=== PATIENT | female | born 1960 | race Two or more races ===

== ENCOUNTER 2018-08-03 09:23 | Inpatient (IN) | payer OTHER ==
[2018-08-03 09:44] VITALS: BMI 23.8
--- NOTE | 2018-08-03 11:10 | HP ---
CIWA Score Nausea/Vomitin-No Nausea/No Vomiting Muscle Tremors: 4-Moderate,w/Arms Extend Anxiety: 3 Agitation: 3 Paroxysmal Sweats: 2 Orientation: 0-Oriented Tacttile Disturbances: 0-None Auditory Disturbances: 0-None Visual Disturbances: 0-None Headache: 0-None Present CIWA-Ar Total Score: 12 - Admission Criteria OASAS Guidelines: Admission for Medically Managed Detox: Requires at least one of the followin. CIWA greater than 12 2. Seizures within the past 24 hours 3. Delirium tremens within the past 24 hours 4. Hallucinations within the past 24 hours 5. Acute intervention needed for co occurring medical disorder 6. Acute intervention needed for co occurring psychiatric disorder 7. Severe withdrawal that cannot be handled at a lower level of care (continued vomiting, continued diarrhea, abnormal vital signs) requiring intravenous medication and/or fluids 8. Admission ROS BHS - HPI Chief Complaint: I need to stop drinking and get my life back in order. Allergies/Adverse Reactions: Allergies Allergy/AdvReac Type Severity Reaction Status Date / Time No Known Allergies Allergy Verified 08/03/18 09:53 History of Present Illness: pt is a 57yr old female seeking detox for treatment for her alcohol dependence. pt states she is not HIV+ but her boyfriend is. therefore she is currently taking valtrex and truvada prophylactically. pt has in her person the valtrex but no truvada. publicity writer called pt pharmacy and confirmed that she picked up her truvada yesterday. Pharmacist insisted not to write any Rx for her truvada because she is going to different facility to get truvada prescription. Pt is to continue to see her PCP to follow regarding her medication. Exam Limitations: No Limitations - Ebola screening Have you traveled outside of the country in the last 21 days: No Have you had contact with anyone from an Ebola affected area: No Have you been sick,other than usual withdrawal symptoms: No Do you have a fever: No - Review of Systems Constitutional: Chills, Diaphoresis, Loss of Appetite, Night Sweats, Changes in sleep EENT: reports: Nose Congestion, Other (pt has a habit of lip smaking because she has no dentures) Respiratory: reports: No Symptoms reported Cardiac: reports: No Symptoms Reported GI: reports: Diarrhea, Poor Fluid Intake : reports: No Symptoms Reported Musculoskeletal: reports: Muscle Pain Integumentary: reports: Flushing, Sweating Neuro: reports: Tingling, Tremors Endocrine: reports: Excessive Sweating, Flushing, Intolerance to Cold, Intolerance to Heat Hematology: reports: No Symptoms Reported Psychiatric: reports: Judgement Intact, Mood/Affect Appropiate, Orientated x3, Agitated, Anxious Other Systems: Reviewed and Negative Patient History - Patient Medical History Hx Anemia: No Hx Asthma: No Hx Chronic Obstructive Pulmonary Disease (COPD): Yes (DOES NOT TAKE ANY MEDICATION) Hx Cardiac Disorders: Yes (DEFRIBILLATOR PLACED 4 MONTHS AGO, STROKE 4 YEARS AGO ) Hx Hypertension: Yes Hx Hypercholesterolemia: No Hx Pacemaker: No HX Cerebrovascular Accident: No Hx Seizures: Yes (1985) Hx Dementia: No Hx Diabetes: No Hx Gastrointestinal Disorders: No Hx Liver Disease: No Hx Genitourinary Disorders: No Hx Sexually Transmitted Disorders: No Hx Renal Disease (ESRD): No Hx Thyroid Disease: No Hx Human Immunodeficiency Virus (HIV): No (Pt is currently on truvada profolacticly because her boyfriend is pos.) Hx Hepatitis C: No (denies) Hx Depression: Yes (on buspar) Hx Suicide Attempt: No Hx Bipolar Disorder: No Hx Schizophrenia: No Other Medical History: anxiety - Patient Surgical History Past Surgical History: Yes Hx Neurologic Surgery: No Hx Cataract Extraction: No Hx Cardiac Surgery: No Hx Lung Surgery: No Hx Breast Surgery: No Hx Breast Biopsy: Yes (2010) Hx Abdominal Surgery: No Hx Appendectomy: No Hx Cholecystectomy: No Hx Genitourinary Surgery: No Hx Section: No Hx Orthopedic Surgery: No Anesthesia Reaction: No - PPD History Previous Implant?: Yes Documented Results: Negative w/o proof Implanted On Prior [facility] Admission?: No PPD to be Administered?: Yes - Reproductive History Patient is a Female of Child Bearing Age (11 -55 yrs old): No Last Menstrual Period: 07/15/04 Patient : No - Smoking Cessation Smoking history: Current every day smoker Have you smoked in the past 12 months: Yes Aproximately how many cigarettes per day: 12 Hx Chewing Tobacco Use: No Initiated information on smoking cessation: Yes 'Breaking Loose' booklet given: 08/03/18 - Substance & Tx. History Hx Alcohol Use: Yes Hx Substance Use: Yes Substance Use Type: Alcohol, Cocaine, Marijuana Hx Substance Use Treatment: Yes (last detox [facility] 05/2018) - Substances Abused Alcohol Route: Oral Frequency: Daily Amount used: 2 PINTS OF RUM Age of first use: 19 Date of Last Use: 08/03/18 Cocaine Route: Smoking Frequency: Daily Amount used: $100-$200 Age of first use: 25 Date of Last Use: 08/02/18 Marijuana/Hashish Route: Smoking Frequency: Daily Amount used: $20 Age of first use: 17 Date of Last Use: 08/02/18 Family Disease History - Family Disease History Family Disease History: Diabetes: Mother, Brother Admission Physical Exam [facility] - Vital Signs Vital Signs: Vital Signs - 24 hr 08/03/18 09:43 Temperature 97.3 F L Pulse Rate 91 H Respiratory 18 Rate Blood Pressure 138/72 - Physical General Appearance: Yes: Appropriately Dressed, Mild Distress, Thin, Tremorous, Irritable, Sweating, Anxious HEENTM: Yes: Hearing grossly Normal, Normal Voice, Nasal Congestion, Rhinorrhea Respiratory: Yes: Lungs Clear, Normal Breath Sounds, No Respiratory Distress Neck: Yes: No masses,lesions,Nodules Breast: Yes: Within Normal Limits Cardiology: Yes: Regular Rhythm, Regular Rate, S1, S2 Abdominal: Yes: Normal Bowel Sounds Genitourinary: Yes: Within Normal Limits Back: Yes: Normal Inspection Musculoskeletal: Yes: full range of Motion, Muscle Pain Extremities: Yes: Normal Inspection, Non-Tender, Tremors Neurological: Yes: Fully Oriented, Alert, Normal Response Integumentary: Yes: Normal Color, Diaphoresis Lymphatic: Yes: Within Normal Limits - Diagnostic (1) Alcohol dependence with uncomplicated withdrawal Current Visit: Yes Status: Chronic (2) Cannabis dependence Current Visit: Yes Status: Chronic (3) Crack cocaine use Current Visit: Yes Status: Chronic (4) At risk for sexually transmitted disease due to partner with HIV Current Visit: No Status: Chronic Comment: pt is currently on antiviral medication for a partner who is +HIV Cleared for Admission [facility] - Detox or Rehab [facility] Level of Care: Medically Managed Detox Regimen/Protocol: Librium [facility] Breath Alcohol Content Breath Alcohol Content: 0 Urine Pregancy Test - Result Urine Test Results: Negative- NO Line Present Urine Drug Screen - Results Drug Screen Negative: No Urine Drug Screen Results: THC-Marijuana, PEDRO-Cocaine
[2018-08-03] MEDS ORDERED: guaiFENesin/D-METHORPHAN HB 10 ML UNIT-DOSE CUPS PO PRN (11:51)
[2018-08-03] MEDS ORDERED: chlordiazePOXIDE HCL 25 MG CAPSULE PO PRN (11:51)
[2018-08-03] MEDS ORDERED: LOPERAMIDE HCL 2 MG CAPSULE PO PRN (11:51)
[2018-08-03] MEDS ORDERED: hydrOXYzine PAMOATE 50 MG CAPSULE (FP) PO PRN (11:51)
[2018-08-03] MEDS ORDERED: MAGNESIUM HYDROX 2400MG/30ML ORAL SUSPENSION 30 ML CUP PO PRN (11:51)
[2018-08-03] MEDS ORDERED: MENTHOL/PHENOL 1 EACH UD MM PRN (11:51)
[2018-08-03] MEDS ORDERED: MAGNESIUM CITRATE 300 ML BOTTLE PO PRN (11:51)
[2018-08-03] MEDS ORDERED: P-EPHED 60MG/TRIPROLIDI 2.5MG TABLET PO PRN (11:51)
[2018-08-03] MEDS ORDERED: IBUPROFEN 400 MG TABLET (FP) PO PRN (11:51)
[2018-08-03] MEDS ORDERED: NICOTINE POLACRILEX 4 MG GUM BUC PRN (11:51)
[2018-08-03] MEDS ORDERED: MAG HYDROX/AL HYDROX/SIMETH 30 ML UNIT-DOSE CUP PO PRN (11:51)
[2018-08-03] MEDS ORDERED: ACETAMINOPHEN 325 MG TABLET (FP) PO PRN (11:51)
[2018-08-03] MEDS ORDERED: chlordiazePOXIDE HCL 25 MG CAPSULE PO ONE (12:00)
--- NOTE | 2018-08-03 16:35 | EKG ---
Test Reason : Blood Pressure : / mmHG Vent. Rate : 081 BPM Atrial Rate : 081 BPM P-R Int : 154 ms QRS Dur : 084 ms QT Int : 396 ms P-R-T Axes : 070 044 050 degrees QTc Int : 460 ms NORMAL SINUS RHYTHM NORMAL ECG NO PREVIOUS ECGS AVAILABLE Confirmed by ABDULKADIR CHILDRESS MD ([id number]) on 08/03/2018 4:35:22 PM Referred By: Confirmed By:ABDULKADIR CHILDRESS MD
[2018-08-03] MEDS: chlordiazePOXIDE HCL 25 MG CAPSULE PO SCH ×2 (17:57→22:01)
[2018-08-03] MEDS: THIAMINE HCL 100 MG TABLET (FP) PO SCH (21:47)
[2018-08-03] MEDS: ATORVASTATIN CA 40 MG TABLET (FP) PO SCH (21:47)
[2018-08-03] MEDS: RANITIDINE HCL 150 MG TABLET (FP) PO SCH (21:47)
[2018-08-03] MEDS: MELATONIN 5 MG TABLETS PO PRN (22:01)
[2018-08-03 23:32] LABS: URINE APPEARANCE TURBID; URINE BILIRUBIN NEGATIVE (<2.0 mg/dL); URINE COLOR YELLOW; URINE GLUCOSE (UA) NEGATIVE (NEGATIVE); URINE KETONE NEGATIVE (NEGATIVE); URINE LEUK ESTERASE 1+ (NEGATIVE); URINE NITRITE NEGATIVE (NEGATIVE); URINE PROTEIN NEGATIVE (NEGATIVE)
[2018-08-03 23:58] LABS: CALCIUM OXALATE CRYSTALS FEW /hpf (NONE SEEN); EPI CELLS RARE /HPF (FEW); URINE MUCUS FEW
[2018-08-04] MEDS: chlordiazePOXIDE HCL 25 MG CAPSULE PO SCH ×4 (06:21→22:10)
[2018-08-04] MEDS: amLODIPine BESYLATE 10 MG TABLET (FP) PO SCH (10:20)
[2018-08-04] MEDS: PRENATAL VITAMINS W/ FOLIC ACID TABLET (FP) PO SCH (10:20)
[2018-08-04] MEDS: PATIENT'S OWN MEDICATION (NON-FORMULARY) (Valacyclovir Hcl [Valtrex -] 1,000 MG) PO SCH (10:20)
[2018-08-04] MEDS: EMTRICITABINE 200MG/TENOFOVIR 300MG PO SCH (10:21)
[2018-08-04] MEDS: NICOTINE 21 MG/24 HOURS TOPICAL PATCH TD SCH (10:21)
[2018-08-04 11:07] LABS: HEMATOCRIT 39.2 % (32.4-45.2); HEMOGLOBIN 12.1 GM/dL (10.7-15.3); MCHC 30.7 g/dl (32.0-36.0); MEAN CELL VOLUME 84.4 fl (80-96); MEAN PLT VOLUME 10.9 fl (7.5-11.1); PLATELET COUNT 354 K/MM3 (134-434); RBC 4.64 M/mm3 (3.60-5.2); RDW 15.9 % (11.6-15.6); WHITE BLOOD COUNT 12.2 K/mm3 (4.0-10.0)
[2018-08-04 11:20] LABS: ALBUMIN 3.9 g/dl (3.4-5.0); ALK PHOS 108 U/L (45-117); ANION GAP 6 MMOL/L (8-16); BILIRUBIN,TOTAL 0.4 mg/dL (0.2-1); BLOOD UREA NITROGEN 26 mg/dL (7-18); CALCIUM 8.8 mg/dL (8.5-10.1); CHLORIDE 105 mmol/L (98-107); CO2 27 mmol/L (21-32); CREATININE 0.8 mg/dL (0.55-1.3); GLUCOSE,RANDOM 107 mg/dL (74-106); POTASSIUM 4.1 mmol/L (3.5-5.1); SGOT/AST 15 U/L (15-37); SGPT/ALT 17 U/L (13-61); SODIUM 139 mmol/L (136-145); TOT PROT 7.3 g/dl (6.4-8.2)
--- NOTE | 2018-08-04 12:11 | PN ---
S CIWA - CIWA Score Nausea/Vomitin-No Nausea/No Vomiting Muscle Tremors: 3 Anxiety: 4-Mod. Anxious/Guarded Agitation: 2 Paroxysmal Sweats: No Perspiration Orientation: 0-Oriented Tacttile Disturbances: 0-None Auditory Disturbances: 0-None Visual Disturbances: 0-None Headache: 0-None Present CIWA-Ar Total Score: 9 BHS Progress Note (SOAP) Subjective: PATIENT IN DETOX FOR ETOH WITHDRAWAL SX. PATIENT C/O INTERRUPTED SLEEP, FEELING IRRITABLE AND SHAKES. Objective: 08/04/18 12:09 Vital Signs Temperature 98.2 F 08/04/18 09:32 Pulse Rate 73 08/04/18 09:32 Respiratory Rate 19 08/04/18 09:32 Blood Pressure 115/60 08/04/18 09:32 O2 Sat by Pulse Oximetry (%) Laboratory Tests 08/03/18 08/04/18 08/04/18 14:32 06:00 06:00 WBC 12.2 H RBC 4.64 Hgb 12.1 Hct 39.2 MCV 84.4 MCH 26.0 MCHC 30.7 L RDW 15.9 H Plt Count 354 MPV 10.9 Sodium 139 Potassium 4.1 Chloride 105 Carbon Dioxide 27 Anion Gap 6 L BUN 26 H Creatinine 0.8 Creat Clearance w eGFR > 60 Random Glucose 107 H Calcium 8.8 Total Bilirubin 0.4 AST 15 ALT 17 Alkaline Phosphatase 108 Total Protein 7.3 Albumin 3.9 Urine Color Yellow Urine Appearance Turbid Urine pH 5.0 Ur Specific [place] 1.027 Urine Protein Negative Urine Glucose (UA) Negative Urine Ketones Negative Urine Blood Negative Urine Nitrite Negative Urine Bilirubin Negative Urine Urobilinogen 2.0 H Ur Leukocyte Esterase 1+ H Urine WBC (Auto) 5 Urine RBC (Auto) 12 Ur Epithelial Cells Rare Calcium Oxalate Crystal Few Urine Mucus Few RPR Titer 08/04/18 06:00 WBC RBC Hgb Hct MCV MCH MCHC RDW Plt Count MPV Sodium Potassium Chloride Carbon Dioxide Anion Gap BUN Creatinine Creat Clearance w eGFR Random Glucose Calcium Total Bilirubin AST ALT Alkaline Phosphatase Total Protein Albumin Urine Color Urine Appearance Urine pH Ur Specific [place] Urine Protein Urine Glucose (UA) Urine Ketones Urine Blood Urine Nitrite Urine Bilirubin Urine Urobilinogen Ur Leukocyte Esterase Urine WBC (Auto) Urine RBC (Auto) Ur Epithelial Cells Calcium Oxalate Crystal Urine Mucus RPR Titer Nonreactive PE: SKIN WARM AND DRY ALERT AND ORIENTED X 3 IRRITABLE DURING EVALUATION EXT FULL ROM, +TREMORS AMB AD RENATO Assessment: 08/04/18 12:10 WITHDRAWAL SX ELEVATED WBC 12.2 Plan: CONTINUE DETOX ENCOURAGE ORAL FLUIDS REPEAT CBC CONTINUE TO MONITOR
--- NOTE | 2018-08-04 13:41 | CONSULT ---
[facility] Psychiatric Consult - Data Date of interview: 08/04/18 Admission source: [facility] Identifying data: Patient is a 57 year old single female, without children, unemployed, domiciled, and supported by [facility]. This is one of multiple admissions for patient. Patient admitted to for alcohol, cannabis, and cocaine dependence. Substance Abuse History: Substance & Tx. History. Hx Alcohol Use: Yes. Hx Substance Use: Yes. Substance Use Type: Alcohol, Cocaine, Marijuana. Hx Substance Use Treatment: Yes (last detox [facility] 05/2018). - Substances Abused. Alcohol. Route: Oral. Frequency: Daily. Amount used: 2 PINTS OF RUM. Age of first use: 19. Date of Last Use: 08/03/18. Cocaine. Route: Smoking. Frequency: Daily. Amount used: $100-$200. Age of first use: 25. Date of Last Use: 08/02/18. Marijuana/Hashish. Route: Smoking. Frequency: Daily. Amount used: $20. Age of first use: 17. Date of Last Use: 08/02/18 Medical History: Defribillator placed 4 months ago (stroke 4 years ago), hypertension, COPD, Currently on Truvada for pre exposure to HIV ( is HIV ) Psychiatric History: Patient deneis h/o psychiatric hospitalization. States current outpatient psychiatric care is provided in the [place] When asked what medication she takes, patient replied, " I don't know. I take them every now and than." Pharmacy claims reviewed. No psychotropic medications noted. Patient denies h/o suicide attempt. Physical/Sexual Abuse/Trauma History: denies. Mental Status Exam - Mental Status Exam Alert and Oriented to: Time, Place, Person Cognitive Function: Good Patient Appearance: Well Groomed Mood: Withdrawn Affect: Mood Congruent Patient Behavior: Fatigued Speech Pattern: Delayed Voice Loudness: Moderately Soft/Quiet Thought Process: Intact, Goal Oriented Thought Disorder: Not Present Hallucinations: Denies Suicidal Ideation: Denies Homicidal Ideation: Denies Insight/Judgement: Poor Sleep: Fair Appetite: Fair Muscle strength/Tone: Normal Gait/Station: Other (Did not observe patient's gait.) Psychiatric Findings - Problem List ([place] 1, 2,3) (1) Alcohol dependence with uncomplicated withdrawal Current Visit: Yes Status: Acute (2) Cannabis dependence Current Visit: Yes Status: Chronic (3) Crack cocaine use Current Visit: Yes Status: Chronic (4) Substance induced mood disorder Current Visit: No Status: Suspected - Initial Treatment Plan Initial Treatment Plan: Psychoeducation provided. Detoxification in progress. Observation.
[2018-08-04] MEDS: RANITIDINE HCL 150 MG TABLET (FP) PO SCH (22:10)
[2018-08-04] MEDS: ATORVASTATIN CA 40 MG TABLET (FP) PO SCH (22:10)
[2018-08-04] MEDS: THIAMINE HCL 100 MG TABLET (FP) PO SCH (22:10)
[2018-08-04] MEDS: MELATONIN 5 MG TABLETS PO PRN (22:10)
[2018-08-05] MEDS: chlordiazePOXIDE HCL 25 MG CAPSULE PO SCH ×2 (06:32→10:09)
[2018-08-05 10:01] LABS: BASO % 0.6 % (0-2.0); HEMATOCRIT 36.7 % (32.4-45.2); HEMOGLOBIN 11.4 GM/dL (10.7-15.3); MCHC 31.1 g/dl (32.0-36.0); WHITE BLOOD COUNT 8.5 K/mm3 (4.0-10.0)
[2018-08-05 10:04] LABS: EOS % 4.7 % (0-4.5); LYMPH % 37.4 % (8-40); MCH 26.2 pg (25.7-33.7); MEAN CELL VOLUME 84.2 fl (80-96); MEAN PLT VOLUME 10.4 fl (7.5-11.1); MONO % 6.1 % (3.8-10.2); NEUT % 51.2 % (42.8-82.8); PLATELET COUNT 316 K/MM3 (134-434); RBC 4.36 M/mm3 (3.60-5.2)
[2018-08-05] MEDS: PRENATAL VITAMINS W/ FOLIC ACID TABLET (FP) PO SCH (10:08)
[2018-08-05] MEDS: amLODIPine BESYLATE 10 MG TABLET (FP) PO SCH (10:08)
[2018-08-05] MEDS: PATIENT'S OWN MEDICATION (NON-FORMULARY) (Valacyclovir Hcl [Valtrex -] 1,000 MG) PO SCH (10:09)
[2018-08-05] MEDS: EMTRICITABINE 200MG/TENOFOVIR 300MG PO SCH (10:10)
[2018-08-05] MEDS: NICOTINE 21 MG/24 HOURS TOPICAL PATCH TD SCH (10:11)
--- NOTE | 2018-08-05 16:22 | PN ---
S CIWA - CIWA Score Nausea/Vomitin-No Nausea/No Vomiting Muscle Tremors: 3 Anxiety: 3 Agitation: 0-Normal Activity Paroxysmal Sweats: No Perspiration Orientation: 0-Oriented Tacttile Disturbances: 2-Mild Itch/Numbness/Burn Auditory Disturbances: 1-Very Mild Visual Disturbances: 1-Very Mild Sensitivity Headache: 0-None Present CIWA-Ar Total Score: 10 BHS Progress Note (SOAP) Subjective: Tremors, Fatigue, Body Aches. Objective: PATIENT A & O X 3. IN NO ACUTE DISTRESS. 08/05/18 16:23 Vital Signs Temperature 97.2 F L 08/05/18 09:00 Pulse Rate 73 08/05/18 09:00 Respiratory Rate 18 08/05/18 09:00 Blood Pressure 117/61 08/05/18 09:00 O2 Sat by Pulse Oximetry (%) Laboratory Tests 08/03/18 08/04/18 08/04/18 14:32 06:00 06:00 WBC 12.2 H RBC 4.64 Hgb 12.1 Hct 39.2 MCV 84.4 MCH 26.0 MCHC 30.7 L RDW 15.9 H Plt Count 354 MPV 10.9 Absolute Neuts (auto) Neutrophils % Lymphocytes % Monocytes % Eosinophils % Basophils % Nucleated RBC % Sodium 139 Potassium 4.1 Chloride 105 Carbon Dioxide 27 Anion Gap 6 L BUN 26 H Creatinine 0.8 Creat Clearance w eGFR > 60 Random Glucose 107 H Calcium 8.8 Total Bilirubin 0.4 AST 15 ALT 17 Alkaline Phosphatase 108 Total Protein 7.3 Albumin 3.9 Urine Color Yellow Urine Appearance Turbid Urine pH 5.0 Ur Specific [place] 1.027 Urine Protein Negative Urine Glucose (UA) Negative Urine Ketones Negative Urine Blood Negative Urine Nitrite Negative Urine Bilirubin Negative Urine Urobilinogen 2.0 H Ur Leukocyte Esterase 1+ H Urine WBC (Auto) 5 Urine RBC (Auto) 12 Ur Epithelial Cells Rare Calcium Oxalate Crystal Few Urine Mucus Few RPR Titer 08/04/18 08/05/18 06:00 08:00 WBC 8.5 RBC 4.36 Hgb 11.4 Hct 36.7 MCV 84.2 MCH 26.2 MCHC 31.1 L RDW 16.0 H Plt Count 316 MPV 10.4 Absolute Neuts (auto) 4.4 Neutrophils % 51.2 Lymphocytes % 37.4 Monocytes % 6.1 Eosinophils % 4.7 H Basophils % 0.6 Nucleated RBC % 0 Sodium Potassium Chloride Carbon Dioxide Anion Gap BUN Creatinine Creat Clearance w eGFR Random Glucose Calcium Total Bilirubin AST ALT Alkaline Phosphatase Total Protein Albumin Urine Color Urine Appearance Urine pH Ur Specific [place] Urine Protein Urine Glucose (UA) Urine Ketones Urine Blood Urine Nitrite Urine Bilirubin Urine Urobilinogen Ur Leukocyte Esterase Urine WBC (Auto) Urine RBC (Auto) Ur Epithelial Cells Calcium Oxalate Crystal Urine Mucus RPR Titer Nonreactive LABS NOTED. RESULTS OF REPEAT CBC NOTED. WBC NOW WITHIN NORMAL LIMITS. 08/05/18 16:25 Assessment: 08/05/18 16:23 WITHDRAWAL SYMPTOMS. Plan: CONTINUE DETOX. INCREASE DAILY PO FLUID INTAKE.
[2018-08-05] MEDS: chlordiazePOXIDE 5 MG CAPSULE PO SCH ×2 (17:21→22:07)
[2018-08-05] MEDS: RANITIDINE HCL 150 MG TABLET (FP) PO SCH (22:07)
[2018-08-05] MEDS: ATORVASTATIN CA 40 MG TABLET (FP) PO SCH (22:07)
[2018-08-05] MEDS: MELATONIN 5 MG TABLETS PO PRN (22:07)
[2018-08-05] MEDS: THIAMINE HCL 100 MG TABLET (FP) PO SCH (22:07)
[2018-08-06] MEDS: chlordiazePOXIDE 5 MG CAPSULE PO SCH ×2 (06:27→10:51)
[2018-08-06] MEDS: PRENATAL VITAMINS W/ FOLIC ACID TABLET (FP) PO SCH (10:51)
[2018-08-06] MEDS: amLODIPine BESYLATE 10 MG TABLET (FP) PO SCH (10:51)
[2018-08-06] MEDS: NICOTINE 21 MG/24 HOURS TOPICAL PATCH TD SCH (10:52)
[2018-08-06] MEDS: PATIENT'S OWN MEDICATION (NON-FORMULARY) (Valacyclovir Hcl [Valtrex -] 1,000 MG) PO SCH (10:52)
[2018-08-06] MEDS: EMTRICITABINE 200MG/TENOFOVIR 300MG PO SCH (12:35)
[2018-08-06] MEDS: chlordiazePOXIDE HCL 10 MG CAPSULE PO SCH ×2 (17:16→22:49)
--- NOTE | 2018-08-06 17:26 | PN ---
BHS Progress Note (SOAP) Subjective: Tremors, Constipation, Stomach Cramping. Objective: PATIENT A & O X 3, OBSERVED AMBULATING ON UNIT. IN NO ACUTE DISTRESS. 08/06/18 17:25 Vital Signs Temperature 98.2 F 08/06/18 16:56 Pulse Rate 98 H 08/06/18 16:56 Respiratory Rate 18 08/06/18 16:56 Blood Pressure 149/70 08/06/18 16:56 O2 Sat by Pulse Oximetry (%) Laboratory Tests 08/03/18 08/04/18 08/04/18 14:32 06:00 06:00 WBC 12.2 H RBC 4.64 Hgb 12.1 Hct 39.2 MCV 84.4 MCH 26.0 MCHC 30.7 L RDW 15.9 H Plt Count 354 MPV 10.9 Absolute Neuts (auto) Neutrophils % Lymphocytes % Monocytes % Eosinophils % Basophils % Nucleated RBC % Sodium 139 Potassium 4.1 Chloride 105 Carbon Dioxide 27 Anion Gap 6 L BUN 26 H Creatinine 0.8 Creat Clearance w eGFR > 60 Random Glucose 107 H Calcium 8.8 Total Bilirubin 0.4 AST 15 ALT 17 Alkaline Phosphatase 108 Total Protein 7.3 Albumin 3.9 Urine Color Yellow Urine Appearance Turbid Urine pH 5.0 Ur Specific [place] 1.027 Urine Protein Negative Urine Glucose (UA) Negative Urine Ketones Negative Urine Blood Negative Urine Nitrite Negative Urine Bilirubin Negative Urine Urobilinogen 2.0 H Ur Leukocyte Esterase 1+ H Urine WBC (Auto) 5 Urine RBC (Auto) 12 Ur Epithelial Cells Rare Calcium Oxalate Crystal Few Urine Mucus Few RPR Titer 08/04/18 08/05/18 06:00 08:00 WBC 8.5 RBC 4.36 Hgb 11.4 Hct 36.7 MCV 84.2 MCH 26.2 MCHC 31.1 L RDW 16.0 H Plt Count 316 MPV 10.4 Absolute Neuts (auto) 4.4 Neutrophils % 51.2 Lymphocytes % 37.4 Monocytes % 6.1 Eosinophils % 4.7 H Basophils % 0.6 Nucleated RBC % 0 Sodium Potassium Chloride Carbon Dioxide Anion Gap BUN Creatinine Creat Clearance w eGFR Random Glucose Calcium Total Bilirubin AST ALT Alkaline Phosphatase Total Protein Albumin Urine Color Urine Appearance Urine pH Ur Specific [place] Urine Protein Urine Glucose (UA) Urine Ketones Urine Blood Urine Nitrite Urine Bilirubin Urine Urobilinogen Ur Leukocyte Esterase Urine WBC (Auto) Urine RBC (Auto) Ur Epithelial Cells Calcium Oxalate Crystal Urine Mucus RPR Titer Nonreactive LABS NOTED. Assessment: 08/06/18 17:25 WITHDRAWAL SYMPTOMS. Plan: CONTINUE DETOX. INCREASE DAILY PO FLUID INTAKE.
[2018-08-06] MEDS: RANITIDINE HCL 150 MG TABLET (FP) PO SCH (22:49)
[2018-08-06] MEDS: THIAMINE HCL 100 MG TABLET (FP) PO SCH (22:49)
[2018-08-06] MEDS: ATORVASTATIN CA 40 MG TABLET (FP) PO SCH (22:49)
[2018-08-07] MEDS: chlordiazePOXIDE HCL 10 MG CAPSULE PO SCH ×2 (07:00→11:28)
[2018-08-07 07:02] VITALS: PULSE 86; TEMP 98.1
[2018-08-07 09:57] VITALS: BP 115/73
[2018-08-07] MEDS: EMTRICITABINE 200MG/TENOFOVIR 300MG PO SCH (11:27)
[2018-08-07] MEDS: PRENATAL VITAMINS W/ FOLIC ACID TABLET (FP) PO SCH (11:27)
[2018-08-07] MEDS: amLODIPine BESYLATE 10 MG TABLET (FP) PO SCH (11:28)
[2018-08-07] MEDS: NICOTINE 21 MG/24 HOURS TOPICAL PATCH TD SCH (11:32)
[2018-08-07] MEDS: PATIENT'S OWN MEDICATION (NON-FORMULARY) (Valacyclovir Hcl [Valtrex -] 1,000 MG) PO SCH (12:15)
--- NOTE | 2018-08-07 13:58 | DS ---
[facility] Detox Discharge Summary Admission Date: 08/03/18 Discharge Date: 08/07/18 - History Present History: Alcohol Dependence, Cannabis Dependence, Cocaine Dependence Additional Comments: PATIENT SCHEDULED FOR DISCHARGE FROM DETOX UNIT TO DAY. PATIENT GOING TO [facility] ([facility] FOR AFTERCARE. PATIENT WAS DISCHARGED FROM DETOX UNIT TO BE TAKEN TO REHAB UNIT IN STABLE MEDICAL CONDITION. Pertinent Past History: HTN, History of Cardiac Defibrillator Placement, History of Seizures, H.I.V. Prophylaxis, History of Stroke, History of Depression, History of Anxiety, C.O.P.D. - Physical Exam Results Vital Signs: Vital Signs Temperature 98.1 F 08/07/18 09:57 Pulse Rate 86 08/07/18 09:57 Respiratory Rate 18 08/07/18 09:57 Blood Pressure 115/73 08/07/18 09:57 O2 Sat by Pulse Oximetry (%) Pertinent Admission Physical Exam Findings: WITHDRAWAL SYMPTOMS. Laboratory Tests 08/03/18 08/04/18 08/04/18 14:32 06:00 06:00 WBC 12.2 H RBC 4.64 Hgb 12.1 Hct 39.2 MCV 84.4 MCH 26.0 MCHC 30.7 L RDW 15.9 H Plt Count 354 MPV 10.9 Absolute Neuts (auto) Neutrophils % Lymphocytes % Monocytes % Eosinophils % Basophils % Nucleated RBC % Sodium 139 Potassium 4.1 Chloride 105 Carbon Dioxide 27 Anion Gap 6 L BUN 26 H Creatinine 0.8 Creat Clearance w eGFR > 60 Random Glucose 107 H Calcium 8.8 Total Bilirubin 0.4 AST 15 ALT 17 Alkaline Phosphatase 108 Total Protein 7.3 Albumin 3.9 Urine Color Yellow Urine Appearance Turbid Urine pH 5.0 Ur Specific [place] 1.027 Urine Protein Negative Urine Glucose (UA) Negative Urine Ketones Negative Urine Blood Negative Urine Nitrite Negative Urine Bilirubin Negative Urine Urobilinogen 2.0 H Ur Leukocyte Esterase 1+ H Urine WBC (Auto) 5 Urine RBC (Auto) 12 Ur Epithelial Cells Rare Calcium Oxalate Crystal Few Urine Mucus Few RPR Titer 08/04/18 08/05/18 06:00 08:00 WBC 8.5 RBC 4.36 Hgb 11.4 Hct 36.7 MCV 84.2 MCH 26.2 MCHC 31.1 L RDW 16.0 H Plt Count 316 MPV 10.4 Absolute Neuts (auto) 4.4 Neutrophils % 51.2 Lymphocytes % 37.4 Monocytes % 6.1 Eosinophils % 4.7 H Basophils % 0.6 Nucleated RBC % 0 Sodium Potassium Chloride Carbon Dioxide Anion Gap BUN Creatinine Creat Clearance w eGFR Random Glucose Calcium Total Bilirubin AST ALT Alkaline Phosphatase Total Protein Albumin Urine Color Urine Appearance Urine pH Ur Specific [place] Urine Protein Urine Glucose (UA) Urine Ketones Urine Blood Urine Nitrite Urine Bilirubin Urine Urobilinogen Ur Leukocyte Esterase Urine WBC (Auto) Urine RBC (Auto) Ur Epithelial Cells Calcium Oxalate Crystal Urine Mucus RPR Titer Nonreactive LABS NOTED. - Treatment Hospital Course: Detox Protocol Followed, Detoxed Safely, Responded well, Discharged Condition Good, Rehab Referral Accepted Patient has Accepted a Rehab Referral to: [facility] ([place], [place]). - Medication Discharge Medications: Ambulatory Orders Amlodipine Besylate 10 mg PO DAILY 08/03/18 Buspirone HCl [Buspar -] 20 mg PO BID 08/03/18 Emtricitabine/Tenofovir [Truvada] 1 tab PO DAILY 08/03/18 Loratadine 10 mg PO DAILY 08/03/18 Multivitamin [Multiple Vitamins] 1 each PO DAILY 08/03/18 Ranitidine HCl 150 mg PO HS 08/03/18 Simvastatin 40 mg PO DAILY 08/03/18 Valacyclovir HCl [Valtrex -] 1,000 mg PO DAILY 08/03/18 Vitamin B Complex 1 each PO DAILY 08/03/18 - Diagnosis (1) Alcohol dependence with uncomplicated withdrawal Current Visit: Yes Status: Acute (2) Cannabis dependence Current Visit: Yes Status: Chronic (3) Crack cocaine use Current Visit: Yes Status: Chronic (4) Substance induced mood disorder Current Visit: Yes Status: Suspected - AMA Did Patient Leave Against Medical Advice: No
== END 2018-08-07 11:45 | disposition other institution (70) | DRG 774 ==
LOC: YASAS 09:23 → Y6N 11:46
PROC: HZ2ZZZZ Detoxification Services for Substance Abuse Treatment (ICD-10-PCS; principal; 2018-08-03)
DX: F10.230 Alcohol dependence with withdrawal, uncomplicated (principal); F14.90 Cocaine use, unspecified, uncomplicated; F12.20 Cannabis dependence, uncomplicated; F19.24 Other psychoactive substance dependence with psychoactive substance-induced mood disorder; I10 Essential (primary) hypertension; J44.9 Chronic obstructive pulmonary disease, unspecified; Z20.6 Contact with and (suspected) exposure to human immunodeficiency virus [HIV]; Z86.73 Personal history of transient ischemic attack (TIA), and cerebral infarction without residual deficits; Z95.810 Presence of automatic (implantable) cardiac defibrillator; Z86.69 Personal history of other diseases of the nervous system and sense organs
CPT/HCPCS: 36415; 80053; 81003; 81015; 85025; 85027; 86593; 93005; 93010

== ENCOUNTER 2018-08-07 11:48 | Inpatient (IN) | payer OTHER ==
[2018-08-07] MEDS ORDERED: PNEUMOC 13-VAL CONJ-DIP CRM/PF 0.5 ML DISP.SYRIN IM ONE (12:32)
[2018-08-07 12:38] VITALS: BMI 24.3
--- NOTE | 2018-08-07 13:23 | HP ---
Psychiatrist Admission - Data Date of interview: 08/07/18 Admission source: [address] [place] [address] Identifying data: This is the first admission to [address] [place] [address] this 57 years old single childless female,res[facility] in [facility]. Medical History: CAD with defibrillator. Psychiatric History: denies previous psychiatric history,feels nervious, depressed at times.No history of psychiatric admissions,no psychiatric OPD care.No suicidal history.Remains anxious. Physical/Sexual Abuse/Trauma History: not willing to discuss Vital Signs: Vital Signs - 24 hr 08/07/18 12:32 Temperature 97.3 F L Pulse Rate 96 H Respiratory 17 Rate Blood Pressure 111/76 Allergies/Adverse Reactions: Allergies Allergy/AdvReac Type Severity Reaction Status Date / Time No Known Allergies Allergy Verified 08/03/18 09:53 Concur with the findings of this exam: Yes - Substance Abuse/Tx History Hx Alcohol Use: Yes (drinking since 18 yo,rum 1 bottle daily) Hx Substance Use: Yes (cocaine then crack since ,spending more than $ 100 daiky) Substance Use Type: Alcohol, Cocaine Hx Substance Use Treatment: Yes (completed inpatient inpatient [facility] 3 months ago) Mental Status Exam - Mental Status Exam Alert and Oriented to: Time, Place, Person Cognitive Function: Grossly Intact Patient Appearance: Unkempt Mood: Nervous Affect: Mood Congruent, Labile Patient Behavior: Cooperative Speech Pattern: Clear Voice Loudness: Normal Thought Process: Goal Oriented Thought Disorder: Not Present Hallucinations: Denies Suicidal Ideation: Denies Homicidal Ideation: Denies Insight/Judgement: Fair Sleep: Fair Appetite: Good Muscle strength/Tone: Normal Gait/Station: Normal Psychiatric Findings - Problem List ([place] 1, 2,3) (1) Cannabis dependence Current Visit: Yes Status: Chronic (2) Crack cocaine use Current Visit: Yes Status: Chronic (3) Substance induced mood disorder Current Visit: Yes Status: Suspected (4) CAD (coronary artery disease) Current Visit: Yes Status: Chronic - Initial Treatment Plan Initial Treatment Plan: Vistaril 25 mg po qid,Melatonin 3 mg po hs. Willl monitor progress.
[2018-08-07] MEDS ORDERED: MENTHOL/PHENOL 1 EACH UD MM PRN (13:44)
[2018-08-07] MEDS ORDERED: guaiFENesin/D-METHORPHAN HB 10 ML UNIT-DOSE CUPS PO PRN (13:44)
[2018-08-07] MEDS ORDERED: MAGNESIUM CITRATE 300 ML BOTTLE PO PRN (13:44)
[2018-08-07] MEDS ORDERED: P-EPHED 60MG/TRIPROLIDI 2.5MG TABLET PO PRN (13:44)
[2018-08-07] MEDS ORDERED: LOPERAMIDE HCL 2 MG CAPSULE PO PRN (13:44)
[2018-08-07] MEDS ORDERED: IBUPROFEN 400 MG TABLET (FP) PO PRN (13:44)
[2018-08-07] MEDS ORDERED: NICOTINE POLACRILEX 4 MG GUM BUC PRN (13:44)
[2018-08-07] MEDS ORDERED: MAGNESIUM HYDROX 2400MG/30ML ORAL SUSPENSION 30 ML CUP PO PRN (13:44)
[2018-08-07] MEDS ORDERED: ACETAMINOPHEN 325 MG TABLET (FP) PO PRN (13:44)
[2018-08-07] MEDS ORDERED: MAG HYDROX/AL HYDROX/SIMETH 30 ML UNIT-DOSE CUP PO PRN (13:44)
--- NOTE | 2018-08-07 13:54 | HP ---
[facility] Rehab Assess/Revision - Admission History Admitted to Rehab from: [facility] Date of Admission to Rehab: 08/07/2018 - Vital signs Vital Signs: Vital Signs Period Temp Pulse Resp BP Sys/[place]es Pulse Ox Last 24 Hr 97.3 F 96 17 111/76 - Findings Detox History & Physical reviewed: Yes Concur with findings: Yes Comments/Additional Findings: PATIENT'S MEDICAL / MEDICATION HISTORY REVIEWED PRIOR TO DISCHARGE FROM DETOX UNIT. PATIENT WAS DISCHARGED FROM DETOX UNIT TO BE TAKEN TO REHAB UNIT IN STABLE MEDICAL CONDITION. Inpatient Rehab Admission - Initial Determination Are CD services needed?: Yes Free of communicable disease: Yes Not in need of hospitalization: Yes - Rehab Admission Criteria Previous failed treatment: Yes Comorbidities: Yes Patient is meeting Inpatient Rehab admission criteria:: Yes
[2018-08-07] MEDS ORDERED: hydrOXYzine PAMOATE 50 MG CAPSULE (FP) PO SCH (14:00)
[2018-08-07] MEDS: hydrOXYzine PAMOATE 25 MG CAPSULE (FP) PO SCH ×2 (19:42→23:46)
[2018-08-07] MEDS ORDERED: PT OWN MED DRAWER 7, Y5N ONE (21:28)
[2018-08-07] MEDS: THIAMINE HCL 100 MG TABLET (FP) PO SCH (21:58)
[2018-08-07] MEDS: ATORVASTATIN CA 20 MG TABLET (FP) PO SCH (21:58)
[2018-08-07] MEDS: RANITIDINE HCL 150 MG TABLET (FP) PO SCH (21:58)
[2018-08-07] MEDS: MELATONIN 1 MG TABLET PO SCH (21:59)
[2018-08-07] MEDS ORDERED: MELATONIN 5 MG TABLETS PO PRN (22:00)
[2018-08-07] MEDS ORDERED: ATORVASTATIN CA 40 MG TABLET (FP) PO SCH (22:00)
[2018-08-08] MEDS: hydrOXYzine PAMOATE 25 MG CAPSULE (FP) PO SCH ×3 (06:57→18:00)
[2018-08-08] MEDS: NICOTINE 21 MG/24 HOURS TOPICAL PATCH TD SCH (10:07)
[2018-08-08] MEDS: EMTRICITABINE 200MG/TENOFOVIR 300MG PO SCH (10:07)
[2018-08-08] MEDS: PRENATAL VITAMINS W/ FOLIC ACID TABLET (FP) PO SCH (10:07)
[2018-08-08] MEDS: amLODIPine BESYLATE 10 MG TABLET (FP) PO SCH (10:07)
[2018-08-08] MEDS: PATIENT'S OWN MEDICATION (NON-FORMULARY) (Valacyclovir Hcl [Valtrex -] 1,000 MG) PO SCH (10:08)
[2018-08-08] MEDS ORDERED: PNEUMOCOCCAL 23 VACCINE 0.5 ML VIAL IM ONE (12:00)
[2018-08-08] MEDS: THIAMINE HCL 100 MG TABLET (FP) PO SCH (21:43)
[2018-08-08] MEDS: RANITIDINE HCL 150 MG TABLET (FP) PO SCH (21:43)
[2018-08-08] MEDS: ATORVASTATIN CA 20 MG TABLET (FP) PO SCH (21:43)
[2018-08-08] MEDS: MELATONIN 1 MG TABLET PO SCH (21:44)
[2018-08-08] MEDS ORDERED: PT OWN MED DRAWER 7, Y5N ONE (21:46)
[2018-08-09] MEDS: hydrOXYzine PAMOATE 25 MG CAPSULE (FP) PO SCH ×4 (00:51→18:30)
[2018-08-09] MEDS: PATIENT'S OWN MEDICATION (NON-FORMULARY) (Valacyclovir Hcl [Valtrex -] 1,000 MG) PO SCH (10:35)
[2018-08-09] MEDS: PRENATAL VITAMINS W/ FOLIC ACID TABLET (FP) PO SCH (10:35)
[2018-08-09] MEDS: amLODIPine BESYLATE 10 MG TABLET (FP) PO SCH (10:35)
[2018-08-09] MEDS: NICOTINE 21 MG/24 HOURS TOPICAL PATCH TD SCH (10:36)
[2018-08-09] MEDS: EMTRICITABINE 200MG/TENOFOVIR 300MG PO SCH (10:36)
[2018-08-09] MEDS: THIAMINE HCL 100 MG TABLET (FP) PO SCH (21:21)
[2018-08-09] MEDS: RANITIDINE HCL 150 MG TABLET (FP) PO SCH (21:22)
[2018-08-09] MEDS: ATORVASTATIN CA 20 MG TABLET (FP) PO SCH (21:22)
[2018-08-09] MEDS: MELATONIN 1 MG TABLET PO SCH (21:23)
[2018-08-10] MEDS: hydrOXYzine PAMOATE 25 MG CAPSULE (FP) PO SCH ×4 (00:50→18:00)
[2018-08-10] MEDS ORDERED: PT OWN MED DRAWER 7, Y5N ONE (08:38)
[2018-08-10] MEDS: NICOTINE 21 MG/24 HOURS TOPICAL PATCH TD SCH (09:54)
[2018-08-10] MEDS: PRENATAL VITAMINS W/ FOLIC ACID TABLET (FP) PO SCH (09:55)
[2018-08-10] MEDS: amLODIPine BESYLATE 10 MG TABLET (FP) PO SCH (09:55)
[2018-08-10] MEDS: PATIENT'S OWN MEDICATION (NON-FORMULARY) (Valacyclovir Hcl [Valtrex -] 1,000 MG) PO SCH (09:55)
[2018-08-10] MEDS: EMTRICITABINE 200MG/TENOFOVIR 300MG PO SCH (09:55)
[2018-08-10] MEDS: THIAMINE HCL 100 MG TABLET (FP) PO SCH (21:20)
[2018-08-10] MEDS: MELATONIN 1 MG TABLET PO SCH (21:20)
[2018-08-10] MEDS: RANITIDINE HCL 150 MG TABLET (FP) PO SCH (21:20)
[2018-08-10] MEDS: ATORVASTATIN CA 20 MG TABLET (FP) PO SCH (21:20)
[2018-08-11] MEDS: hydrOXYzine PAMOATE 25 MG CAPSULE (FP) PO SCH ×5 (00:53→23:56)
[2018-08-11] MEDS ORDERED: PT OWN MED DRAWER 7, Y5N ONE (08:37)
[2018-08-11] MEDS: amLODIPine BESYLATE 10 MG TABLET (FP) PO SCH (09:47)
[2018-08-11] MEDS: PRENATAL VITAMINS W/ FOLIC ACID TABLET (FP) PO SCH (09:47)
[2018-08-11] MEDS: PATIENT'S OWN MEDICATION (NON-FORMULARY) (Valacyclovir Hcl [Valtrex -] 1,000 MG) PO SCH (09:48)
[2018-08-11] MEDS: NICOTINE 21 MG/24 HOURS TOPICAL PATCH TD SCH (09:48)
[2018-08-11] MEDS: EMTRICITABINE 200MG/TENOFOVIR 300MG PO SCH (09:48)
[2018-08-11] MEDS: RANITIDINE HCL 150 MG TABLET (FP) PO SCH (21:06)
[2018-08-11] MEDS: THIAMINE HCL 100 MG TABLET (FP) PO SCH (21:06)
[2018-08-11] MEDS: MELATONIN 1 MG TABLET PO SCH (21:06)
[2018-08-11] MEDS: ATORVASTATIN CA 20 MG TABLET (FP) PO SCH (21:06)
[2018-08-12] MEDS: hydrOXYzine PAMOATE 25 MG CAPSULE (FP) PO SCH (06:37)
[2018-08-12 07:01] VITALS: TEMP 97.7
[2018-08-12] MEDS ORDERED: PT OWN MED DRAWER 7, Y5N ONE (08:26)
[2018-08-12] MEDS: amLODIPine BESYLATE 10 MG TABLET (FP) PO SCH (09:40)
[2018-08-12] MEDS: PRENATAL VITAMINS W/ FOLIC ACID TABLET (FP) PO SCH (09:41)
[2018-08-12] MEDS: EMTRICITABINE 200MG/TENOFOVIR 300MG PO SCH (09:41)
[2018-08-12] MEDS: PATIENT'S OWN MEDICATION (NON-FORMULARY) (Valacyclovir Hcl [Valtrex -] 1,000 MG) PO SCH (09:41)
[2018-08-12] MEDS: NICOTINE 21 MG/24 HOURS TOPICAL PATCH TD SCH (09:42)
[2018-08-12 09:53] VITALS: BP 116/73; PULSE 80
== END 2018-08-12 10:07 | disposition left against medical advice (07) | DRG 770 ==
LOC: YASAS 11:48 → Y3E 11:49
PROVIDERS: ADMIT Psychiatry & Neurology Psychiatry; ATTEND Psychiatry & Neurology Psychiatry
PROC: HZ42ZZZ Group Counseling for Substance Abuse Treatment, Cognitive-Behavioral (ICD-10-PCS; principal; 2018-08-07)
DX: F10.20 Alcohol dependence, uncomplicated (principal); F12.20 Cannabis dependence, uncomplicated; F14.10 Cocaine abuse, uncomplicated; F19.24 Other psychoactive substance dependence with psychoactive substance-induced mood disorder; I25.10 Atherosclerotic heart disease of native coronary artery without angina pectoris; Z95.810 Presence of automatic (implantable) cardiac defibrillator
CPT/HCPCS: 90732; G0009

== ENCOUNTER 2018-09-25 13:16 | Inpatient (IN) | payer OTHER ==
[2018-09-25 13:59] VITALS: BMI 22.4
--- NOTE | 2018-09-25 19:23 | HP ---
"CIWA Score Nausea/Vomitin-No Nausea/No Vomiting Muscle Tremors: 3 Anxiety: 4-Mod. Anxious/Guarded Agitation: 4-Moderately Restless Paroxysmal Sweats: 3 (Increased facial moisture) Orientation: 0-Oriented Tacttile Disturbances: 0-None Auditory Disturbances: 0-None Visual Disturbances: 0-None Headache: 0-None Present CIWA-Ar Total Score: 14 - Admission Criteria [facility]ASAS Guidelines: Admission for Medically Managed Detox: Requires at least one of the followin. CIWA greater than 12 2. Seizures within the past 24 hours 3. Delirium tremens within the past 24 hours 4. Hallucinations within the past 24 hours 5. Acute intervention needed for co occurring medical disorder 6. Acute intervention needed for co occurring psychiatric disorder 7. Severe withdrawal that cannot be handled at a lower level of care (continued vomiting, continued diarrhea, abnormal vital signs) requiring intravenous medication and/or fluids 8. Patient presents the following: CIWA greater than 12 (TIMMY 0.009) Admission Criteria Met: Admission criteria met Admission ROS [facility] - [facility] Chief Complaint: Here for alcohol withdrawal and help with my crack and marijuana use. Allergies/Adverse Reactions: Allergies Allergy/AdvReac Type Severity Reaction Status Date / Time No Known Allergies Allergy Verified 09/25/18 18:09 History of Present Illness: States here to stop using alcohol, crack/cocaine and marijuana. Was discharged in August and states used the same day of discharge. Discussed with patient loss of tolerance and overdose risks after detox and rehab. States this time plans on going to an out-patient program upon discharge. Alcohol use began at age 19. Cocaine use began at age 18. Crack @ 28. Marijuana use began at age 16. Nicotine use began at age 16. Declines nicotine patch or gum. States 1 seizure in 1995 - r/t trauma. Hx: blackouts -last approx 3 weeks ago. Denies overdose. Hx: HTN, Defibrillator x 6 years, Cholesterolemia, anal herpes, COPD w/ asthma ( States last exacerbation 2 years ago) EKG at [facility] on 08/03/18 - indicates NSR. Hx: Hx Insomnia, Depression. Denies thoughts of harming self or others. States sees a MH Provider @ [facility]. States not always compliant w/ medications. States no meds for last 3 days. Search Terms: Jazmin Bobo, 1960 Search Date: 09/25/2018 07:18:12 PM The Drug Utilization Report below displays all of the controlled substance prescriptions, if any, that your patient has filled in the last twelve months. The information displayed on this report is compiled from pharmacy submissions to the Department, and accurately reflects the information as submitted by the pharmacies. This report was requested by: Alia Brown | Reference #: [id number] There are no results for the search terms that you entered. Exam Limitations: No Limitations - Ebola screening Have you traveled outside of the country in the last 21 days: No Have you had contact with anyone from an Ebola affected area: No Have you been sick,other than usual withdrawal symptoms: No Do you have a fever: No - Review of Systems Constitutional: Changes in sleep (Difficulty falling and staying asleep), Unintentional Wgt. Loss (States lost 40 lbs and requesting Nutrament.) EENT: reports: Blurred Vision, Nose Bleeding (Occ nose bleeds), Dental Problems (Missing teeth/wears dentures. Chews and swallows okay.) Respiratory: reports: SOB with Exertion (With walking ans climbing steps.) Cardiac: reports: Other (States had a internal defibrillator x 6 years.) GI: reports: Indigestion (Hx acid reflux) : reports: No Symptoms Reported Musculoskeletal: reports: No Symptoms Reported Integumentary: reports: Rash (On both elbows - states eczema) Neuro: reports: Tremors Endocrine: reports: Increased Thirst Hematology: reports: No Symptoms Reported Psychiatric: reports: Judgement Intact, Orientated x3, Agitated, Anxious, Depressed (Denies thoughts of harming self or others) Patient History - Patient Medical History Hx Anemia: No Hx Asthma: No Hx Chronic Obstructive Pulmonary Disease (COPD): Yes Hx Cardiac Disorders: Yes (L HEART DEFIBRILLATOR) Hx Hypertension: Yes Hx Hypercholesterolemia: No Hx Pacemaker: No HX Cerebrovascular Accident: No Hx Seizures: No Hx Dementia: No Hx Diabetes: No Hx Gastrointestinal Disorders: No Hx Liver Disease: No Hx Genitourinary Disorders: No Hx Sexually Transmitted Disorders: Yes (HERPES) Hx Renal Disease (ESRD): No Hx Thyroid Disease: No Hx Human Immunodeficiency Virus (HIV): No (Pt is currently on truvada profolacticly because her boyfriend is pos.) Hx Hepatitis C: No (denies) Hx Depression: Yes Hx Suicide Attempt: No Hx Bipolar Disorder: No Hx Schizophrenia: No - Patient Surgical History Past Surgical History: Yes Hx Neurologic Surgery: No Hx Cataract Extraction: No Hx Cardiac Surgery: No Hx Lung Surgery: No Hx Breast Surgery: No Hx Breast Biopsy: Yes (2010) Hx Abdominal Surgery: No Hx Appendectomy: No Hx Cholecystectomy: No Hx Genitourinary Surgery: No Hx Section: No Hx Orthopedic Surgery: No Anesthesia Reaction: No - PPD History Previous Implant?: Yes Documented Results: Negative w/proof Implanted On Prior [facility] Admission?: Yes Date: 08/05/18 Results: 0mm PPD to be Administered?: No - Reproductive History Patient is a Female of Child Bearing Age (11 -55 yrs old): No Last Menstrual Period: 07/15/04 - Smoking Cessation Smoking history: Current every day smoker Have you smoked in the past 12 months: Yes Aproximately how many cigarettes per day: 12 Hx Chewing Tobacco Use: No Initiated information on smoking cessation: Yes 'Breaking Loose' booklet given: 09/25/18 - Substance & Tx. History Hx Alcohol Use: Yes Hx Substance Use: Yes Substance Use Type: Alcohol, Cocaine, Marijuana Hx Substance Use Treatment: Yes (detox, rehab ) - Substances Abused Alcohol Route: Oral Frequency: Daily Amount used: 1 PINT Age of first use: 19 Date of Last Use: 09/25/18 Crack Route: Smoking Frequency: Daily Amount used: $100 Age of first use: 28 Date of Last Use: 09/24/18 Marijuana/Hashish Route: Smoking Frequency: Daily Amount used: $10 Age of first use: 16 Date of Last Use: 09/24/18 Family Disease History - Family Disease History Family Disease History: Diabetes: Mother, Brother Admission Physical Exam [facility] - Vital Signs Vital Signs: Vital Signs - 24 hr 09/25/18 13:57 Temperature 96.8 F L Pulse Rate 70 Respiratory 18 Rate Blood Pressure 112/70 - Physical General Appearance: Yes: Appropriately Dressed, Mild Distress, Tremorous, Sweating, Anxious HEENTM: Yes: EOMI, Hearing grossly Normal, Normocephalic, KAVIN Respiratory: Yes: Lungs Clear, Normal Breath Sounds, No Respiratory Distress Neck: Yes: No masses,lesions,Nodules, Supple Breast: Yes: Breast Exam Deferred Cardiology: Yes: Regular Rhythm, Regular Rate, S1, S2, Other (Small object palpated in (L) chest area above (L) breast) Abdominal: Yes: Normal Bowel Sounds, Non Tender, Soft Genitourinary: Yes: Within Normal Limits Back: Yes: Normal Inspection Musculoskeletal: Yes: full range of Motion, Gait Steady Extremities: Yes: Normal Capillary Refill, Normal Range of Motion, Non-Tender, Tremors (Mild tremors felt) Neurological: Yes: 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 (3) Alcohol dependence with uncomplicated withdrawal Current Visit: Yes Status: Acute (4) Cannabis dependence Current Visit: Yes Status: Chronic (5) Crack cocaine use Current Visit: Yes Status: Chronic (6) Presence of cardiac device Current Visit: Yes Status: Chronic Comment: States has in internal defibrillator (7) Dermatitis Current Visit: Yes Status: Chronic Comment: Bilateral elbows Cleared for Admission [facility] - Detox or Rehab [facility] Level of Care: Medically Managed Detox Regimen/Protocol: Librium [facility] Breath Alcohol Content Breath Alcohol Content: 0.009 Urine Pregancy Test - Result Urine Test Results: Negative- NO Line Present Urine Drug Screen - Results Drug Screen Negative: No Urine Drug Screen Results: THC-Marijuana, PEDRO-Cocaine Inpatient Rehab Admission - Rehab Decision to Admit Inpatient rehab admission?: No"
[2018-09-25] MEDS ORDERED: chlordiazePOXIDE HCL 10 MG CAPSULE PO PRN (20:09)
[2018-09-25] MEDS ORDERED: MAGNESIUM CITRATE 300 ML BOTTLE PO PRN (20:12)
[2018-09-25] MEDS ORDERED: LOPERAMIDE HCL 2 MG CAPSULE PO PRN (20:12)
[2018-09-25] MEDS ORDERED: IBUPROFEN 400 MG TABLET (FP) PO PRN (20:12)
[2018-09-25] MEDS ORDERED: ALBUTEROL SO4 0.083% IH SOL 2.5 MG/3 ML VIAL.NEB. NEB PRN (20:12)
[2018-09-25] MEDS ORDERED: ACETAMINOPHEN 325 MG TABLET (FP) PO PRN (20:12)
[2018-09-25] MEDS ORDERED: MENTHOL/PHENOL 1 EACH UD MM PRN (20:12)
[2018-09-25] MEDS ORDERED: MAG HYDROX/AL HYDROX/SIMETH 30 ML UNIT-DOSE CUP PO PRN (20:12)
[2018-09-25] MEDS ORDERED: MAGNESIUM HYDROX 2400MG/30ML ORAL SUSPENSION 30 ML CUP PO PRN (20:12)
[2018-09-25] MEDS ORDERED: guaiFENesin 200 MG/10 ML 10 ML UNIT-DOSE CUPS PO PRN (20:14)
[2018-09-25] MEDS: RANITIDINE HCL 150 MG TABLET (FP) PO SCH (21:49)
[2018-09-25] MEDS: THIAMINE HCL 100 MG TABLET (FP) PO SCH (21:49)
[2018-09-25] MEDS: chlordiazePOXIDE HCL 25 MG CAPSULE PO SCH (22:15)
[2018-09-25] MEDS: MELATONIN 5 MG TABLETS PO PRN (22:16)
[2018-09-25] MEDS: TRIAMCINOLONE ACET 0.1% CREAM 15 GM TUBE TP SCH (23:25)
[2018-09-26] MEDS: chlordiazePOXIDE HCL 25 MG CAPSULE PO SCH ×3 (05:21→17:21)
[2018-09-26] MEDS: amLODIPine BESYLATE 10 MG TABLET (FP) PO SCH (10:29)
[2018-09-26] MEDS: PRENATAL VITAMINS W/ FOLIC ACID TABLET (FP) PO SCH (10:29)
[2018-09-26] MEDS: TRIAMCINOLONE ACET 0.1% CREAM 15 GM TUBE TP SCH ×2 (10:29→22:00)
[2018-09-26 10:30] LABS: HEMATOCRIT 34.9 % (32.4-45.2); HEMOGLOBIN 11.5 GM/dL (10.7-15.3); MCH 27.9 pg (25.7-33.7); MCHC 32.9 g/dl (32.0-36.0); MEAN CELL VOLUME 84.6 fl (80-96); MEAN PLT VOLUME 10.6 fl (7.5-11.1); PLATELET COUNT 241 K/MM3 (134-434); RBC 4.13 M/mm3 (3.60-5.2); WHITE BLOOD COUNT 8.3 K/mm3 (4.0-10.0)
[2018-09-26] MEDS: valACYclovir HCL 500 MG TABLET (FP) PO SCH (10:38)
[2018-09-26 11:03] LABS: ALBUMIN 3.2 g/dl (3.4-5.0); ALK PHOS 70 U/L (45-117); ANION GAP 8 MMOL/L (8-16); BILIRUBIN,TOTAL 0.5 mg/dL (0.2-1); BLOOD UREA NITROGEN 19 mg/dL (7-18); CALCIUM 8.3 mg/dL (8.5-10.1); CHLORIDE 109 mmol/L (98-107); CO2 25 mmol/L (21-32); GLUCOSE,RANDOM 140 mg/dL (74-106); POTASSIUM 4.1 mmol/L (3.5-5.1); SGOT/AST 13 U/L (15-37); SGPT/ALT 14 U/L (13-61); SODIUM 142 mmol/L (136-145); TOT PROT 5.8 g/dl (6.4-8.2)
--- NOTE | 2018-09-26 12:01 | CONSULT ---
[facility] Psychiatric Consult - Data Date of interview: 09/26/18 Admission source: [facility] Identifying data: Readmission to [facility] for this 58 y/o [place]born female self-referred for detoxification treatment (alcohol, cannabis, crack/ cocaine). Patient is single without dependents, domiciled, unemployed and supported on SSI benefits. Substance Abuse History: Confirmed by the patient in this interview. Details in current [facility] report : Smoking history: Current every day smoker. Have you smoked in the past 12 months: Yes. Aproximately how many cigarettes per day: 12. Hx Chewing Tobacco Use: No. Initiated information on smoking cessation: Yes. 'Breaking Loose' booklet given: 09/25/18. - Substance & Tx. History. Hx Alcohol Use: Yes. Hx Substance Use: Yes. Substance Use Type: Alcohol, Cocaine , Marijuana. Hx Substance Use Treatment: Yes (detox, rehab ). - Substances Abused. Alcohol. Route: Oral. Frequency: Daily. Amount used: 1 PINT. Age of first use: 19. Date of Last Use: 09/25/18. Crack. Route: Smoking. Frequency: Daily. Amount used: $100. Age of first use: 28. Date of Last Use: 09/24/18. Marijuana/Hashish. Route: Smoking. Frequency: Daily. Amount used: $10. Age of first use: 16. Date of Last Use: 09/24/18 Medical History: Remarkable for bronchial asthma, surgery for insertion of a defibrillator (6 years ago), COPD, hypertension, anal herpes, CVA (four years ago), placement of a stent, coronary artery disease (CAD) and current prophylaxis for HIV (HIV positive partner). Psychiatric History: No reported history of psychiatric hospitalizations. Patient endorses the diagnoses of MDD and Anxiety Disorder. Sees a psychiatrist at [facility] in [facility], Dr Lanza, for medication management. " I don't remember the names of the medicines. I have not taken them for more than a month ". Ms Zuñiga denies history of suicide attempts. Physical/Sexual Abuse/Trauma History: Patient declines to discuss this domain. Additional Comment: Urine Drug Screen Results: THC-Marijuana, PEDRO-Cocaine. Noted. Mental Status Exam - Mental Status Exam Alert and Oriented to: Time, Place, Person Cognitive Function: Good Patient Appearance: Well Groomed Mood: Withdrawn Affect: Appropriate, Normal Range Patient Behavior: Fatigued, Cooperative Speech Pattern: Clear, Appropriate Voice Loudness: Normal Thought Process: Goal Oriented Thought Disorder: Not Present Hallucinations: Denies Suicidal Ideation: Denies Homicidal Ideation: Denies Insight/Judgement: Poor Sleep: Poorly, Difficulty falling asleep Appetite: Poor, Weight loss Muscle strength/Tone: Normal (no complaint offered) Gait/Station: Other (not observed ; patient did not get out of bed during session) Psychiatric Findings - Problem List ([place] 1, 2,3) (1) Alcohol dependence with uncomplicated withdrawal Current Visit: Yes Status: Acute (2) Cannabis dependence Current Visit: Yes Status: Chronic (3) Cocaine dependence Current Visit: Yes Status: Chronic (4) Nicotine dependence, uncomplicated Current Visit: Yes Status: Chronic Qualifiers: Nicotine product type: cigarettes Qualified Code(s): F17.210 - Nicotine dependence, cigarettes, uncomplicated (5) Substance induced mood disorder Current Visit: Yes Status: Chronic (6) Insomnia Current Visit: Yes Status: Chronic (7) Non-compliance Current Visit: Yes Status: Chronic - Initial Treatment Plan Initial Treatment Plan: Records revisited. Psychoeducation. Sleep hygiene. Detoxification in progress. Support. Groups. Patient is encouraged to maintain her motivation for rehabilitation at completion of this protocol. Insomnia is addressed with melatonin at bedtime. Side effects/benefits discussed. Observation.
--- NOTE | 2018-09-26 12:21 | PN ---
[facility] CIWA - CIWA Score Nausea/Vomitin-No Nausea/No Vomiting Muscle Tremors: 3 Anxiety: 2 Agitation: 2 Paroxysmal Sweats: 3 Orientation: 0-Oriented Tacttile Disturbances: 0-None Auditory Disturbances: 0-None Visual Disturbances: 0-None Headache: 0-None Present CIWA-Ar Total Score: 10 S Progress Note (SOAP) Subjective: sweats shakes sleep disturbance requesting truvada Objective: 09/26/18 12:18 A & O x 3 in bed, not in acute distress Vital Signs Temperature 97.7 F 09/26/18 09:23 Pulse Rate 81 09/26/18 09:23 Respiratory Rate 18 09/26/18 09:23 Blood Pressure 106/72 09/26/18 09:23 O2 Sat by Pulse Oximetry (%) Laboratory Last Values WBC 8.3 K/mm3 (4.0-10.0) 09/26/18 07:40 RBC 4.13 M/mm3 (3.60-5.2) 09/26/18 07:40 Hgb 11.5 GM/dL (10.7-15.3) 09/26/18 07:40 Hct 34.9 % (32.4-45.2) 09/26/18 07:40 MCV 84.6 fl (80-96) 09/26/18 07:40 MCH 27.9 pg (25.7-33.7) 09/26/18 07:40 MCHC 32.9 g/dl (32.0-36.0) 09/26/18 07:40 RDW 17.0 % (11.6-15.6) H 09/26/18 07:40 Plt Count 241 K/MM3 (134-434) D 09/26/18 07:40 MPV 10.6 fl (7.5-11.1) 09/26/18 07:40 Sodium 142 mmol/L (136-145) 09/26/18 07:40 Potassium 4.1 mmol/L (3.5-5.1) 09/26/18 07:40 Chloride 109 mmol/L (98-107) H 09/26/18 07:40 Carbon Dioxide 25 mmol/L (21-32) 09/26/18 07:40 Anion Gap 8 MMOL/L (8-16) 09/26/18 07:40 BUN 19 mg/dL (7-18) H 09/26/18 07:40 Creatinine 1.0 mg/dL (0.55-1.3) 09/26/18 07:40 Creat Clearance w eGFR 56.56 (>60) 09/26/18 07:40 Random Glucose 140 mg/dL (74-106) H 09/26/18 07:40 Calcium 8.3 mg/dL (8.5-10.1) L 09/26/18 07:40 Total Bilirubin 0.5 mg/dL (0.2-1) 09/26/18 07:40 AST 13 U/L (15-37) L 09/26/18 07:40 ALT 14 U/L (13-61) 09/26/18 07:40 Alkaline Phosphatase 70 U/L (45-117) 09/26/18 07:40 Total Protein 5.8 g/dl (6.4-8.2) L 09/26/18 07:40 Albumin 3.2 g/dl (3.4-5.0) L 09/26/18 07:40 RPR Titer Nonreactive (NONREACTIVE) 09/26/18 07:40 labs noted Assessment: 09/26/18 12:21 withdrawal sx Last documented prescription for pt's Truvada was in Jul 2018, Called pt's pharmacy - [facility] pharmacy at [phone] where I verified that pt is on Truvada daily; last prescription picked up was 30 days supply on 2018 (08/26/18) prior to that and prescribed by Dr Missael Urbano of [address] [place] [address]. Plan: continue detox continue prohylaxix truvada daily Pt will be encouraged to f/u with [facility] on discharge re- HIV management
[2018-09-26] MEDS: EMTRICITABINE 200MG/TENOFOVIR 300MG PO SCH (14:34)
[2018-09-26] MEDS: THIAMINE HCL 100 MG TABLET (FP) PO SCH (22:00)
[2018-09-26] MEDS: RANITIDINE HCL 150 MG TABLET (FP) PO SCH (22:00)
[2018-09-26] MEDS: chlordiazePOXIDE 5 MG CAPSULE PO SCH (22:00)
[2018-09-26] MEDS: MELATONIN 5 MG TABLETS PO PRN (22:01)
[2018-09-27] MEDS: chlordiazePOXIDE 5 MG CAPSULE PO SCH ×3 (05:40→17:18)
[2018-09-27] MEDS: valACYclovir HCL 500 MG TABLET (FP) PO SCH (10:38)
[2018-09-27] MEDS: TRIAMCINOLONE ACET 0.1% CREAM 15 GM TUBE TP SCH ×2 (10:38→21:57)
[2018-09-27] MEDS: amLODIPine BESYLATE 10 MG TABLET (FP) PO SCH (10:38)
[2018-09-27] MEDS: EMTRICITABINE 200MG/TENOFOVIR 300MG PO SCH (10:38)
[2018-09-27] MEDS: PRENATAL VITAMINS W/ FOLIC ACID TABLET (FP) PO SCH (10:38)
--- NOTE | 2018-09-27 11:38 | PN ---
S CIWA - CIWA Score Nausea/Vomitin-No Nausea/No Vomiting Muscle Tremors: 2 Anxiety: 1-Mildly Anxious Agitation: 1-Slight > Activity Paroxysmal Sweats: 1-Minimal Palms Moist Orientation: 1-Uncertain about Date Tacttile Disturbances: 0-None Auditory Disturbances: 1-Very Mild Visual Disturbances: 0-None Headache: 1-Very Mild CIWA-Ar Total Score: 8 S Progress Note (SOAP) Subjective: tremor sweating report feeling better today that able to social with peers in day room Objective: 09/27/18 11:39 Vital Signs Temperature 98.4 F 09/27/18 09:23 Pulse Rate 72 09/27/18 09:23 Respiratory Rate 18 09/27/18 09:23 Blood Pressure 115/74 09/27/18 09:23 O2 Sat by Pulse Oximetry (%) Laboratory Last Values WBC 8.3 K/mm3 (4.0-10.0) 09/26/18 07:40 RBC 4.13 M/mm3 (3.60-5.2) 09/26/18 07:40 Hgb 11.5 GM/dL (10.7-15.3) 09/26/18 07:40 Hct 34.9 % (32.4-45.2) 09/26/18 07:40 MCV 84.6 fl (80-96) 09/26/18 07:40 MCH 27.9 pg (25.7-33.7) 09/26/18 07:40 MCHC 32.9 g/dl (32.0-36.0) 09/26/18 07:40 RDW 17.0 % (11.6-15.6) H 09/26/18 07:40 Plt Count 241 K/MM3 (134-434) D 09/26/18 07:40 MPV 10.6 fl (7.5-11.1) 09/26/18 07:40 Sodium 142 mmol/L (136-145) 09/26/18 07:40 Potassium 4.1 mmol/L (3.5-5.1) 09/26/18 07:40 Chloride 109 mmol/L (98-107) H 09/26/18 07:40 Carbon Dioxide 25 mmol/L (21-32) 09/26/18 07:40 Anion Gap 8 MMOL/L (8-16) 09/26/18 07:40 BUN 19 mg/dL (7-18) H 09/26/18 07:40 Creatinine 1.0 mg/dL (0.55-1.3) 09/26/18 07:40 Creat Clearance w eGFR 56.56 (>60) 09/26/18 07:40 Random Glucose 140 mg/dL (74-106) H 09/26/18 07:40 Calcium 8.3 mg/dL (8.5-10.1) L 09/26/18 07:40 Total Bilirubin 0.5 mg/dL (0.2-1) 09/26/18 07:40 AST 13 U/L (15-37) L 09/26/18 07:40 ALT 14 U/L (13-61) 09/26/18 07:40 Alkaline Phosphatase 70 U/L (45-117) 09/26/18 07:40 Total Protein 5.8 g/dl (6.4-8.2) L 09/26/18 07:40 Albumin 3.2 g/dl (3.4-5.0) L 09/26/18 07:40 RPR Titer Nonreactive (NONREACTIVE) 09/26/18 07:40 lab noted Assessment: 09/27/18 11:39 withdrawal sx Plan: continue detox
[2018-09-27] MEDS: MELATONIN 5 MG TABLETS PO PRN (21:57)
[2018-09-27] MEDS: RANITIDINE HCL 150 MG TABLET (FP) PO SCH (21:57)
[2018-09-27] MEDS: THIAMINE HCL 100 MG TABLET (FP) PO SCH (21:57)
[2018-09-27] MEDS: chlordiazePOXIDE HCL 10 MG CAPSULE PO SCH (22:06)
[2018-09-28] MEDS: chlordiazePOXIDE HCL 10 MG CAPSULE PO SCH ×3 (05:44→16:49)
--- NOTE | 2018-09-28 09:29 | PN ---
[facility] Progress Note (SOAP) Subjective: sleep interruption sweats shakes Objective: 09/28/18 09:29 A & O x 3 In bed, A & O x 3 No acute distress noted Vital Signs Temperature 97.3 F L 09/28/18 09:21 Pulse Rate 64 09/28/18 09:21 Respiratory Rate 18 09/28/18 09:21 Blood Pressure 108/63 09/28/18 09:21 O2 Sat by Pulse Oximetry (%) Assessment: 09/28/18 09:29 withdrawal sx Plan: Continue detox
[2018-09-28] MEDS: PRENATAL VITAMINS W/ FOLIC ACID TABLET (FP) PO SCH (10:14)
[2018-09-28] MEDS: amLODIPine BESYLATE 10 MG TABLET (FP) PO SCH (10:14)
[2018-09-28] MEDS: EMTRICITABINE 200MG/TENOFOVIR 300MG PO SCH (10:15)
[2018-09-28] MEDS: TRIAMCINOLONE ACET 0.1% CREAM 15 GM TUBE TP SCH ×2 (10:15→22:10)
--- NOTE | 2018-09-28 10:27 | PN ---
[facility] Progress Note Note: patient concerns about trouble to fall asleep history of treated with visterial visterial 25 mg x 1 hs
[2018-09-28] MEDS: valACYclovir HCL 500 MG TABLET (FP) PO SCH (12:12)
--- NOTE | 2018-09-28 14:31 | PN ---
Psychiatric Progress Note Vital Signs: Vital Signs Period Temp Pulse Resp BP Sys/Cortes Pulse Ox Last 24 Hr 96.8 F-98.2 F 61-81 16-18 107-118/63-79 Date of Session: 09/28/18 Chief Complaint:: " I feel tired ". HPI: Day 4 of detoxification. Request for a psychiatric re-consultation is prompted by patient's recent complaints of feeling anhedonic, depressed and fatigued. Otherwise, the detoxification process continues to be uneventful. No acting out behavior. Patient exhibits adherence to her medications but she seems less encline to join in groups or unit activities. ROS: Alert and fully oriented. Fatigue is reported. Mild sedation from medications (chlordiazepoxide). Meical issues are addressed. Current Medications: Active Medications Generic Name Dose Route Start Last Admin Trade Name Freq PRN Reason Stop Dose Admin Acetaminophen 650 mg 09/25/18 20:12 Tylenol - PO Q4H PRN FEVER Al Hydroxide/Mg Hydroxide 30 ml 09/25/18 20:12 Mylanta Oral Suspension - PO Q6H PRN DYSPEPSIA Albuterol Sulfate 1 amp 09/25/18 20:12 Ventolin 0.083% Nebulizer Soln - NEB Q4H PRN SHORT OF BREATH/WHEEZING Amlodipine Besylate 10 mg 09/26/18 10:00 09/28/18 10:14 Norvasc - PO 10 mg DAILY LIZETTE Administration Chlordiazepoxide HCl 10 mg 09/27/18 23:00 09/28/18 10:14 Librium - PO 09/28/18 17:01 10 mg [id number] LIZETTE Administration Chlordiazepoxide HCl 10 mg 09/25/18 20:09 09/28/18 03:27 Librium - PO 09/28/18 20:08 10 mg Q4H PRN Administration WITHDRAWAL(CONT SUBST) Chlordiazepoxide HCl 5 mg 09/28/18 23:00 Librium - PO 09/29/18 17:01 [id number] LIZETTE Emtricitabine/Tenofovir 1 tab 09/26/18 14:00 09/28/18 10:15 Truvada PO 1 tab DAILY LIZETTE Administration Eucalyptus/Menthol/Phenol/Sorbitol 1 each 09/25/18 20:12 Cepastat Lozenge - MM Q4H PRN SORE THROAT Guaifenesin 10 ml 09/25/18 20:14 Robitussin - PO Q4H PRN COUGH Hydroxyzine Pamoate 25 mg 09/28/18 22:00 Vistaril - PO 09/28/18 22:01 ONCE ONE Loperamide HCl 4 mg 09/25/18 20:12 Imodium - PO Q6H PRN DIARRHEA Magnesium Citrate 300 ml 09/25/18 20:12 Citroma - PO Q48H PRN CONSTIPATION Magnesium Hydroxide 30 ml 09/25/18 20:12 Milk Of Magnesia - PO DAILY PRN CONSTIPATION Melatonin 5 mg 09/25/18 22:00 09/27/18 21:57 Melatonin PO 5 mg HS PRN Administration INSOMNIA Multivit/Folic Acid/Iron 1 tab 09/26/18 10:00 09/28/18 10:14 Vitamins (Sjr) - PO 1 tab DAILY LIZETTE Administration Ranitidine HCl 150 mg 09/25/18 22:00 09/27/18 21:57 Zantac - PO 150 mg HS LIZETTE Administration Thiamine HCl 100 mg 09/25/18 22:00 09/27/18 21:57 Vitamin B1 - PO 100 mg HS LIZETTE Administration Triamcinolone Acetonide 1 applic 09/25/18 22:00 09/28/18 10:15 Aristocort 0.1% Cream - TP Not Given BID LIZETTE Valacyclovir HCl 1,000 mg 09/26/18 10:00 09/28/18 12:12 Valtrex - PO 1,000 mg DAILY LIZETTE Administration Medication(s) Change(s): Patient confirms, in this re-interview with advertising copy writer, that she has not taken her psychotropic medications (fluoxetine 40 mg/day + buspirone 10 mg po bid) for a period of six months (since May 2018 as per conversation with pharmacist, verbally authorized by the patient, at [facility] [phone]). Last refills were dispensed in May 2018. Ms Delio Cote is currently in withdrawal and, in view of her long standing history of non-adherence to medications, it is unlikely that she would get any benefit from resuming prozac + buspar at this time. Withdrawal syndrome is under active management. Patient is advised to re-enlist in OPD follow-up after discharge from [facility]. Current Side Effect: No Lab tests ordered: No Lab tests reviewed: Yes Provider note:: Request for re-consult is aknowledged. Chart reviewed. Patient is interviewed at bedside. Fair personal hygiene is noted. Ms Zuñiga remains withdrawn, unmotivated and isolative. Mildly sedated (likely from current medication protocol). No acting out behavior. Engages in coherent conversation on approach. Verbalizes no interest in re-activation of psychiatric aftercare follow-up. Offers little or no information about past aftercare providers. Patient complains that she " feels too tired " to engage in social interaction and participate in group sessions. She, however, denies hallucinations, delusions, suicidal/homicidal ideation, intent or plan. Stable mental status. Patient is encouraged to leave her bed during daytime, attend groups, takes naps and discuss her aftercare plan with social work team. Stable mental status. Sleep hygiene principles are revisited with the patient in this session. Total face to face time:: 35 Mental Status Exam - Mental Status Exam Alert and Oriented to: Time, Place, Person Cognitive Function: Good Patient Appearance: Well Groomed Mood: Nervous, Withdrawn Affect: Mood Congruent, Constricted Patient Behavior: Sedated (mildly sedated), Fatigued Speech Pattern: Delayed, Slurred Voice Loudness: Moderately Soft/Quiet Thought Process: Goal Oriented Thought Disorder: Not Present Hallucinations: Denies Suicidal Ideation: Denies Homicidal Ideation: Denies Insight/Judgement: Poor Sleep: Well (daytime sleepiness) Appetite: Good (as evidenced by empty foodtray noted at bedside) Gait/Station: Other (not observed ; patient did not get out of bed for the interview) Psychiatric Treatment Plan - Problem List (1) Alcohol dependence with uncomplicated withdrawal Current Visit: Yes Comment: . (2) Cannabis dependence Current Visit: Yes Comment: . (3) Cocaine dependence Current Visit: Yes Comment: . (4) Nicotine dependence, uncomplicated Current Visit: Yes Qualifiers: Nicotine product type: cigarettes Qualified Code(s): F17.210 - Nicotine dependence, cigarettes, uncomplicated Comment: . (5) Substance induced mood disorder Current Visit: Yes Comment: . (6) Insomnia Current Visit: Yes Comment: . (7) Non-compliance Current Visit: Yes Comment: .
[2018-09-28] MEDS ORDERED: hydrOXYzine PAMOATE 25 MG CAPSULE (FP) PO ONE (22:00)
[2018-09-28] MEDS: chlordiazePOXIDE 5 MG CAPSULE PO SCH (22:08)
[2018-09-28] MEDS: THIAMINE HCL 100 MG TABLET (FP) PO SCH (22:08)
[2018-09-28] MEDS: RANITIDINE HCL 150 MG TABLET (FP) PO SCH (22:08)
[2018-09-28] MEDS: MELATONIN 5 MG TABLETS PO PRN (22:09)
[2018-09-29] MEDS: chlordiazePOXIDE 5 MG CAPSULE PO SCH ×2 (06:36→10:36)
--- NOTE | 2018-09-29 09:35 | DS ---
[facility] Detox Discharge Summary Admission Date: 09/25/18 Discharge Date: 09/29/18 - History Present History: Alcohol Dependence Additional Comments: 58 years old female admitted on 09/25/18 for alcohol withdrawal stabilization completed detox regimen [facility] Physical Exam Results Vital Signs: Vital Signs Temperature 96.9 F L 09/29/18 06:47 Pulse Rate 70 09/29/18 06:47 Respiratory Rate 18 09/29/18 06:47 Blood Pressure 102/57 L 09/29/18 06:47 O2 Sat by Pulse Oximetry (%) Pertinent Admission Physical Exam Findings: alcohol withdrawal sx Laboratory Last Values WBC 8.3 K/mm3 (4.0-10.0) 09/26/18 07:40 RBC 4.13 M/mm3 (3.60-5.2) 09/26/18 07:40 Hgb 11.5 GM/dL (10.7-15.3) 09/26/18 07:40 Hct 34.9 % (32.4-45.2) 09/26/18 07:40 MCV 84.6 fl (80-96) 09/26/18 07:40 MCH 27.9 pg (25.7-33.7) 09/26/18 07:40 MCHC 32.9 g/dl (32.0-36.0) 09/26/18 07:40 RDW 17.0 % (11.6-15.6) H 09/26/18 07:40 Plt Count 241 K/MM3 (134-434) D 09/26/18 07:40 MPV 10.6 fl (7.5-11.1) 09/26/18 07:40 Sodium 142 mmol/L (136-145) 09/26/18 07:40 Potassium 4.1 mmol/L (3.5-5.1) 09/26/18 07:40 Chloride 109 mmol/L (98-107) H 09/26/18 07:40 Carbon Dioxide 25 mmol/L (21-32) 09/26/18 07:40 Anion Gap 8 MMOL/L (8-16) 09/26/18 07:40 BUN 19 mg/dL (7-18) H 09/26/18 07:40 Creatinine 1.0 mg/dL (0.55-1.3) 09/26/18 07:40 Creat Clearance w eGFR 56.56 (>60) 09/26/18 07:40 Random Glucose 140 mg/dL (74-106) H 09/26/18 07:40 Calcium 8.3 mg/dL (8.5-10.1) L 09/26/18 07:40 Total Bilirubin 0.5 mg/dL (0.2-1) 09/26/18 07:40 AST 13 U/L (15-37) L 09/26/18 07:40 ALT 14 U/L (13-61) 09/26/18 07:40 Alkaline Phosphatase 70 U/L (45-117) 09/26/18 07:40 Total Protein 5.8 g/dl (6.4-8.2) L 09/26/18 07:40 Albumin 3.2 g/dl (3.4-5.0) L 09/26/18 07:40 RPR Titer Nonreactive (NONREACTIVE) 09/26/18 07:40 lab noted - Treatment Hospital Course: Detox Protocol Followed, Detoxed Safely, Responded well, Discharged Condition Good, Rehab Referral Accepted Patient has Accepted a Rehab Referral to: [facility] - Medication Discharge Medications: Ambulatory Orders Amlodipine Besylate 10 mg PO DAILY 08/03/18 Buspirone HCl [Buspar -] 20 mg PO BID 08/03/18 Emtricitabine/Tenofovir [Truvada -] 1 tab PO DAILY 08/03/18 Loratadine 10 mg PO DAILY 08/03/18 Multivitamin [Multiple Vitamins] 1 each PO DAILY 08/03/18 Ranitidine HCl 150 mg PO HS 08/03/18 Simvastatin 40 mg PO DAILY 08/03/18 Valacyclovir HCl [Valtrex -] 1,000 mg PO DAILY 08/03/18 Vitamin B Complex 1 each PO DAILY 08/03/18 Amlodipine Besylate [Norvasc -] 10 mg PO DAILY #14 tablet 09/29/18 - Diagnosis (1) Alcohol dependence with uncomplicated withdrawal Current Visit: Yes Status: Acute (2) Substance induced mood disorder Current Visit: Yes Status: Suspected (3) HIV (human immunodeficiency virus infection) Current Visit: Yes Status: Chronic Qualifiers: HIV symptom status: asymptomatic Qualified Code(s): Z21 - Asymptomatic human immunodeficiency virus [HIV] infection status (4) Chronic GERD Current Visit: Yes Status: Chronic - AMA Did Patient Leave Against Medical Advice: No
[2018-09-29 09:42] VITALS: BP 103/69; PULSE 76; TEMP 97.3
[2018-09-29] MEDS: TRIAMCINOLONE ACET 0.1% CREAM 15 GM TUBE TP SCH (10:35)
[2018-09-29] MEDS: PRENATAL VITAMINS W/ FOLIC ACID TABLET (FP) PO SCH (10:35)
[2018-09-29] MEDS: valACYclovir HCL 500 MG TABLET (FP) PO SCH (10:35)
[2018-09-29] MEDS: amLODIPine BESYLATE 10 MG TABLET (FP) PO SCH (10:35)
[2018-09-29] MEDS: EMTRICITABINE 200MG/TENOFOVIR 300MG PO SCH (10:36)
== END 2018-09-29 11:39 | disposition other institution (70) | DRG 774 ==
LOC: YASAS 13:16 → Y3N 18:24
PROVIDERS: ADMIT Surgery; ATTEND Surgery
PROC: HZ2ZZZZ Detoxification Services for Substance Abuse Treatment (ICD-10-PCS; principal; 2018-09-25)
DX: F10.230 Alcohol dependence with withdrawal, uncomplicated (principal); F14.20 Cocaine dependence, uncomplicated; F12.20 Cannabis dependence, uncomplicated; F17.210 Nicotine dependence, cigarettes, uncomplicated; F19.24 Other psychoactive substance dependence with psychoactive substance-induced mood disorder; I10 Essential (primary) hypertension; Z21 Asymptomatic human immunodeficiency virus [HIV] infection status; K21.9 Gastro-esophageal reflux disease without esophagitis; G47.00 Insomnia, unspecified; I25.10 Atherosclerotic heart disease of native coronary artery without angina pectoris; L30.9 Dermatitis, unspecified; Z86.19 Personal history of other infectious and parasitic diseases; Z95.810 Presence of automatic (implantable) cardiac defibrillator; Z91.19 Patient's noncompliance with other medical treatment and regimen; Z86.73 Personal history of transient ischemic attack (TIA), and cerebral infarction without residual deficits; Z95.5 Presence of coronary angioplasty implant and graft
CPT/HCPCS: 36415; 80053; 85027; 86593

== ENCOUNTER 2018-09-29 11:46 | Inpatient (IN) | payer OTHER ==
--- NOTE | 2018-09-29 09:40 | HP ---
[facility] Re[facility] Assess/Revision - Admission History Admitted to Rehab from: [facility] Date of Admission to Rehab: 09/29/18 - Findings Detox History & Physical reviewed: Yes Concur with findings: Yes Comments/Additional Findings: transferred from detox to rehab admission as per protocol Inpatient Rehab Admission - Rehab Decision to Admit Inpatient rehab admission?: Yes - Initial Determination Are CD services needed?: Yes Free of communicable disease: Yes Not in need of hospitalization: Yes - Rehab Admission Criteria Previous failed treatment: Yes Poor recovery environment: Yes Comorbidities: Yes Lacks judgement: No Patient is meeting Inpatient Rehab admission criteria:: Yes
[~2018-09-29 11:46] MED LIST: ACETAMINOPHEN 325 MG TABLET (FP) PO PRN; IBUPROFEN 400 MG TABLET (FP) PO PRN; LOPERAMIDE HCL 2 MG CAPSULE PO PRN; MAGNESIUM CITRATE 300 ML BOTTLE PO PRN; MAGNESIUM HYDROX 2400MG/30ML ORAL SUSPENSION 30 ML CUP PO PRN; MENTHOL/PHENOL 1 EACH UD MM PRN; NICOTINE 14 MG/24 HOURS TOPICAL PATCH TD PRN; NICOTINE POLACRILEX 2 MG GUM BUC PRN; P-EPHED 60MG/TRIPROLIDI 2.5MG TABLET PO PRN; guaiFENesin/D-METHORPHAN HB 10 ML UNIT-DOSE CUPS PO PRN
[2018-09-29] MEDS: amLODIPine BESYLATE 10 MG TABLET (FP) PO SCH (14:03)
[2018-09-29] MEDS: PRENATAL VITAMINS W/ FOLIC ACID TABLET (FP) PO SCH (14:04)
[2018-09-29] MEDS: THIAMINE HCL 100 MG TABLET (FP) PO SCH (21:33)
[2018-09-29] MEDS: MELATONIN 5 MG TABLETS PO PRN (21:35)
[2018-09-29] MEDS: RANITIDINE HCL 150 MG TABLET (FP) PO SCH (21:35)
[2018-09-30] MEDS: amLODIPine BESYLATE 10 MG TABLET (FP) PO SCH (10:21)
[2018-09-30] MEDS: PRENATAL VITAMINS W/ FOLIC ACID TABLET (FP) PO SCH (10:21)
[2018-09-30] MEDS: EMTRICITABINE 200MG/TENOFOVIR 300MG PO SCH (10:21)
[2018-09-30] MEDS: valACYclovir HCL 500 MG TABLET (FP) PO SCH (10:22)
[2018-09-30] MEDS: hydrOXYzine PAMOATE 50 MG CAPSULE (FP) PO PRN ×2 (12:20→21:38)
[2018-09-30] MEDS: THIAMINE HCL 100 MG TABLET (FP) PO SCH (21:38)
[2018-09-30] MEDS: RANITIDINE HCL 150 MG TABLET (FP) PO SCH (21:38)
[2018-09-30] MEDS: MELATONIN 5 MG TABLETS PO PRN (21:38)
[2018-10-01] MEDS: valACYclovir HCL 500 MG TABLET (FP) PO SCH (09:58)
[2018-10-01] MEDS: amLODIPine BESYLATE 10 MG TABLET (FP) PO SCH (09:58)
[2018-10-01] MEDS: PRENATAL VITAMINS W/ FOLIC ACID TABLET (FP) PO SCH (09:58)
[2018-10-01] MEDS: EMTRICITABINE 200MG/TENOFOVIR 300MG PO SCH (10:46)
[2018-10-01] MEDS: MELATONIN 5 MG TABLETS PO PRN (21:21)
[2018-10-01] MEDS: THIAMINE HCL 100 MG TABLET (FP) PO SCH (21:21)
[2018-10-01] MEDS: RANITIDINE HCL 150 MG TABLET (FP) PO SCH (21:21)
[2018-10-01] MEDS: hydrOXYzine PAMOATE 50 MG CAPSULE (FP) PO PRN (21:21)
[2018-10-02] MEDS: MAG HYDROX/AL HYDROX/SIMETH 30 ML UNIT-DOSE CUP PO PRN (06:09)
[2018-10-02] MEDS ORDERED: PT OWN MED DRAWER 7, Y5N ONE ×2 (08:35→11:59)
[2018-10-02] MEDS: valACYclovir HCL 500 MG TABLET (FP) PO SCH (09:59)
[2018-10-02] MEDS: EMTRICITABINE 200MG/TENOFOVIR 300MG PO SCH (09:59)
[2018-10-02] MEDS: amLODIPine BESYLATE 10 MG TABLET (FP) PO SCH (09:59)
[2018-10-02] MEDS: PRENATAL VITAMINS W/ FOLIC ACID TABLET (FP) PO SCH (09:59)
[2018-10-02] MEDS: RANITIDINE HCL 150 MG TABLET (FP) PO SCH (21:59)
[2018-10-02] MEDS: THIAMINE HCL 100 MG TABLET (FP) PO SCH (21:59)
[2018-10-02] MEDS: hydrOXYzine PAMOATE 50 MG CAPSULE (FP) PO PRN (22:00)
[2018-10-02] MEDS: MELATONIN 5 MG TABLETS PO PRN (22:00)
[2018-10-03] MEDS ORDERED: PT OWN MED DRAWER 7, Y5N ONE (08:46)
[2018-10-03] MEDS: valACYclovir HCL 500 MG TABLET (FP) PO SCH (10:38)
[2018-10-03] MEDS: EMTRICITABINE 200MG/TENOFOVIR 300MG PO SCH (10:38)
[2018-10-03] MEDS: amLODIPine BESYLATE 10 MG TABLET (FP) PO SCH (10:38)
[2018-10-03] MEDS: PRENATAL VITAMINS W/ FOLIC ACID TABLET (FP) PO SCH (10:38)
[2018-10-03] MEDS: MELATONIN 5 MG TABLETS PO PRN (21:20)
[2018-10-03] MEDS: THIAMINE HCL 100 MG TABLET (FP) PO SCH (21:20)
[2018-10-03] MEDS: RANITIDINE HCL 150 MG TABLET (FP) PO SCH (21:20)
[2018-10-03] MEDS: hydrOXYzine PAMOATE 50 MG CAPSULE (FP) PO PRN (21:21)
[2018-10-04] MEDS: MAG HYDROX/AL HYDROX/SIMETH 30 ML UNIT-DOSE CUP PO PRN (06:32)
[2018-10-04] MEDS ORDERED: PT OWN MED DRAWER 7, Y5N ONE (09:05)
[2018-10-04] MEDS: amLODIPine BESYLATE 10 MG TABLET (FP) PO SCH (10:32)
[2018-10-04] MEDS: EMTRICITABINE 200MG/TENOFOVIR 300MG PO SCH (10:32)
[2018-10-04] MEDS: PRENATAL VITAMINS W/ FOLIC ACID TABLET (FP) PO SCH (10:32)
[2018-10-04] MEDS: valACYclovir HCL 500 MG TABLET (FP) PO SCH (10:32)
[2018-10-04] MEDS: hydrOXYzine PAMOATE 50 MG CAPSULE (FP) PO PRN ×3 (10:33→21:33)
[2018-10-04] MEDS ORDERED: ALBUTEROL SO4 2.5/IPRATROPIUM 0.5 INH SOL 3 ML VIAL.NEB. NEB PRN (17:01)
[2018-10-04] MEDS ORDERED: ALBUTEROL SO4 8 GM HFA INHALER IH PRN (17:01)
[2018-10-04] MEDS: THIAMINE HCL 100 MG TABLET (FP) PO SCH (21:32)
[2018-10-04] MEDS: RANITIDINE HCL 150 MG TABLET (FP) PO SCH (21:33)
[2018-10-04] MEDS: MELATONIN 5 MG TABLETS PO PRN (21:33)
[2018-10-05] MEDS: MAG HYDROX/AL HYDROX/SIMETH 30 ML UNIT-DOSE CUP PO PRN ×2 (06:56→16:42)
[2018-10-05] MEDS ORDERED: PT OWN MED DRAWER 7, Y5N ONE (08:33)
[2018-10-05] MEDS: amLODIPine BESYLATE 10 MG TABLET (FP) PO SCH (09:13)
[2018-10-05] MEDS: PRENATAL VITAMINS W/ FOLIC ACID TABLET (FP) PO SCH (09:13)
[2018-10-05] MEDS: valACYclovir HCL 500 MG TABLET (FP) PO SCH (09:14)
[2018-10-05] MEDS: EMTRICITABINE 200MG/TENOFOVIR 300MG PO SCH (09:14)
[2018-10-05] MEDS: hydrOXYzine PAMOATE 50 MG CAPSULE (FP) PO PRN (21:15)
[2018-10-05] MEDS: MELATONIN 5 MG TABLETS PO PRN (21:15)
[2018-10-05] MEDS: RANITIDINE HCL 150 MG TABLET (FP) PO SCH (21:15)
[2018-10-05] MEDS: THIAMINE HCL 100 MG TABLET (FP) PO SCH (21:15)
[2018-10-06] MEDS ORDERED: PT OWN MED DRAWER 7, Y5N ONE (08:39)
[2018-10-06] MEDS: valACYclovir HCL 500 MG TABLET (FP) PO SCH (09:42)
[2018-10-06] MEDS: PRENATAL VITAMINS W/ FOLIC ACID TABLET (FP) PO SCH (09:42)
[2018-10-06] MEDS: amLODIPine BESYLATE 10 MG TABLET (FP) PO SCH (09:42)
[2018-10-06] MEDS: hydrOXYzine PAMOATE 50 MG CAPSULE (FP) PO PRN ×3 (09:43→21:09)
[2018-10-06] MEDS: EMTRICITABINE 200MG/TENOFOVIR 300MG PO SCH (11:19)
--- NOTE | 2018-10-06 13:26 | PN ---
[facility] Progress Note Note: PT WANTED TO TALK ABOUT WHY HER BLOOD SUGAR IS SLIGHTLY INCREASED. DENIES HX OF DIABETES. REPORTS SHE HAS PRIMARY CARE PROVIDER DR. NADIA HOLDER AT [facility] ON [address], [place] PT IS CURRENTLY ON BGM. ALERT O X 3. Vital Signs (72 hours) 10/04/18 10/04/18 10/04/18 00:30 03:30 07:20 Temperature 97.6 F Pulse Rate 75 Respiratory 18 18 18 Rate Blood Pressure 103/66 10/05/18 10/05/18 10/05/18 00:30 07:00 10:00 Temperature 97.2 F L Pulse Rate 69 92 H Respiratory 18 18 Rate Blood Pressure 110/75 117/67 10/06/18 10/06/18 10/06/18 00:30 03:27 06:35 Temperature 97.3 F L Pulse Rate 87 Respiratory 18 18 18 Rate Blood Pressure 93/61 10/06/18 10:00 Temperature Pulse Rate 91 H Respiratory 18 Rate Blood Pressure 121/78 NAD PLAN:SURI/NCS DIET CRYSTAL LIGHT BEVERAGE WITH MEALS PT WILL TAKE COPIES OF LAB RESULT TO HER PMD UPON DISCHARGE FOR MEDICAL MANAGEMENT.
[2018-10-06] MEDS: MAG HYDROX/AL HYDROX/SIMETH 30 ML UNIT-DOSE CUP PO PRN (16:50)
[2018-10-06] MEDS: RANITIDINE HCL 150 MG TABLET (FP) PO SCH (21:09)
[2018-10-06] MEDS: THIAMINE HCL 100 MG TABLET (FP) PO SCH (21:09)
[2018-10-06] MEDS: MELATONIN 5 MG TABLETS PO PRN (21:09)
[2018-10-07] MEDS: hydrOXYzine PAMOATE 50 MG CAPSULE (FP) PO PRN (06:23)
[2018-10-07 07:03] VITALS: TEMP 97.8
[2018-10-07] MEDS ORDERED: PT OWN MED DRAWER 7, Y5N ONE (08:19)
[2018-10-07 09:03] VITALS: BP 133/72; PULSE 88
[2018-10-07] MEDS: EMTRICITABINE 200MG/TENOFOVIR 300MG PO SCH (09:07)
[2018-10-07] MEDS: amLODIPine BESYLATE 10 MG TABLET (FP) PO SCH (09:08)
[2018-10-07] MEDS: valACYclovir HCL 500 MG TABLET (FP) PO SCH (09:08)
[2018-10-07] MEDS: PRENATAL VITAMINS W/ FOLIC ACID TABLET (FP) PO SCH (09:08)
--- NOTE | 2018-10-07 09:17 | PN ---
[facility] Progress Note (SOAP) Subjective: Client is requesting discharge for personal reasons. Objective: 10/07/18 09:14 Stable, Vital Signs (72 hours) 10/05/18 10/05/18 10/05/18 00:30 07:00 10:00 Temperature 97.2 F L Pulse Rate 69 92 H Respiratory 18 18 Rate Blood Pressure 110/75 117/67 10/06/18 10/06/18 10/06/18 00:30 03:27 06:35 Temperature 97.3 F L Pulse Rate 87 Respiratory 18 18 18 Rate Blood Pressure 93/61 10/06/18 10/07/18 10/07/18 10:00 00:30 03:30 Temperature Pulse Rate 91 H Respiratory 18 18 18 Rate Blood Pressure 121/78 10/07/18 10/07/18 07:03 09:03 Temperature 97.8 F Pulse Rate 69 88 Respiratory 18 Rate Blood Pressure 100/60 133/72 Assessment: 10/07/18 09:15 Client requesting discharge before treatment is completed. Plan: Client plans to go to [facility] for after care. PCP is Dr. Pili Whiting, [address] [place] [address]. Encouraged to make appointment for follow up ARNALDO>
== END 2018-10-07 09:36 | disposition home or self-care (01) | DRG 772 ==
LOC: YASAS 11:46 → Y3E 11:47
PROVIDERS: ADMIT Neuromusculoskeletal Medicine & OMM; ATTEND Neuromusculoskeletal Medicine & OMM
PROC: HZ42ZZZ Group Counseling for Substance Abuse Treatment, Cognitive-Behavioral (ICD-10-PCS; principal; 2018-09-29)
DX: F10.20 Alcohol dependence, uncomplicated (principal); F14.20 Cocaine dependence, uncomplicated; F12.20 Cannabis dependence, uncomplicated; F17.210 Nicotine dependence, cigarettes, uncomplicated; I10 Essential (primary) hypertension; J44.9 Chronic obstructive pulmonary disease, unspecified; L30.9 Dermatitis, unspecified; Z95.810 Presence of automatic (implantable) cardiac defibrillator; Z87.42 Personal history of other diseases of the female genital tract
CPT/HCPCS: 82962; 83036; 94640

== ENCOUNTER 2018-11-01 12:33 | Inpatient (IN) | payer OTHER ==
[2018-11-01 13:22] VITALS: BMI 21.7
--- NOTE | 2018-11-01 13:42 | HP ---
CIWA Score Nausea/Vomitin Muscle Tremors: 2 Anxiety: 2 Agitation: 2 Paroxysmal Sweats: 2 Orientation: 0-Oriented Tacttile Disturbances: 1-Very Mild Itch/Numbness Auditory Disturbances: 1-Very Mild Visual Disturbances: 0-None Headache: 2-Mild CIWA-Ar Total Score: 14 - Admission Criteria OASAS Guidelines: Admission for Medically Managed Detox: Requires at least one of the followin. CIWA greater than 12 2. Seizures within the past 24 hours 3. Delirium tremens within the past 24 hours 4. Hallucinations within the past 24 hours 5. Acute intervention needed for co occurring medical disorder 6. Acute intervention needed for co occurring psychiatric disorder 7. Severe withdrawal that cannot be handled at a lower level of care (continued vomiting, continued diarrhea, abnormal vital signs) requiring intravenous medication and/or fluids 8. 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 Loss EENT: reports: Tearing, Nose Congestion Respiratory: reports: Other (copd) Cardiac: reports: Palpitations GI: reports: Nausea, Vomiting, Abdominal cramping : reports: No Symptoms Reported Musculoskeletal: reports: Back Pain, Muscle Pain Integumentary: reports: Dryness Neuro: reports: Headache, Tremors Endocrine: reports: No Symptoms Reported, Other (type 2 dm) Hematology: reports: No Symptoms Reported Psychiatric: reports: No Sypmtoms Reported, Judgement Intact, Mood/Affect Appropiate, Orientated x3, Anxious, Depressed Other Systems: Reviewed and Negative Patient History - Patient Medical History Hx Anemia: No Hx Asthma: Yes (on albuterol inhaler) Hx Chronic Obstructive Pulmonary Disease (COPD): Yes (on albuterol inhaler) Hx Cardiac Disorders: Yes (implanted defibrillator [facility] 1 year ago) Hx Congestive Heart Failure: No Hx Hypertension: Yes (on med) Hx Hypercholesterolemia: No Hx Pacemaker: No HX Cerebrovascular Accident: No Hx Seizures: Yes (x1 in ) Hx Dementia: No Hx Diabetes: No Hx Gastrointestinal Disorders: Yes Hx Liver Disease: No Hx Genitourinary Disorders: No Hx Sexually Transmitted Disorders: Yes (genital herpes) Hx Renal Disease (ESRD): No Hx Thyroid Disease: No Hx Human Immunodeficiency Virus (HIV): No (Pt is currently on truvada profolacticly because her boyfriend is pos.) Hx Hepatitis C: No (denies) Hx Depression: Yes (anxiety,depression) Hx Suicide Attempt: No Hx Bipolar Disorder: No Hx Schizophrenia: No Other Medical History: no suicidal,no homicidal,coughing with greenish mucous for 3 days - Patient Surgical History Past Surgical History: Yes Hx Neurologic Surgery: No Hx Cataract Extraction: No Hx Cardiac Surgery: Yes (implanted defibrillator [address] [facility]) Hx Lung Surgery: No Hx Breast Surgery: No Hx Breast Biopsy: Yes (2010 left) Hx Abdominal Surgery: No Hx Appendectomy: No Hx Cholecystectomy: No Hx Genitourinary Surgery: No Hx Section: No Hx Orthopedic Surgery: No Anesthesia Reaction: No - PPD History Previous Implant?: Yes Documented Results: Negative w/proof Implanted On Prior [facility] Admission?: Yes Date: 08/05/18 Results: 0mm PPD to be Administered?: No - Reproductive History Patient is a Female of Child Bearing Age (11 -55 yrs old): No Last Menstrual Period: 07/15/04 Patient : No - Smoking Cessation Smoking history: Current every day smoker Have you smoked in the past 12 months: Yes Aproximately how many cigarettes per day: 20 Hx Chewing Tobacco Use: No Initiated information on smoking cessation: Yes 'Breaking Loose' booklet given: 11/01/18 - Substance & Tx. History Hx Alcohol Use: Yes Hx Substance Use: Yes Substance Use Type: Alcohol, Cocaine, Marijuana Hx Substance Use Treatment: Yes ([facility] to 09/29/18,REHAB 09/29/18 to 10/07) - Substances Abused Alcohol Route: Oral Frequency: Daily Amount used: 1 pint of rum Age of first use: 17 Date of Last Use: 11/01/18 Cocaine Route: Smoking Frequency: Daily Amount used: 200$ Age of first use: 23 Date of Last Use: 11/01/18 Marijuana/Hashish Route: Smoking Frequency: 1-2 times per week Amount used: 10$ Age of first use: 16 Date of Last Use: 11/01/18 Family Disease History - Family Disease History Family History: Denies Family Disease History: Diabetes: Mother, Brother Admission Physical Exam S - Vital Signs Vital Signs: Vital Signs - 24 hr 11/01/18 13:16 Temperature 98.6 F Pulse Rate 92 H Respiratory 18 Rate Blood Pressure 110/49 L - Physical General Appearance: Yes: Moderate Distress, Tremorous, Irritable, Sweating, Anxious HEENTM: Yes: Normal ENT Inspection, KAVIN, Pharynx Normal Respiratory: Yes: Lungs Clear, Normal Breath Sounds, No Respiratory Distress Neck: Yes: Within Normal Limits, Supple, Trachea in good position Breast: Yes: Breast Exam Deferred Cardiology: Yes: Within Normal Limits, Regular Rhythm, Regular Rate, S1, S2, Other (history of implanted defibrillator left) Abdominal: Yes: Within Normal Limits, Normal Bowel Sounds, Non Tender, Soft Genitourinary: Yes: Within Normal Limits, Other (history of genital herpes) Back: Yes: Muscle Spasm Musculoskeletal: Yes: Back pain, Muscle Pain Extremities: Yes: Tremors 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 (2) At risk for sexually transmitted disease due to partner with HIV Current Visit: No Status: Chronic Comment: pt is currently on antiviral medication for a partner who is +HIV (3) CAD (coronary artery disease) Current Visit: No Status: Chronic (4) Cocaine dependence Current Visit: No Status: Chronic Comment: . (5) Herpes Current Visit: No Status: Chronic Comment: States in rectal area. (6) Insomnia Current Visit: No Status: Chronic Comment: . (7) Nicotine dependence, uncomplicated Current Visit: No Status: Chronic Qualifiers: Nicotine product type: cigarettes Qualified Code(s): F17.210 - Nicotine dependence, cigarettes, uncomplicated Comment: . (8) Presence of cardiac device Current Visit: No Status: Chronic Comment: States has in internal defibrillator (9) Asthma Current Visit: Yes Status: Acute (10) COPD (chronic obstructive pulmonary disease) Current Visit: Yes Status: Acute (11) History of implantable cardioverter-defibrillator (ICD) placement Current Visit: Yes Status: Acute Cleared for Admission S - Detox or Rehab [facility] Level of Care: Medically Managed Detox Regimen/Protocol: Librium S Breath Alcohol Content Breath Alcohol Content: 0.001 Urine Pregancy Test - Result Urine Test Results: Negative - NO line present Urine Drug Screen - Results Urine Drug Screen Results: THC-Marijuana, PEDRO-Cocaine, BZO-Benzodiazepines Drug Screen Negative: No Inpatient Rehab Admission - Rehab Decision to Admit Inpatient rehab admission?: No
[2018-11-01] MEDS ORDERED: chlordiazePOXIDE HCL 25 MG CAPSULE PO PRN (14:02)
[2018-11-01] MEDS ORDERED: BISMUTH SUBSALICYLATE 524 MG/30 ML UD PO PRN (14:02)
[2018-11-01] MEDS ORDERED: MAGNESIUM HYDROX 2400MG/30ML ORAL SUSPENSION 30 ML CUP PO PRN (14:02)
[2018-11-01] MEDS ORDERED: IBUPROFEN 400 MG TABLET (FP) PO PRN (14:02)
[2018-11-01] MEDS ORDERED: MAGNESIUM CITRATE 300 ML BOTTLE PO PRN (14:02)
[2018-11-01] MEDS ORDERED: MENTHOL/PHENOL 1 EACH UD MM PRN (14:02)
[2018-11-01] MEDS ORDERED: METHOCARBAMOL 500 MG TABLET PO PRN (14:02)
[2018-11-01] MEDS ORDERED: hydrOXYzine PAMOATE 25 MG CAPSULE (FP) PO PRN (14:02)
[2018-11-01] MEDS ORDERED: ACETAMINOPHEN 325 MG TABLET (FP) PO PRN ×2 (14:02)
[2018-11-01] MEDS ORDERED: MAG HYDROX/AL HYDROX/SIMETH 30 ML UNIT-DOSE CUP PO PRN (14:02)
[2018-11-01] MEDS ORDERED: AZITHROMYCIN 250 MG TABLET PO ONE (15:19)
[2018-11-01] MEDS: chlordiazePOXIDE HCL 25 MG CAPSULE PO SCH ×2 (17:01→22:22)
[2018-11-01] MEDS ORDERED: ALBUTEROL SO4 8 GM HFA INHALER IH PRN (17:05)
[2018-11-01] MEDS: ALBUTEROL SO4 2.5/IPRATROPIUM 0.5 INH SOL 3 ML VIAL.NEB. NEB PRN (17:33)
[2018-11-01] MEDS ORDERED: predniSONE 20 MG TABLET (UD) PO ONE (19:00)
--- NOTE | 2018-11-01 19:16 | PN ---
[facility] Progress Note Note: patient has history of asthma,copd,exacerbation on albuterol inhaler on duoneb nebulizer will start with prednisone 40 mgs po now then taper off prednisone close monitoring
[2018-11-01] MEDS ORDERED: PATIENT'S OWN MEDICATION (NON-FORMULARY) (Ranitidine Hcl [Ranitidine Hcl] 150 MG) PO SCH (22:00)
[2018-11-01] MEDS: RANITIDINE HCL 150 MG TABLET (FP) PO SCH (22:21)
[2018-11-01] MEDS: THIAMINE HCL 100 MG TABLET (FP) PO SCH (22:21)
[2018-11-01] MEDS: ATORVASTATIN CA 20 MG TABLET (FP) PO SCH (22:21)
[2018-11-01] MEDS: guaiFENesin 200 MG/10 ML 10 ML UNIT-DOSE CUPS PO PRN (22:37)
[2018-11-02] MEDS: chlordiazePOXIDE HCL 25 MG CAPSULE PO SCH ×4 (05:27→22:30)
[2018-11-02] MEDS: ALBUTEROL SO4 2.5/IPRATROPIUM 0.5 INH SOL 3 ML VIAL.NEB. NEB PRN (08:50)
[2018-11-02] MEDS ORDERED: predniSONE 20 MG TABLET (UD) PO ONE (10:00)
[2018-11-02] MEDS ORDERED: predniSONE 10 MG TABLET (UD) PO ONE (10:00)
[2018-11-02] MEDS ORDERED: PATIENT'S OWN MEDICATION (NON-FORMULARY) (Simvastatin [Simvastatin] 40 MG) PO SCH (10:00)
[2018-11-02 10:02] LABS: HEMOGLOBIN 12.2 GM/dL (10.7-15.3); MCH 26.3 pg (25.7-33.7); MCHC 31.3 g/dl (32.0-36.0); MEAN CELL VOLUME 84.1 fl (80-96); PLATELET COUNT 275 K/MM3 (134-434); RBC 4.64 M/mm3 (3.60-5.2); WHITE BLOOD COUNT 8.3 K/mm3 (4.0-10.0)
[2018-11-02 10:16] LABS: ALBUMIN 3.4 g/dl (3.4-5.0); ALK PHOS 83 U/L (45-117); ANION GAP 8 MMOL/L (8-16); BILIRUBIN,TOTAL 0.2 mg/dL (0.2-1); BLOOD UREA NITROGEN 19 mg/dL (7-18); CALCIUM 8.6 mg/dL (8.5-10.1); CHLORIDE 109 mmol/L (98-107); CO2 26 mmol/L (21-32); CREATININE 0.7 mg/dL (0.55-1.3); GLUCOSE,RANDOM 151 mg/dL (74-106); POTASSIUM 4.1 mmol/L (3.5-5.1); SGOT/AST 10 U/L (15-37); SGPT/ALT 14 U/L (13-61); SODIUM 142 mmol/L (136-145); TOT PROT 6.6 g/dl (6.4-8.2)
[2018-11-02] MEDS: amLODIPine BESYLATE 10 MG TABLET (FP) PO SCH (11:00)
[2018-11-02] MEDS: PRENATAL VITAMINS W/ FOLIC ACID TABLET (FP) PO SCH (11:00)
[2018-11-02] MEDS: valACYclovir HCL 500 MG TABLET (FP) PO SCH (11:00)
[2018-11-02] MEDS: LORATADINE 10 MG TABLET PO SCH (11:00)
[2018-11-02] MEDS: AZITHROMYCIN 250 MG TABLET PO SCH (11:00)
[2018-11-02 12:30] LABS: PH,URINE 7.5 (5.0-8.0); URINE APPEARANCE CLEAR; URINE BILIRUBIN NEGATIVE (NEGATIVE); URINE COLOR YELLOW; URINE GLUCOSE (UA) NEGATIVE (NEGATIVE); URINE KETONE NEGATIVE (NEGATIVE); URINE LEUK ESTERASE NEGATIVE (NEGATIVE); URINE NITRITE NEGATIVE (NEGATIVE); URINE PROTEIN NEGATIVE (NEGATIVE); URINE UROBILINOGEN 0.2 mg/dL (0.2-1.0)
--- NOTE | 2018-11-02 14:18 | PN ---
[facility] CIWA - CIWA Score Nausea/Vomitin-No Nausea/No Vomiting Muscle Tremors: 3 Anxiety: 4-Mod. Anxious/Guarded Agitation: 3 Paroxysmal Sweats: 3 Orientation: 0-Oriented Tacttile Disturbances: 1-Very Mild Itch/Numbness Auditory Disturbances: 0-None Visual Disturbances: 2-Mild Sensitivity Headache: 0-None Present CIWA-Ar Total Score: 16 [facility] Progress Note (SOAP) Subjective: Sweating, Anxious, Tremors. Objective: PATIENT A & O X 3, OBSERVED AMBULATING ON UNIT. IN NO ACUTE DISTRESS. 11/02/18 14:16 Vital Signs Temperature 97.4 F L 11/02/18 13:07 Pulse Rate 77 11/02/18 13:07 Respiratory Rate 18 11/02/18 13:07 Blood Pressure 155/94 11/02/18 13:07 O2 Sat by Pulse Oximetry (%) Laboratory Tests 11/02/18 11/02/18 11/02/18 07:00 07:00 07:00 WBC 8.3 RBC 4.64 Hgb 12.2 Hct 39.0 MCV 84.1 MCH 26.3 MCHC 31.3 L RDW 17.0 H Plt Count 275 MPV 10.0 Sodium 142 Potassium 4.1 Chloride 109 H Carbon Dioxide 26 Anion Gap 8 BUN 19 H Creatinine 0.7 Creat Clearance w eGFR 85.36 Random Glucose 151 H Calcium 8.6 Total Bilirubin 0.2 AST 10 L ALT 14 Alkaline Phosphatase 83 Total Protein 6.6 Albumin 3.4 Urine Color Urine Appearance Urine pH Ur Specific [place] Urine Protein Urine Glucose (UA) Urine Ketones Urine Blood Urine Nitrite Urine Bilirubin Urine Urobilinogen Ur Leukocyte Esterase RPR Titer Nonreactive 11/02/18 08:40 WBC RBC Hgb Hct MCV MCH MCHC RDW Plt Count MPV Sodium Potassium Chloride Carbon Dioxide Anion Gap BUN Creatinine Creat Clearance w eGFR Random Glucose Calcium Total Bilirubin AST ALT Alkaline Phosphatase Total Protein Albumin Urine Color Yellow Urine Appearance Clear Urine pH 7.5 D Ur Specific [place] 1.018 Urine Protein Negative Urine Glucose (UA) Negative Urine Ketones Negative Urine Blood Negative Urine Nitrite Negative Urine Bilirubin Negative Urine Urobilinogen 0.2 Ur Leukocyte Esterase Negative RPR Titer LABS NOTED. 11/02/18 14:17 Assessment: 11/02/18 14:17 WITHDRAWAL SYMPTOMS. HYPERGLYCEMIA. Plan: CONTINUE DETOX. INCREASE DAILY PO FLUID INTAKE. BGM ACBK FOR ELEVATED ADMISSION RANDOM GLUCOSE LEVEL.
[2018-11-02] MEDS: EMTRICITABINE 200MG/TENOFOVIR 300MG PO SCH (15:28)
[2018-11-02] MEDS: ATORVASTATIN CA 20 MG TABLET (FP) PO SCH (22:30)
[2018-11-02] MEDS: THIAMINE HCL 100 MG TABLET (FP) PO SCH (22:30)
[2018-11-02] MEDS: RANITIDINE HCL 150 MG TABLET (FP) PO SCH (22:31)
[2018-11-02] MEDS: MELATONIN 5 MG TABLETS PO PRN (22:32)
[2018-11-03] MEDS: chlordiazePOXIDE HCL 25 MG CAPSULE PO SCH ×2 (05:20→10:09)
[2018-11-03] MEDS: ALBUTEROL SO4 2.5/IPRATROPIUM 0.5 INH SOL 3 ML VIAL.NEB. NEB PRN ×2 (08:45→22:37)
[2018-11-03] MEDS ORDERED: predniSONE 20 MG TABLET (UD) PO ONE (10:00)
[2018-11-03] MEDS: LORATADINE 10 MG TABLET PO SCH (10:08)
[2018-11-03] MEDS: valACYclovir HCL 500 MG TABLET (FP) PO SCH (10:08)
[2018-11-03] MEDS: amLODIPine BESYLATE 10 MG TABLET (FP) PO SCH (10:08)
[2018-11-03] MEDS: PRENATAL VITAMINS W/ FOLIC ACID TABLET (FP) PO SCH (10:08)
[2018-11-03] MEDS: AZITHROMYCIN 250 MG TABLET PO SCH (10:08)
[2018-11-03] MEDS: EMTRICITABINE 200MG/TENOFOVIR 300MG PO SCH (10:08)
--- NOTE | 2018-11-03 15:21 | PN ---
[facility] CIWA - CIWA Score Nausea/Vomitin-No Nausea/No Vomiting Muscle Tremors: None Anxiety: 3 Agitation: 0-Normal Activity Paroxysmal Sweats: 3 Orientation: 0-Oriented Tacttile Disturbances: 2-Mild Itch/Numbness/Burn Auditory Disturbances: 0-None Visual Disturbances: 2-Mild Sensitivity Headache: 0-None Present CIWA-Ar Total Score: 10 [facility] Progress Note (SOAP) Subjective: Sweating, Anxious, Fatigue. Patient reporting Continuing Cough and Difficulty Breathing. Objective: PATIENT A & O X 3, OBSERVED AMBULATING ON UNIT. IN NO ACUTE DISTRESS. LUNG SOUNDS AUSCULTATED CLEAR AND EQUAL BILATERALLY. 11/03/18 15:22 Vital Signs Temperature 96.7 F L 11/03/18 13:31 Pulse Rate 90 11/03/18 13:31 Respiratory Rate 20 11/03/18 13:31 Blood Pressure 129/59 L 11/03/18 13:31 O2 Sat by Pulse Oximetry (%) Laboratory Tests 11/02/18 11/02/18 11/02/18 07:00 07:00 07:00 WBC 8.3 RBC 4.64 Hgb 12.2 Hct 39.0 MCV 84.1 MCH 26.3 MCHC 31.3 L RDW 17.0 H Plt Count 275 MPV 10.0 Sodium 142 Potassium 4.1 Chloride 109 H Carbon Dioxide 26 Anion Gap 8 BUN 19 H Creatinine 0.7 Creat Clearance w eGFR 85.36 POC Glucometer Random Glucose 151 H Calcium 8.6 Total Bilirubin 0.2 AST 10 L ALT 14 Alkaline Phosphatase 83 Total Protein 6.6 Albumin 3.4 Urine Color Urine Appearance Urine pH Ur Specific [place] Urine Protein Urine Glucose (UA) Urine Ketones Urine Blood Urine Nitrite Urine Bilirubin Urine Urobilinogen Ur Leukocyte Esterase RPR Titer Nonreactive 11/02/18 11/03/18 08:40 05:19 WBC RBC Hgb Hct MCV MCH MCHC RDW Plt Count MPV Sodium Potassium Chloride Carbon Dioxide Anion Gap BUN Creatinine Creat Clearance w eGFR POC Glucometer 131 Random Glucose Calcium Total Bilirubin AST ALT Alkaline Phosphatase Total Protein Albumin Urine Color Yellow Urine Appearance Clear Urine pH 7.5 D Ur Specific [place] 1.018 Urine Protein Negative Urine Glucose (UA) Negative Urine Ketones Negative Urine Blood Negative Urine Nitrite Negative Urine Bilirubin Negative Urine Urobilinogen 0.2 Ur Leukocyte Esterase Negative RPR Titer LABS NOTED. 11/03/18 15:26 Assessment: 11/03/18 15:23 WITHDRAWAL SYMPTOMS. Plan: CONTINUE DETOX. CONTINUE PREDNISONE PO AND AZITHROMYCIN PO FOR ACUTE ASTHMA EXACERBATION AND FOR POSSIBLE URI. PRN DUONEB FOR SOB / WHEEZING.
[2018-11-03] MEDS ORDERED: chlordiazePOXIDE HCL 10 MG CAPSULE PO PRN (17:00)
[2018-11-03] MEDS: chlordiazePOXIDE HCL 10 MG CAPSULE PO SCH ×2 (17:33→22:08)
[2018-11-03] MEDS: ATORVASTATIN CA 20 MG TABLET (FP) PO SCH (22:08)
[2018-11-03] MEDS: THIAMINE HCL 100 MG TABLET (FP) PO SCH (22:08)
[2018-11-03] MEDS: MELATONIN 5 MG TABLETS PO PRN (22:08)
[2018-11-03] MEDS: RANITIDINE HCL 150 MG TABLET (FP) PO SCH (22:08)
[2018-11-03] MEDS: guaiFENesin 200 MG/10 ML 10 ML UNIT-DOSE CUPS PO PRN (22:14)
[2018-11-04] MEDS: chlordiazePOXIDE HCL 10 MG CAPSULE PO SCH ×3 (05:04→17:17)
[2018-11-04] MEDS ORDERED: predniSONE 10 MG TABLET (UD) PO ONE (10:00)
[2018-11-04] MEDS: valACYclovir HCL 500 MG TABLET (FP) PO SCH (10:40)
[2018-11-04] MEDS: amLODIPine BESYLATE 10 MG TABLET (FP) PO SCH (10:40)
[2018-11-04] MEDS: PRENATAL VITAMINS W/ FOLIC ACID TABLET (FP) PO SCH (10:40)
[2018-11-04] MEDS: LORATADINE 10 MG TABLET PO SCH (10:40)
[2018-11-04] MEDS: EMTRICITABINE 200MG/TENOFOVIR 300MG PO SCH (10:41)
[2018-11-04] MEDS: AZITHROMYCIN 250 MG TABLET PO SCH (10:42)
--- NOTE | 2018-11-04 14:31 | PN ---
[facility] Progress Note (SOAP) Subjective: pt without complaints today, tapering off prednisone for asthma exacerbation O: Vital Signs - 24 hr 11/03/18 11/03/18 11/04/18 18:05 21:38 00:30 Temperature 99.1 F 98.3 F Pulse Rate 85 80 Respiratory 20 20 18 Rate Blood Pressure 120/69 138/78 11/04/18 11/04/18 11/04/18 03:30 06:15 06:30 Temperature 96.6 F L Pulse Rate 69 Respiratory 18 18 18 Rate Blood Pressure 119/77 11/04/18 11/04/18 11:05 14:22 Temperature 96.6 F L 96.3 F L Pulse Rate 83 91 H Respiratory 18 18 Rate Blood Pressure 124/73 136/81 Laboratory Tests 11/02/18 11/02/18 11/02/18 07:00 07:00 07:00 WBC 8.3 RBC 4.64 Hgb 12.2 Hct 39.0 MCV 84.1 MCH 26.3 MCHC 31.3 L RDW 17.0 H Plt Count 275 MPV 10.0 Sodium 142 Potassium 4.1 Chloride 109 H Carbon Dioxide 26 Anion Gap 8 BUN 19 H Creatinine 0.7 Creat Clearance w eGFR 85.36 POC Glucometer Random Glucose 151 H Calcium 8.6 Total Bilirubin 0.2 AST 10 L ALT 14 Alkaline Phosphatase 83 Total Protein 6.6 Albumin 3.4 Urine Color Urine Appearance Urine pH Ur Specific [place] Urine Protein Urine Glucose (UA) Urine Ketones Urine Blood Urine Nitrite Urine Bilirubin Urine Urobilinogen Ur Leukocyte Esterase RPR Titer Nonreactive 11/02/18 11/03/18 11/04/18 08:40 05:19 05:04 WBC RBC Hgb Hct MCV MCH MCHC RDW Plt Count MPV Sodium Potassium Chloride Carbon Dioxide Anion Gap BUN Creatinine Creat Clearance w eGFR POC Glucometer 131 96 Random Glucose Calcium Total Bilirubin AST ALT Alkaline Phosphatase Total Protein Albumin Urine Color Yellow Urine Appearance Clear Urine pH 7.5 D Ur Specific [place] 1.018 Urine Protein Negative Urine Glucose (UA) Negative Urine Ketones Negative Urine Blood Negative Urine Nitrite Negative Urine Bilirubin Negative Urine Urobilinogen 0.2 Ur Leukocyte Esterase Negative RPR Titer labs and VS WNL a/p: continue detox protocol, no c/o SOB, on prednisone
[2018-11-04] MEDS: ALBUTEROL SO4 2.5/IPRATROPIUM 0.5 INH SOL 3 ML VIAL.NEB. NEB PRN (21:21)
[2018-11-04] MEDS: ATORVASTATIN CA 20 MG TABLET (FP) PO SCH (22:07)
[2018-11-04] MEDS: RANITIDINE HCL 150 MG TABLET (FP) PO SCH (22:07)
[2018-11-04] MEDS: THIAMINE HCL 100 MG TABLET (FP) PO SCH (22:07)
[2018-11-04] MEDS: MELATONIN 5 MG TABLETS PO PRN (22:07)
[2018-11-05] MEDS: chlordiazePOXIDE HCL 10 MG CAPSULE PO SCH (05:03)
[2018-11-05] MEDS ORDERED: predniSONE 5 MG TABLET (UD) PO ONE (06:00)
[2018-11-05] MEDS: amLODIPine BESYLATE 10 MG TABLET (FP) PO SCH (10:35)
[2018-11-05] MEDS: EMTRICITABINE 200MG/TENOFOVIR 300MG PO SCH (10:35)
[2018-11-05] MEDS: LORATADINE 10 MG TABLET PO SCH (10:35)
[2018-11-05] MEDS: PRENATAL VITAMINS W/ FOLIC ACID TABLET (FP) PO SCH (10:35)
[2018-11-05] MEDS: valACYclovir HCL 500 MG TABLET (FP) PO SCH (10:35)
--- NOTE | 2018-11-05 13:57 | DS ---
[facility] Detox Discharge Summary Admission Date: 11/01/18 Discharge Date: 11/05/18 - History Present History: Alcohol Dependence Additional Comments: PATIENT GOING TO [facility] ([facility]) FOR AFTERCARE. PATIENT WAS DISCHARGED FROM DETOX UNIT TO BE TAKEN OVER TO REHAB UNIT IN STABLE MEDICAL CONDITION. Pertinent Past History: Asthma, C.O.P.D., History of Implantable Cardioverter-Defibrillator Placement, HTN, Herpes (Rectal), Nicotine Dependence, History Of Seizure, H.I.V. Prophylaxis (P.R.E.P.), Anxiety, History of Depression, C.A.D. - Physical Exam Results Vital Signs: Vital Signs Temperature 98.1 F 11/05/18 09:16 Pulse Rate 70 11/05/18 09:16 Respiratory Rate 18 11/05/18 09:16 Blood Pressure 121/76 11/05/18 09:16 O2 Sat by Pulse Oximetry (%) Pertinent Admission Physical Exam Findings: WITHDRAWAL SYMPTOMS. Laboratory Tests 11/02/18 11/02/18 11/02/18 07:00 07:00 07:00 WBC 8.3 RBC 4.64 Hgb 12.2 Hct 39.0 MCV 84.1 MCH 26.3 MCHC 31.3 L RDW 17.0 H Plt Count 275 MPV 10.0 Sodium 142 Potassium 4.1 Chloride 109 H Carbon Dioxide 26 Anion Gap 8 BUN 19 H Creatinine 0.7 Creat Clearance w eGFR 85.36 POC Glucometer Random Glucose 151 H Calcium 8.6 Total Bilirubin 0.2 AST 10 L ALT 14 Alkaline Phosphatase 83 Total Protein 6.6 Albumin 3.4 Urine Color Urine Appearance Urine pH Ur Specific [place] Urine Protein Urine Glucose (UA) Urine Ketones Urine Blood Urine Nitrite Urine Bilirubin Urine Urobilinogen Ur Leukocyte Esterase RPR Titer Nonreactive 11/02/18 11/03/18 11/04/18 08:40 05:19 05:04 WBC RBC Hgb Hct MCV MCH MCHC RDW Plt Count MPV Sodium Potassium Chloride Carbon Dioxide Anion Gap BUN Creatinine Creat Clearance w eGFR POC Glucometer 131 96 Random Glucose Calcium Total Bilirubin AST ALT Alkaline Phosphatase Total Protein Albumin Urine Color Yellow Urine Appearance Clear Urine pH 7.5 D Ur Specific [place] 1.018 Urine Protein Negative Urine Glucose (UA) Negative Urine Ketones Negative Urine Blood Negative Urine Nitrite Negative Urine Bilirubin Negative Urine Urobilinogen 0.2 Ur Leukocyte Esterase Negative RPR Titer 11/05/18 05:02 WBC RBC Hgb Hct MCV MCH MCHC RDW Plt Count MPV Sodium Potassium Chloride Carbon Dioxide Anion Gap BUN Creatinine Creat Clearance w eGFR POC Glucometer 103 Random Glucose Calcium Total Bilirubin AST ALT Alkaline Phosphatase Total Protein Albumin Urine Color Urine Appearance Urine pH Ur Specific [place] Urine Protein Urine Glucose (UA) Urine Ketones Urine Blood Urine Nitrite Urine Bilirubin Urine Urobilinogen Ur Leukocyte Esterase RPR Titer LABS NOTED. - Treatment Hospital Course: Detox Protocol Followed, Detoxed Safely, Responded well, Discharged Condition Good, Rehab Referral Accepted Patient has Accepted a Rehab Referral to: [facility] ([place], [place]). - Medication Discharge Medications: Ambulatory Orders Amlodipine Besylate 10 mg PO DAILY 08/03/18 Buspirone HCl [Buspar -] 20 mg PO BID 08/03/18 Emtricitabine/Tenofovir [Truvada -] 1 tab PO DAILY #30 tablet 10/07/18 Loratadine 10 mg PO DAILY #14 tablet 10/07/18 Ranitidine HCl 150 mg PO HS #14 capsule 10/07/18 Simvastatin 40 mg PO DAILY #14 tablet 10/07/18 Valacyclovir HCl [Valtrex -] 1,000 mg PO DAILY #14 tablet 10/07/18 Albuterol Sulfate Inhaler - 2 inh IH Q4H PRN 11/05/18 - Diagnosis (1) Asthma Current Visit: Yes Status: Acute Qualifiers: Asthma severity: unspecified severity Asthma persistence: unspecified Asthma complication type: with acute exacerbation Qualified Code(s): J45.901 - Unspecified asthma with (acute) exacerbation (2) COPD (chronic obstructive pulmonary disease) Current Visit: Yes Status: Acute Qualifiers: COPD type: unspecified COPD Qualified Code(s): J44.9 - Chronic obstructive pulmonary disease, unspecified (3) History of implantable cardioverter-defibrillator (ICD) placement Current Visit: Yes Status: Acute (4) Alcohol dependence with uncomplicated withdrawal Current Visit: Yes Status: Acute (5) At risk for sexually transmitted disease due to partner with HIV Current Visit: Yes Status: Chronic (6) CAD (coronary artery disease) Current Visit: Yes Status: Chronic Qualifiers: Coronary Disease-Associated Artery/Lesion type: unspecified vessel or lesion type [place] vs. transplanted heart: unspecified whether [place] or transplanted heart Associated angina: angina presence unspecified Qualified Code(s): I25.10 - Atherosclerotic heart disease of [place] coronary artery without angina pectoris (7) Cocaine dependence Current Visit: Yes Status: Chronic Qualifiers: Substance use status: uncomplicated Qualified Code(s): F14.20 - Cocaine dependence, uncomplicated (8) Herpes Current Visit: Yes Status: Chronic (9) Insomnia Current Visit: Yes Status: Chronic Qualifiers: Insomnia type: unspecified Qualified Code(s): G47.00 - Insomnia, unspecified (10) Nicotine dependence, uncomplicated Current Visit: Yes Status: Chronic Qualifiers: Nicotine product type: cigarettes Qualified Code(s): F17.210 - Nicotine dependence, cigarettes, uncomplicated (11) Presence of cardiac device Current Visit: Yes Status: Chronic - AMA Did Patient Leave Against Medical Advice: No
[2018-11-05 14:13] VITALS: BP 122/79; PULSE 79; TEMP 97
== END 2018-11-05 11:10 | disposition other institution (70) | DRG 774 ==
LOC: YASAS 12:33 → Y3N 14:46
PROVIDERS: ADMIT Surgery; ATTEND Surgery
PROC: HZ2ZZZZ Detoxification Services for Substance Abuse Treatment (ICD-10-PCS; principal; 2018-11-01)
DX: F10.230 Alcohol dependence with withdrawal, uncomplicated (principal); F14.20 Cocaine dependence, uncomplicated; F17.210 Nicotine dependence, cigarettes, uncomplicated; I10 Essential (primary) hypertension; I25.10 Atherosclerotic heart disease of native coronary artery without angina pectoris; J44.9 Chronic obstructive pulmonary disease, unspecified; G47.00 Insomnia, unspecified; R73.9 Hyperglycemia, unspecified; Z20.2 Contact with and (suspected) exposure to infections with a predominantly sexual mode of transmission; Z95.810 Presence of automatic (implantable) cardiac defibrillator; Z86.69 Personal history of other diseases of the nervous system and sense organs; Z87.42 Personal history of other diseases of the female genital tract
CPT/HCPCS: 36415; 80053; 81003; 82962; 85027; 86593; 94640

== ENCOUNTER 2018-11-05 11:42 | Inpatient (IN) | payer OTHER ==
[2018-11-05] MEDS ORDERED: MAGNESIUM HYDROX 2400MG/30ML ORAL SUSPENSION 30 ML CUP PO PRN (11:47)
[2018-11-05] MEDS ORDERED: MENTHOL/PHENOL 1 EACH UD MM PRN (11:47)
[2018-11-05] MEDS ORDERED: IBUPROFEN 400 MG TABLET (FP) PO PRN (11:47)
[2018-11-05] MEDS ORDERED: MAGNESIUM CITRATE 300 ML BOTTLE PO PRN (11:47)
[2018-11-05] MEDS ORDERED: ACETAMINOPHEN 325 MG TABLET (FP) PO PRN (11:47)
[2018-11-05] MEDS ORDERED: P-EPHED 60MG/TRIPROLIDI 2.5MG TABLET PO PRN (11:47)
[2018-11-05] MEDS ORDERED: guaiFENesin 200 MG/10 ML 10 ML UNIT-DOSE CUPS PO PRN (11:47)
[2018-11-05] MEDS ORDERED: LOPERAMIDE HCL 2 MG CAPSULE PO PRN (11:47)
[2018-11-05] MEDS ORDERED: ALBUTEROL SO4 8 GM HFA INHALER IH PRN (11:48)
--- NOTE | 2018-11-05 11:56 | HP ---
[facility] Re[facility] Assess/Revision - Admission History Admitted to Rehab from: [facility] Date of Admission to Rehab: 11/05/2018 - Vital signs Vital Signs: NOTED; STABLE. - Findings Detox History & Physical reviewed: Yes Concur with findings: Yes Comments/Additional Findings: PATIENT'S MEDICAL / MEDICATION HISTORY REVIEWED PRIOR TO DISCHARGE FROM DETOX UNIT. PATIENT WAS DISCHARGED FROM DETOX UNIT TO BE TAKEN OVER TO REHAB UNIT IN STABLE MEDICAL CONDITION. Inpatient Rehab Admission - Rehab Decision to Admit Inpatient rehab admission?: Yes - Initial Determination Are CD services needed?: Yes Free of communicable disease: Yes Not in need of hospitalization: Yes - Rehab Admission Criteria Previous failed treatment: Yes Poor recovery environment: Yes Comorbidities: Yes Lacks judgement: No Patient is meeting Inpatient Rehab admission criteria:: Yes
[2018-11-05] MEDS: THIAMINE HCL 100 MG TABLET (FP) PO SCH (21:20)
[2018-11-05] MEDS: ATORVASTATIN CA 20 MG TABLET (FP) PO SCH (21:21)
[2018-11-05] MEDS: RANITIDINE HCL 150 MG TABLET (FP) PO SCH (21:21)
[2018-11-05] MEDS: MELATONIN 5 MG TABLETS PO PRN (21:21)
[2018-11-06] MEDS: MAG HYDROX/AL HYDROX/SIMETH 30 ML UNIT-DOSE CUP PO PRN (07:25)
[2018-11-06] MEDS ORDERED: PT OWN MED DRAWER 7, Y5N ONE (09:06)
[2018-11-06] MEDS: ALBUTEROL SO4 2.5/IPRATROPIUM 0.5 INH SOL 3 ML VIAL.NEB. NEB PRN (09:16)
[2018-11-06] MEDS: LORATADINE 10 MG TABLET PO SCH (09:37)
[2018-11-06] MEDS: EMTRICITABINE 200MG/TENOFOVIR 300MG PO SCH (09:38)
[2018-11-06] MEDS: PRENATAL VITAMINS W/ FOLIC ACID TABLET (FP) PO SCH (09:38)
[2018-11-06] MEDS: amLODIPine BESYLATE 10 MG TABLET (FP) PO SCH (09:38)
[2018-11-06] MEDS: valACYclovir HCL 500 MG TABLET (FP) PO SCH (09:39)
--- NOTE | 2018-11-06 12:00 | CONSULT ---
[facility] Psychiatric Consult - Data Date of interview: 11/06/18 Admission source: [facility] Identifying data: Patient is a 58 year old single female, without children, unemployed, domiciled, and is supported by [facility]. This is one of multiple admissions to rehab. Patient admitted to for alcohol and cocaine dependence. Substance Abuse History: Smoking Cessation. Smoking history: Current every day smoker. Have you smoked in the past 12 months: Yes. Aproximately how many cigarettes per day: 20. Hx Chewing Tobacco Use: No. Initiated information on smoking cessation: Yes. 'Breaking Loose' booklet given: 11/01/18. - Substance & Tx. History. Hx Alcohol Use: Yes. Hx Substance Use: Yes. Substance Use Type : Alcohol, Cocaine, Marijuana. Hx Substance Use Treatment: Yes (C to 09/29/18,REHAB 09/29/18 to 10/07/18). - Substances Abused. Alcohol. Route : Oral. Frequency: Daily. Amount used: 1 pint of rum. Age of first use: 17. Date of Last Use: 11/01/18. Cocaine. Route: Smoking. Frequency: Daily. Amount used: 200$. Age of first use: 23. Date of Last Use: 11/01/18. Marijuana/Hashish. Route: Smoking. Frequency: 1-2 times per week. Amount used : 10$. Age of first use: 16. Date of Last Use: 11/01/18 Medical History: Remarkable for bronchial asthma, surgery for insertion of a defibrillator (6 years ago), COPD, hypertension, anal herpes, CVA (four years ago), placement of a stent, coronary artery disease (CAD) and current prophylaxis for HIV (HIV positive partner). Psychiatric History: Patient denies h/o psychiatric hospitalizations, and suicide attempt. Patient's first psychiatric contact was in 2008 to address depression in context of homelessness and heavy drug use. She was started on psychotropic medications (unable to recall the names). She continued to see the psychiatrist until 2018 and discontinued treatment after she relapsed. Ms. Bobo reports compliance to medications and outpatient appointments from [phone]. [address] Barnes note on 09/28/18 patient was prescribed prozac 40mg + Buspar 10mg BID (medications verified by Dr. Barnes). At present, patient reports feeling sad, hopeless, amotivation, and anxious but has a desire to live and has no urges to hurt herself or others. Patient's sadness is secondary to her substance abuse and not having family in the [facility]. She says her family reside in [place] and [place]. Patient agreeable in restarting prozac 20mg and buspar 10mg BID as she states the medication as helped her in the past in relieving her symtoms of depression and anxiety. Physical/Sexual Abuse/Trauma History: denies. Mental Status Exam - Mental Status Exam Alert and Oriented to: Time, Place, Person Cognitive Function: Good Patient Appearance: Unkempt Mood: Sad, Anxious Affect: Mood Congruent Patient Behavior: Cooperative Speech Pattern: Appropriate Voice Loudness: Normal Thought Process: Intact Thought Disorder: Not Present Hallucinations: Denies Suicidal Ideation: Denies Homicidal Ideation: Denies Insight/Judgement: Poor Sleep: Fair Appetite: Fair Muscle strength/Tone: Normal Gait/Station: Normal Psychiatric Findings - Problem List ([place] 1, 2,3) (1) Alcohol dependence Current Visit: Yes Status: Acute (2) Cannabis dependence Current Visit: No Status: Chronic Comment: . (3) Cocaine dependence Current Visit: Yes Status: Acute (4) Substance induced mood disorder Current Visit: Yes Status: Acute (5) Depressive disorder Current Visit: Yes Status: Acute - Initial Treatment Plan Initial Treatment Plan: Psychoeducation provided. Detoxification in progress. Will restart Prozac 20mg + buspar 10mg BID. Benefits and side effects discussed. Verbal consent given.
[2018-11-06] MEDS: MELATONIN 5 MG TABLETS PO PRN (21:32)
[2018-11-06] MEDS: THIAMINE HCL 100 MG TABLET (FP) PO SCH (21:32)
[2018-11-06] MEDS: RANITIDINE HCL 150 MG TABLET (FP) PO SCH (21:33)
[2018-11-06] MEDS: ATORVASTATIN CA 20 MG TABLET (FP) PO SCH (21:33)
[2018-11-06] MEDS: busPIRone HCL 10 MG TABLET (FP) PO SCH (21:34)
[2018-11-07] MEDS ORDERED: PT OWN MED DRAWER 7, Y5N ONE (08:38)
[2018-11-07] MEDS: LORATADINE 10 MG TABLET PO SCH (09:36)
[2018-11-07] MEDS: EMTRICITABINE 200MG/TENOFOVIR 300MG PO SCH (09:36)
[2018-11-07] MEDS: busPIRone HCL 10 MG TABLET (FP) PO SCH ×2 (09:36→21:20)
[2018-11-07] MEDS: valACYclovir HCL 500 MG TABLET (FP) PO SCH (09:37)
[2018-11-07] MEDS: PRENATAL VITAMINS W/ FOLIC ACID TABLET (FP) PO SCH (09:37)
[2018-11-07] MEDS: FLUoxetine HCL 20 MG CAPSULE (FP) PO SCH (09:37)
[2018-11-07] MEDS: amLODIPine BESYLATE 10 MG TABLET (FP) PO SCH (09:37)
[2018-11-07] MEDS: RANITIDINE HCL 150 MG TABLET (FP) PO SCH (21:20)
[2018-11-07] MEDS: MELATONIN 5 MG TABLETS PO PRN (21:20)
[2018-11-07] MEDS: THIAMINE HCL 100 MG TABLET (FP) PO SCH (21:20)
[2018-11-07] MEDS: ATORVASTATIN CA 20 MG TABLET (FP) PO SCH (21:20)
[2018-11-07] MEDS: hydrOXYzine PAMOATE 50 MG CAPSULE (FP) PO PRN (21:24)
[2018-11-07] MEDS: MAG HYDROX/AL HYDROX/SIMETH 30 ML UNIT-DOSE CUP PO PRN (22:06)
[2018-11-08] MEDS ORDERED: PT OWN MED DRAWER 7, Y5N ONE (08:27)
[2018-11-08] MEDS: LORATADINE 10 MG TABLET PO SCH (09:50)
[2018-11-08] MEDS: busPIRone HCL 10 MG TABLET (FP) PO SCH ×2 (09:50→21:19)
[2018-11-08] MEDS: amLODIPine BESYLATE 10 MG TABLET (FP) PO SCH (09:51)
[2018-11-08] MEDS: valACYclovir HCL 500 MG TABLET (FP) PO SCH (09:51)
[2018-11-08] MEDS: FLUoxetine HCL 20 MG CAPSULE (FP) PO SCH (09:51)
[2018-11-08] MEDS: PRENATAL VITAMINS W/ FOLIC ACID TABLET (FP) PO SCH (09:51)
[2018-11-08] MEDS: EMTRICITABINE 200MG/TENOFOVIR 300MG PO SCH (09:52)
[2018-11-08] MEDS: hydrOXYzine PAMOATE 50 MG CAPSULE (FP) PO PRN ×2 (09:52→21:20)
[2018-11-08] MEDS: THIAMINE HCL 100 MG TABLET (FP) PO SCH (21:19)
[2018-11-08] MEDS: RANITIDINE HCL 150 MG TABLET (FP) PO SCH (21:19)
[2018-11-08] MEDS: MELATONIN 5 MG TABLETS PO PRN (21:19)
[2018-11-08] MEDS: ATORVASTATIN CA 20 MG TABLET (FP) PO SCH (21:19)
[2018-11-09] MEDS: hydrOXYzine PAMOATE 50 MG CAPSULE (FP) PO PRN ×2 (06:44→21:11)
[2018-11-09] MEDS ORDERED: PT OWN MED DRAWER 7, Y5N ONE (09:18)
[2018-11-09] MEDS: FLUoxetine HCL 20 MG CAPSULE (FP) PO SCH (10:28)
[2018-11-09] MEDS: EMTRICITABINE 200MG/TENOFOVIR 300MG PO SCH (10:28)
[2018-11-09] MEDS: busPIRone HCL 10 MG TABLET (FP) PO SCH ×2 (10:28→21:11)
[2018-11-09] MEDS: LORATADINE 10 MG TABLET PO SCH (10:28)
[2018-11-09] MEDS: amLODIPine BESYLATE 10 MG TABLET (FP) PO SCH ×2 (10:28→10:31)
[2018-11-09] MEDS: PRENATAL VITAMINS W/ FOLIC ACID TABLET (FP) PO SCH (10:28)
[2018-11-09] MEDS: valACYclovir HCL 500 MG TABLET (FP) PO SCH (11:10)
[2018-11-09] MEDS: THIAMINE HCL 100 MG TABLET (FP) PO SCH (21:11)
[2018-11-09] MEDS: ATORVASTATIN CA 20 MG TABLET (FP) PO SCH (21:11)
[2018-11-09] MEDS: MELATONIN 5 MG TABLETS PO PRN (21:11)
[2018-11-09] MEDS: RANITIDINE HCL 150 MG TABLET (FP) PO SCH (21:12)
[2018-11-10] MEDS ORDERED: PT OWN MED DRAWER 7, Y5N ONE (09:23)
[2018-11-10] MEDS: FLUoxetine HCL 20 MG CAPSULE (FP) PO SCH (09:51)
[2018-11-10] MEDS: PRENATAL VITAMINS W/ FOLIC ACID TABLET (FP) PO SCH (09:51)
[2018-11-10] MEDS: amLODIPine BESYLATE 10 MG TABLET (FP) PO SCH (09:51)
[2018-11-10] MEDS: LORATADINE 10 MG TABLET PO SCH (09:51)
[2018-11-10] MEDS: EMTRICITABINE 200MG/TENOFOVIR 300MG PO SCH (09:51)
[2018-11-10] MEDS: busPIRone HCL 10 MG TABLET (FP) PO SCH ×2 (09:52→21:17)
[2018-11-10] MEDS: valACYclovir HCL 500 MG TABLET (FP) PO SCH (09:52)
--- NOTE | 2018-11-10 10:45 | PN ---
Psychiatric Progress Note Vital Signs: Vital Signs Period Temp Pulse Resp BP Sys/Cortes Pulse Ox Last 24 Hr 97.6 F 84-96 18-18 110-118/71-72 Date of Session: 11/10/28 Chief Complaint:: " I am having nightmares of people" HPI: This is day 6 of rehab. Patient complaining of nightmares of seeing people the previous two nights. ROS: Remarkable for bronchial asthma, surgery for insertion of a defibrillator ( 6 years ago), COPD, hypertension, anal herpes, CVA (four years ago), placement of a stent, coronary artery disease (CAD) and current prophylaxis for HIV (HIV positive partner). Current Medications: Active Medications Generic Name Dose Route Start Last Admin Trade Name Freq PRN Reason Stop Dose Admin Acetaminophen 650 mg 11/05/18 11:47 Tylenol - PO Q4H PRN FEVER Al Hydroxide/Mg Hydroxide 30 ml 11/05/18 11:47 11/07/18 22:06 Mylanta Oral Suspension - PO 30 ml Q6H PRN Administration DYSPEPSIA Albuterol Sulfate 2 puff 11/05/18 11:48 Ventolin Hfa Inhaler - IH Q4H PRN SHORT OF BREATH/WHEEZING Albuterol/Ipratropium 1 amp 11/05/18 11:49 11/06/18 09:16 Duoneb - NEB 1 amp Q6H PRN Administration SHORT OF BREATH/WHEEZING Amlodipine Besylate 10 mg 11/06/18 10:00 11/10/18 09:51 Norvasc - PO 10 mg DAILY LIZETTE Administration Atorvastatin Calcium 20 mg 11/05/18 22:00 11/09/18 21:11 Lipitor - PO 20 mg HS LIZETTE Administration Buspirone HCl 10 mg 11/06/18 22:00 11/10/18 09:52 Buspar - PO 10 mg BID LIZETTE Administration Emtricitabine/Tenofovir 1 tab 11/06/18 10:00 11/10/18 09:51 Truvada PO 1 tab DAILY LIZETTE Administration Eucalyptus/Menthol/Phenol/Sorbitol 1 each 11/05/18 11:47 Cepastat Lozenge - MM Q4H PRN SORE THROAT Fluoxetine HCl 20 mg 11/07/18 10:00 11/10/18 09:51 Prozac - PO 20 mg DAILY LIZETTE Administration Guaifenesin 10 ml 11/05/18 11:47 11/05/18 21:21 Robitussin - PO 10 ml Q6H PRN Administration COUGH Hydroxyzine Pamoate 50 mg 11/07/18 18:08 11/09/18 21:11 Vistaril - PO 50 mg Q6H PRN Administration FOR ITCHING Ibuprofen 400 mg 11/05/18 11:47 Motrin - PO Q6H PRN Pain Level 4-6 Loperamide HCl 4 mg 11/05/18 11:47 Imodium - PO Q6H PRN DIARRHEA Loratadine 10 mg 11/06/18 10:00 11/10/18 09:51 Claritin - PO 10 mg DAILY LIZETTE Administration Magnesium Citrate 300 ml 11/05/18 11:47 Citroma - PO Q48H PRN CONSTIPATION Magnesium Hydroxide 30 ml 11/05/18 11:47 Milk Of Magnesia - PO DAILY PRN CONSTIPATION Melatonin 5 mg 11/05/18 22:00 11/09/18 21:11 Melatonin PO 5 mg HS PRN Administration INSOMNIA Multivit/Folic Acid/Iron 1 tab 11/06/18 10:00 11/10/18 09:51 Vitamins (Sjr) - PO 1 tab DAILY LIZETTE Administration Ranitidine HCl 150 mg 11/05/18 22:00 11/09/18 21:12 Zantac - PO 150 mg HS LIZETTE Administration Thiamine HCl 100 mg 11/05/18 22:00 11/09/18 21:11 Vitamin B1 - PO 100 mg HS LIZETTE Administration Valacyclovir HCl 1,000 mg 11/06/18 10:00 11/10/18 09:52 Valtrex - PO 11/13/18 09:59 1,000 mg DAILY LIZETTE Administration Medication(s) Change(s): Will add Seroquel 25mg HS. Current Side Effect: No Lab tests ordered: No Lab tests reviewed: Yes Provider note:: Patient reports having nightmares the previous two nights which consist of her seeing animals, children, and adults. She also reports difficulty sleeping. Patient denies having similar nightmares in the past. No h/ o physical and sexual abuse. Patient is currently prescribed prozac 20mg + Buspar 10mg BID. She was previously prescribed prozac 40mg daily but due to medication nonadherence prozac was restarted at a lower dose. Patient denies thoughts or uges to hurt self. Ms. Bobo denies h/o suicide attempt. No psychosis noted. Patient denies Auditory/visual hallucinations. Will order Seroquel 25mg for insomnia. Total face to face time:: 25 Mental Status Exam - Mental Status Exam Alert and Oriented to: Time, Place, Person Cognitive Function: Good Patient Appearance: Well Groomed Mood: Euthymic Affect: Mood Congruent Patient Behavior: Cooperative Speech Pattern: Appropriate Voice Loudness: Moderately Soft/Quiet Thought Process: Goal Oriented Thought Disorder: Not Present Hallucinations: Denies Suicidal Ideation: Denies Homicidal Ideation: Denies Insight/Judgement: Poor Sleep: Poorly Appetite: Fair Muscle strength/Tone: Normal Gait/Station: Normal Psychiatric Treatment Plan - Problem List (1) Alcohol dependence Current Visit: Yes (2) Cannabis dependence Current Visit: No Comment: . (3) Cocaine dependence Current Visit: Yes (4) Substance induced mood disorder Current Visit: Yes (5) Depressive disorder Current Visit: Yes
[2018-11-10] MEDS: ATORVASTATIN CA 20 MG TABLET (FP) PO SCH (21:17)
[2018-11-10] MEDS: THIAMINE HCL 100 MG TABLET (FP) PO SCH (21:17)
[2018-11-10] MEDS: QUEtiapine FUMARATE 25 MG TABLET (FP) PO SCH (21:17)
[2018-11-10] MEDS: RANITIDINE HCL 150 MG TABLET (FP) PO SCH (21:17)
[2018-11-10] MEDS: MELATONIN 5 MG TABLETS PO PRN (21:18)
[2018-11-11] MEDS ORDERED: PT OWN MED DRAWER 7, Y5N ONE (09:14)
[2018-11-11] MEDS: amLODIPine BESYLATE 10 MG TABLET (FP) PO SCH (10:36)
[2018-11-11] MEDS: busPIRone HCL 10 MG TABLET (FP) PO SCH ×2 (10:36→21:07)
[2018-11-11] MEDS: LORATADINE 10 MG TABLET PO SCH (10:36)
[2018-11-11] MEDS: FLUoxetine HCL 20 MG CAPSULE (FP) PO SCH (10:37)
[2018-11-11] MEDS: PRENATAL VITAMINS W/ FOLIC ACID TABLET (FP) PO SCH (10:37)
[2018-11-11] MEDS: EMTRICITABINE 200MG/TENOFOVIR 300MG PO SCH (10:37)
[2018-11-11] MEDS: valACYclovir HCL 500 MG TABLET (FP) PO SCH (10:39)
[2018-11-11] MEDS: ALBUTEROL SO4 2.5/IPRATROPIUM 0.5 INH SOL 3 ML VIAL.NEB. NEB PRN (19:08)
[2018-11-11] MEDS: RANITIDINE HCL 150 MG TABLET (FP) PO SCH (21:07)
[2018-11-11] MEDS: hydrOXYzine PAMOATE 50 MG CAPSULE (FP) PO PRN (21:07)
[2018-11-11] MEDS: ATORVASTATIN CA 20 MG TABLET (FP) PO SCH (21:07)
[2018-11-11] MEDS: THIAMINE HCL 100 MG TABLET (FP) PO SCH (21:07)
[2018-11-11] MEDS: QUEtiapine FUMARATE 25 MG TABLET (FP) PO SCH (21:07)
[2018-11-11] MEDS: MELATONIN 5 MG TABLETS PO PRN (21:07)
[2018-11-12] MEDS ORDERED: PT OWN MED DRAWER 7, Y5N ONE (08:57)
[2018-11-12] MEDS: busPIRone HCL 10 MG TABLET (FP) PO SCH ×2 (09:47→21:06)
[2018-11-12] MEDS: FLUoxetine HCL 20 MG CAPSULE (FP) PO SCH (09:47)
[2018-11-12] MEDS: EMTRICITABINE 200MG/TENOFOVIR 300MG PO SCH (09:47)
[2018-11-12] MEDS: amLODIPine BESYLATE 10 MG TABLET (FP) PO SCH (09:48)
[2018-11-12] MEDS: LORATADINE 10 MG TABLET PO SCH (09:48)
[2018-11-12] MEDS: valACYclovir HCL 500 MG TABLET (FP) PO SCH (09:48)
[2018-11-12] MEDS: PRENATAL VITAMINS W/ FOLIC ACID TABLET (FP) PO SCH (09:48)
--- NOTE | 2018-11-12 10:47 | PN ---
[facility] Progress Note (SOAP) Subjective: Patient ready for discharge Objective: 11/12/18 10:46 Vital Signs (72 hours) 11/09/18 11/10/18 11/10/18 14:40 03:30 07:28 Temperature 97.6 F Pulse Rate 96 H 84 Respiratory 18 18 Rate Blood Pressure 110/72 115/71 11/10/18 11/11/18 11/11/18 09:27 03:30 06:59 Temperature 97.6 F Pulse Rate 89 74 Respiratory 18 16 18 Rate Blood Pressure 118/72 113/82 11/11/18 11/12/18 11/12/18 09:17 03:30 07:06 Temperature 97.7 F Pulse Rate 77 80 Respiratory 16 16 Rate Blood Pressure 121/78 112/70 11/12/18 09:01 Temperature Pulse Rate 81 Respiratory Rate Blood Pressure 114/74 11/12/18 10:47 PE: A+O x3, CN 2-12 intact, no neurological deficits, Lungs clear, heart rate regular, s1s2 audible,. Medically stable for discharge 11/12/18 10:50 Assessment: 11/12/18 10:49 Medically stable for discharge; Diagnoses: ETOH Abuse Cocaine Dependance CAD, Internal AED COPD On PrEP Plan: Patient will receive aftercare at [facility]. PCP is Dr. Schmitz at [address] [place] [address] in [place]. Medications sent to patient's pharmacy.
[2018-11-12] MEDS: ALBUTEROL SO4 2.5/IPRATROPIUM 0.5 INH SOL 3 ML VIAL.NEB. NEB PRN ×2 (11:14→16:51)
[2018-11-12] MEDS: hydrOXYzine PAMOATE 50 MG CAPSULE (FP) PO PRN ×2 (15:29→21:06)
[2018-11-12] MEDS: ATORVASTATIN CA 20 MG TABLET (FP) PO SCH (21:06)
[2018-11-12] MEDS: MELATONIN 5 MG TABLETS PO PRN (21:06)
[2018-11-12] MEDS: THIAMINE HCL 100 MG TABLET (FP) PO SCH (21:06)
[2018-11-12] MEDS: QUEtiapine FUMARATE 25 MG TABLET (FP) PO SCH (21:06)
[2018-11-12] MEDS: RANITIDINE HCL 150 MG TABLET (FP) PO SCH (21:08)
[2018-11-13 07:05] VITALS: BP 107/75; PULSE 75; TEMP 97.8
[2018-11-13] MEDS: hydrOXYzine PAMOATE 50 MG CAPSULE (FP) PO PRN (08:27)
--- NOTE | 2018-11-13 08:33 | PN ---
S Progress Note Note: PT COMPLETED REHAB AND DISCHARGED TODAY. ALERT O X 3. PT STATES SHE WILL FOLLOW UP WIT PCP DR. NADIA HOLDER AT [address] [place] [address]. REFERRED TO [facility] FOR [facility]. Vital Signs - 24 hr 11/12/18 11/13/18 11/13/18 09:01 00:30 03:30 Temperature Pulse Rate 81 Respiratory 18 18 Rate Blood Pressure 114/74 11/13/18 07:04 Temperature 97.8 F Pulse Rate 75 Respiratory 16 Rate Blood Pressure 107/75 Laboratory Tests 11/06/18 11/07/18 11/08/18 06:29 06:40 06:39 POC Glucometer 101 92 111 11/09/18 11/10/18 11/11/18 06:43 06:21 06:42 POC Glucometer 115 102 117 11/12/18 11/13/18 06:12 06:49 POC Glucometer 110 133 NAD MEDICALLY STABLE. D/C TODAY.
== END 2018-11-13 08:40 | disposition home or self-care (01) | DRG 772 ==
LOC: YASAS 11:42 → Y3W 11:43 → Y3E 13:10
PROVIDERS: ADMIT Neuromusculoskeletal Medicine & OMM; ATTEND Neuromusculoskeletal Medicine & OMM
PROC: HZ42ZZZ Group Counseling for Substance Abuse Treatment, Cognitive-Behavioral (ICD-10-PCS; principal; 2018-11-05)
DX: F10.20 Alcohol dependence, uncomplicated (principal); F14.20 Cocaine dependence, uncomplicated; F12.20 Cannabis dependence, uncomplicated; F17.210 Nicotine dependence, cigarettes, uncomplicated; F19.24 Other psychoactive substance dependence with psychoactive substance-induced mood disorder; F32.9 Major depressive disorder, single episode, unspecified; J45.901 Unspecified asthma with (acute) exacerbation; J44.9 Chronic obstructive pulmonary disease, unspecified; I25.10 Atherosclerotic heart disease of native coronary artery without angina pectoris; K21.9 Gastro-esophageal reflux disease without esophagitis; Z95.5 Presence of coronary angioplasty implant and graft; Z95.810 Presence of automatic (implantable) cardiac defibrillator; Z20.2 Contact with and (suspected) exposure to infections with a predominantly sexual mode of transmission; Z87.42 Personal history of other diseases of the female genital tract; Z86.73 Personal history of transient ischemic attack (TIA), and cerebral infarction without residual deficits
CPT/HCPCS: 82962; 94640

== ENCOUNTER 2018-12-19 12:38 | Inpatient (IN) | payer OTHER ==
[2018-12-19 13:05] VITALS: BMI 23.3
--- NOTE | 2018-12-19 14:08 | HP ---
CIWA Score Nausea/Vomitin Muscle Tremors: 4-Moderate,w/Arms Extend Anxiety: 4-Mod. Anxious/Guarded Agitation: 4-Moderately Restless Paroxysmal Sweats: 1-Minimal Palms Moist Orientation: 0-Oriented Tacttile Disturbances: 0-None Auditory Disturbances: 0-None Visual Disturbances: 0-None Headache: 2-Mild CIWA-Ar Total Score: 17 - Admission Criteria OASAS Guidelines: Admission for Medically Managed Detox: Requires at least one of the followin. CIWA greater than 12 2. Seizures within the past 24 hours 3. Delirium tremens within the past 24 hours 4. Hallucinations within the past 24 hours 5. Acute intervention needed for co occurring medical disorder 6. Acute intervention needed for co occurring psychiatric disorder 7. Severe withdrawal that cannot be handled at a lower level of care (continued vomiting, continued diarrhea, abnormal vital signs) requiring intravenous medication and/or fluids 8. Patient presents the following: CIWA greater than 12 Admission Criteria Met: Admission criteria met Admission ROS S - HPI Chief Complaint: This is the end of the line for me, I've got to stop. Allergies/Adverse Reactions: Allergies Allergy/AdvReac Type Severity Reaction Status Date / Time No Known Allergies Allergy Verified 11/01/18 15:17 History of Present Illness: 58 yo woman here for detox for detox from alcohol - also using crack and marijuana. This is one of many admissions for treatment - last here 11/01/18. History of seizures and black outs. Exam Limitations: Clinical Condition - Ebola screening Have you traveled outside of the country in the last 21 days: No (N) Have you had contact with anyone from an Ebola affected area: No Do you have a fever: No - Review of Systems Constitutional: Loss of Appetite, Malaise, Changes in sleep, Weakness EENT: reports: No Symptoms Reported Respiratory: reports: SOB with Exertion Cardiac: reports: No Symptoms Reported GI: reports: Nausea, Poor Appetite, Poor Fluid Intake, Indigestion, Abdominal cramping : reports: Frequency Musculoskeletal: reports: No Symptoms Reported Integumentary: reports: Dryness Neuro: reports: Headache, Tingling Endocrine: reports: No Symptoms Reported Hematology: reports: No Symptoms Reported Psychiatric: reports: Judgement Intact, Mood/Affect Appropiate, Orientated x3, Anxious Other Systems: Reviewed and Negative Patient History - Patient Medical History Hx Anemia: No Hx Asthma: Yes Hx Chronic Obstructive Pulmonary Disease (COPD): Yes Hx Cancer: No Hx Cardiac Disorders: Yes (CAD) Hx Congestive Heart Failure: No Hx Hypertension: Yes Hx Hypercholesterolemia: No Hx Pacemaker: No HX Cerebrovascular Accident: No Hx Seizures: Yes (1990 - head trauma) Hx Dementia: No Hx Diabetes: No (borderline) Hx Gastrointestinal Disorders: Yes (GERD) Hx Liver Disease: No Hx Genitourinary Disorders: No Hx Sexually Transmitted Disorders: Yes (herpes) Hx Renal Disease (ESRD): No Hx Thyroid Disease: No Hx Human Immunodeficiency Virus (HIV): No (Pt is currently on truvada PreP because her boyfriend is pos.) Hx Hepatitis C: No (denies) Hx Depression: Yes (never hospitalized) Hx Suicide Attempt: No Hx Bipolar Disorder: No Hx Schizophrenia: No - Patient Surgical History Past Surgical History: Yes Hx Neurologic Surgery: No Hx Cataract Extraction: No Hx Cardiac Surgery: Yes (implanted defibrillator [address] [facility]) Hx Lung Surgery: No Hx Breast Surgery: No Hx Breast Biopsy: Yes (2010 left) Hx Abdominal Surgery: Yes (inguinal hernia repair left side) Hx Appendectomy: No Hx Cholecystectomy: No Hx Genitourinary Surgery: Yes (right ectopic - tube removed) Hx Section: No Hx Orthopedic Surgery: Yes (left bunion surgery 2015) Anesthesia Reaction: No - PPD History Previous Implant?: Yes Documented Results: Negative w/proof Implanted On Prior [facility] Admission?: Yes Date: 08/05/18 Results: 0mm PPD to be Administered?: No - Reproductive History Patient is a Female of Child Bearing Age (11 -55 yrs old): No Last Menstrual Period: 07/15/04 - Smoking Cessation Smoking history: Current every day smoker Have you smoked in the past 12 months: Yes Aproximately how many cigarettes per day: 20 Hx Chewing Tobacco Use: No Initiated information on smoking cessation: Yes 'Breaking Loose' booklet given: 12/19/18 (give on floor) - Substance & Tx. History Hx Alcohol Use: Yes Hx Substance Use: Yes Substance Use Type: None, Alcohol, Cocaine, Marijuana Hx Substance Use Treatment: Yes - Substances abused Alcohol Substance route: Oral Frequency: 3-6 times per week Amount used: 2 pints Age of first use: 16 Date of last use: 12/19/18 Crack Substance route: Smoking Frequency: 3-6 times per week Amount used: unknown quantiy"just smoke" Age of first use: 23 Date of last use: 12/18/18 Marijuana/Hashish Substance route: Smoking Frequency: Daily Amount used: 2 joints Age of first use: 16 Date of last use: 12/19/18 Cocaine Substance route: Smoking Frequency: Daily Amount used: "just smole it " Age of first use: 23 Date of last use: 12/19/18 Family Disease History - Family Disease History Family Disease History: Diabetes: Mother (living ), Brother (four ), Heart Disease: Father (, etoh), Other: Father, Mother, Brother, Sister (three ) Admission Physical Exam S - Vital Signs Vital Signs: Vital Signs - 24 hr 12/19/18 12:59 Temperature 98.2 F Pulse Rate 96 H Respiratory 19 Rate Blood Pressure 111/75 - Physical General Appearance: Yes: Nourished, Appropriately Dressed, Moderate Distress, Tremorous, Anxious, Other (restless) HEENTM: Yes: EOMI, Hearing grossly Normal, Normocephalic, Normal Voice, Pharynx Normal, Other (dentures) Respiratory: Yes: No Respiratory Distress, Rhonchi Neck: Yes: No masses,lesions,Nodules Breast: Yes: Breast Exam Deferred Cardiology: Yes: Regular Rhythm, Regular Rate, Surgical Scar Abdominal: Yes: Flat, Soft Genitourinary: Yes: Frequency Back: Yes: Normal Inspection Musculoskeletal: Yes: full range of Motion, Gait Steady Extremities: Yes: Normal Inspection, Normal Range of Motion, Non-Tender Neurological: Yes: Fully Oriented, Alert, Motor Strength 5/5, Normal Mood/Affect , Normal Response Integumentary: Yes: Normal Color, Warm Lymphatic: Yes: Within Normal Limits - Diagnostic (1) Alcohol dependence with uncomplicated withdrawal Current Visit: Yes Status: Acute Comment: . (2) Cannabis dependence Current Visit: Yes Status: Chronic Comment: . (3) Crack cocaine use Current Visit: Yes Status: Chronic (4) Chronic GERD Current Visit: Yes Status: Chronic (5) Asthma Current Visit: Yes Status: Chronic Qualifiers: Asthma severity: unspecified severity Asthma persistence: unspecified Asthma complication type: with acute exacerbation Qualified Code(s): J45.901 - Unspecified asthma with (acute) exacerbation (6) At risk for sexually transmitted disease due to partner with HIV Current Visit: Yes Status: Chronic Comment: pt is currently on PreP for a partner who is +HIV (7) CAD (coronary artery disease) Current Visit: Yes Status: Chronic Qualifiers: Coronary Disease-Associated Artery/Lesion type: unspecified vessel or lesion type [place] vs. transplanted heart: unspecified whether [place] or transplanted heart Associated angina: angina presence unspecified Qualified Code(s): I25.10 - Atherosclerotic heart disease of [place] coronary artery without angina pectoris (8) COPD (chronic obstructive pulmonary disease) Current Visit: Yes Status: Chronic Qualifiers: COPD type: unspecified COPD Qualified Code(s): J44.9 - Chronic obstructive pulmonary disease, unspecified (9) History of implantable cardioverter-defibrillator (ICD) placement Current Visit: Yes Status: Chronic (10) Nicotine dependence, uncomplicated Current Visit: Yes Status: Chronic Qualifiers: Nicotine product type: cigarettes Qualified Code(s): F17.210 - Nicotine dependence, cigarettes, uncomplicated Comment: . (11) Presence of cardiac device Current Visit: Yes Status: Chronic Comment: States has in internal defibrillator (12) Prediabetes Current Visit: Yes Status: Chronic Cleared for Admission S - Detox or Rehab S Level of Care: Medically Managed Detox Regimen/Protocol: Librium Breathalyzer - Breathalyzer Breathalyzer: 0.037 Urine Drug Screen - Test Device Lot number: [id number] Expiration date: 09/03/20 - Control Is test valid?: Yes - Results Drug screen NEGATIVE: No Urine drug screen results: THC-Marijuana, PEDRO-Cocaine Inpatient Rehab Admission - Rehab Decision to Admit Inpatient rehab admission?: No
[2018-12-19] MEDS ORDERED: METHOCARBAMOL 500 MG TABLET PO PRN (14:20)
[2018-12-19] MEDS ORDERED: BISMUTH SUBSALICYLATE 524 MG/30 ML UD PO PRN (14:20)
[2018-12-19] MEDS ORDERED: MAGNESIUM CITRATE 300 ML BOTTLE PO PRN (14:20)
[2018-12-19] MEDS ORDERED: chlordiazePOXIDE HCL 25 MG CAPSULE PO PRN (14:20)
[2018-12-19] MEDS ORDERED: ACETAMINOPHEN 325 MG TABLET (FP) PO PRN (14:20)
[2018-12-19] MEDS ORDERED: MENTHOL/PHENOL 1 EACH UD MM PRN (14:20)
[2018-12-19] MEDS ORDERED: MAGNESIUM HYDROX 2400MG/30ML ORAL SUSPENSION 30 ML CUP PO PRN (14:20)
[2018-12-19] MEDS ORDERED: hydrOXYzine PAMOATE 25 MG CAPSULE (FP) PO PRN (14:20)
[2018-12-19] MEDS ORDERED: ALBUTEROL SO4 2.5/IPRATROPIUM 0.5 INH SOL 3 ML VIAL.NEB. NEB PRN (14:24)
[2018-12-19] MEDS ORDERED: chlordiazePOXIDE HCL 25 MG CAPSULE PO ONE (14:45)
[2018-12-19] MEDS: chlordiazePOXIDE HCL 25 MG CAPSULE PO SCH ×2 (17:56→22:02)
[2018-12-19] MEDS ORDERED: QUEtiapine FUMARATE 25 MG TABLET (FP) PO SCH (22:00)
[2018-12-19] MEDS: THIAMINE HCL 100 MG TABLET (FP) PO SCH (22:02)
[2018-12-19] MEDS: ATORVASTATIN CA 20 MG TABLET (FP) PO SCH (22:03)
[2018-12-20] MEDS: chlordiazePOXIDE HCL 25 MG CAPSULE PO SCH ×4 (05:18→22:09)
--- NOTE | 2018-12-20 09:10 | CONSULT ---
[facility] Psychiatric Consult - Data Date of interview: 12/20/18 Admission source: [facility] Identifying data: 58 y/o female single, unemployed, domiciled,no children on SSI re-admitted to our Detox unit for alcohol and Cocaine dependence Substance Abuse History: Her most recent admmission to [facility] was last month , she has had numerous past Detox and Rehab treatment over time and failed treatment. She reported a history of seizure disorder and black out spells. 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 She is currently receiving HIV prophyslaxis due to unsafe sex with an HIV+ partner. Surgical history: stent placement, left sided inguinal hernia repaired , defibrillator insertion , left bunion surgery Physical/Sexual Abuse/Trauma History: Patient denies past psychiatric history or treatment denies prior suicide ideation or attempt. Her records reviewed indicate a long history of depression and anxiety for whuch she received treatment with psychotropic medications. She denies physical or emotional complaints at this time. When pressed further she acknowledged that she sees an out patient psychiatrist at at [facility] and treated with Seroquel 50 mg po q hs and Prozac 20 mg po daily. She claimed that her depression is mild sleep and eat good, she wants to get out of drugs that is what makes her depressed , she denies history of trauma or abuse Mental Status Exam - Mental Status Exam Alert and Oriented to: Person Cognitive Function: Fair Patient Appearance: Unkempt, Disheveled Mood: Anxious Affect: Appropriate Patient Behavior: Talkative, Appropriate, Cooperative Speech Pattern: Excessive Voice Loudness: Normal Thought Process: Circumstantial Hallucinations: Denies Suicidal Ideation: Denies Homicidal Ideation: Denies Insight/Judgement: Poor Sleep: Fair Appetite: Good Muscle strength/Tone: Normal Gait/Station: Normal Psychiatric Findings - Problem List ([place] 1, 2,3) (1) COPD (chronic obstructive pulmonary disease) Current Visit: Yes Status: Chronic Qualifiers: COPD type: unspecified COPD Qualified Code(s): J44.9 - Chronic obstructive pulmonary disease, unspecified (2) Chronic GERD Current Visit: Yes Status: Chronic (3) History of implantable cardioverter-defibrillator (ICD) placement Current Visit: Yes Status: Chronic (4) Nicotine dependence, uncomplicated Current Visit: Yes Status: Chronic Qualifiers: Nicotine product type: cigarettes Qualified Code(s): F17.210 - Nicotine dependence, cigarettes, uncomplicated Comment: . (5) Prediabetes Current Visit: Yes Status: Chronic (6) Presence of cardiac device Current Visit: Yes Status: Chronic Comment: States has in internal defibrillator (7) Substance induced mood disorder Current Visit: No Status: Acute (8) Alcohol dependence Current Visit: No Status: Chronic Qualifiers: Substance use status: uncomplicated Qualified Code(s): F10.20 - Alcohol dependence, uncomplicated (9) Cocaine dependence Current Visit: No Status: Chronic Qualifiers: Substance use status: uncomplicated Qualified Code(s): F14.20 - Cocaine dependence, uncomplicated (10) HIV (human immunodeficiency virus infection) Current Visit: No Status: Chronic Qualifiers: HIV symptom status: asymptomatic Qualified Code(s): Z21 - Asymptomatic human immunodeficiency virus [HIV] infection status - Initial Treatment Plan Initial Treatment Plan: Continue in patient Detox. Serquel 25 mg po q hs. Monitor response
[2018-12-20 10:24] LABS: ALBUMIN 3.7 g/dl (3.4-5.0); BILIRUBIN,TOTAL 0.7 mg/dL (0.2-1); CALCIUM 8.8 mg/dL (8.5-10.1); CREATININE 0.8 mg/dL (0.55-1.3); POTASSIUM 4.1 mmol/L (3.5-5.1); TOT PROT 6.6 g/dl (6.4-8.2)
[2018-12-20 10:30] LABS: HEMATOCRIT 38.5 % (32.4-45.2); HEMOGLOBIN 12.3 GM/dL (10.7-15.3); MCH 27.3 pg (25.7-33.7); MCHC 31.9 g/dl (32.0-36.0); MEAN CELL VOLUME 85.6 fl (80-96); MEAN PLT VOLUME 9.8 fl (7.5-11.1); PLATELET COUNT 330 K/MM3 (134-434); RBC 4.49 M/mm3 (3.60-5.2); RDW 17.6 % (11.6-15.6); WHITE BLOOD COUNT 8.6 K/mm3 (4.0-10.0)
[2018-12-20] MEDS: PRENATAL VITAMINS W/ FOLIC ACID TABLET (FP) PO SCH (10:54)
[2018-12-20] MEDS: valACYclovir HCL 1000 MG TABLET PO SCH (10:54)
[2018-12-20] MEDS: RANITIDINE HCL 150 MG TABLET (FP) PO SCH (10:54)
[2018-12-20] MEDS: ASPIRIN 81 MG CHEWABLE TABLETS PO SCH (10:54)
[2018-12-20] MEDS: amLODIPine BESYLATE 10 MG TABLET (FP) PO SCH (10:54)
[2018-12-20] MEDS: EMTRICITABINE 200MG/TENOFOVIR 300MG PO SCH (10:55)
--- NOTE | 2018-12-20 11:12 | PN ---
S CIWA - CIWA Score Nausea/Vomitin-Mild Nausea/No Vomiting Muscle Tremors: 4-Moderate,w/Arms Extend Anxiety: 2 Agitation: 3 Paroxysmal Sweats: 1-Minimal Palms Moist Orientation: 1-Uncertain about Date Tacttile Disturbances: 0-None Auditory Disturbances: 0-None Visual Disturbances: 0-None Headache: 1-Very Mild CIWA-Ar Total Score: 13 S Progress Note (SOAP) Subjective: tired resting on bed encourage oral fluid feeling ok with librium protocol Objective: 12/20/18 11:10 Vital Signs Temperature 97.2 F L 12/20/18 09:11 Pulse Rate 64 12/20/18 09:11 Respiratory Rate 16 12/20/18 09:11 Blood Pressure 127/68 12/20/18 09:11 O2 Sat by Pulse Oximetry (%) Laboratory Last Values WBC 8.6 K/mm3 (4.0-10.0) 12/20/18 07:50 RBC 4.49 M/mm3 (3.60-5.2) 12/20/18 07:50 Hgb 12.3 GM/dL (10.7-15.3) 12/20/18 07:50 Hct 38.5 % (32.4-45.2) 12/20/18 07:50 MCV 85.6 fl (80-96) 12/20/18 07:50 MCH 27.3 pg (25.7-33.7) 12/20/18 07:50 MCHC 31.9 g/dl (32.0-36.0) L 12/20/18 07:50 RDW 17.6 % (11.6-15.6) H 12/20/18 07:50 Plt Count 330 K/MM3 (134-434) 12/20/18 07:50 MPV 9.8 fl (7.5-11.1) 12/20/18 07:50 Sodium 141 mmol/L (136-145) 12/20/18 07:50 Potassium 4.1 mmol/L (3.5-5.1) 12/20/18 07:50 Chloride 109 mmol/L (98-107) H 12/20/18 07:50 Carbon Dioxide 26 mmol/L (21-32) 12/20/18 07:50 Anion Gap 6 MMOL/L (8-16) L 12/20/18 07:50 BUN 24 mg/dL (7-18) H 12/20/18 07:50 Creatinine 0.8 mg/dL (0.55-1.3) 12/20/18 07:50 Est GFR (CKD-EPI)AfAm 92.87 12/20/18 07:50 Est GFR (CKD-EPI)NonAf 80.13 12/20/18 07:50 POC Glucometer 93 UNITS (80-120) 12/20/18 05:18 Random Glucose 76 mg/dL (74-106) 12/20/18 07:50 Calcium 8.8 mg/dL (8.5-10.1) 12/20/18 07:50 Total Bilirubin 0.7 mg/dL (0.2-1) 12/20/18 07:50 AST 15 U/L (15-37) 12/20/18 07:50 ALT 31 U/L (13-61) 12/20/18 07:50 Alkaline Phosphatase 90 U/L (45-117) 12/20/18 07:50 Total Protein 6.6 g/dl (6.4-8.2) 12/20/18 07:50 Albumin 3.7 g/dl (3.4-5.0) 12/20/18 07:50 lab noted Assessment: 12/20/18 11:11 alcohol withdrawal sx Plan: continue detox
[2018-12-20] MEDS: MELATONIN 5 MG TABLETS PO PRN (22:09)
[2018-12-20] MEDS: QUEtiapine FUMARATE 25 MG TABLET (FP) PO SCH (22:09)
[2018-12-20] MEDS: ATORVASTATIN CA 20 MG TABLET (FP) PO SCH (22:09)
[2018-12-20] MEDS: THIAMINE HCL 100 MG TABLET (FP) PO SCH (22:09)
[2018-12-21] MEDS: chlordiazePOXIDE HCL 25 MG CAPSULE PO SCH ×2 (05:54→10:52)
[2018-12-21] MEDS ORDERED: valACYclovir HCL 500 MG TABLET (FP) ONE (08:57)
[2018-12-21] MEDS: RANITIDINE HCL 150 MG TABLET (FP) PO SCH (10:52)
[2018-12-21] MEDS: amLODIPine BESYLATE 10 MG TABLET (FP) PO SCH (10:52)
[2018-12-21] MEDS: PRENATAL VITAMINS W/ FOLIC ACID TABLET (FP) PO SCH (10:52)
[2018-12-21] MEDS: ASPIRIN 81 MG CHEWABLE TABLETS PO SCH (10:52)
[2018-12-21] MEDS: valACYclovir HCL 1000 MG TABLET PO SCH (10:52)
[2018-12-21] MEDS: EMTRICITABINE 200MG/TENOFOVIR 300MG PO SCH (10:53)
--- NOTE | 2018-12-21 11:57 | PN ---
S CIWA - CIWA Score Nausea/Vomitin-Mild Nausea/No Vomiting Muscle Tremors: 3 Anxiety: 3 Agitation: 2 Paroxysmal Sweats: 1-Minimal Palms Moist Orientation: 0-Oriented Tacttile Disturbances: 0-None Auditory Disturbances: 0-None Visual Disturbances: 0-None Headache: 2-Mild CIWA-Ar Total Score: 12 S Progress Note (SOAP) Subjective: trouble sleep at night anxious encourage seroquel 50 mg po hs as ordered Objective: 12/21/18 11:56 Vital Signs Temperature 97.0 F L 12/21/18 09:22 Pulse Rate 73 12/21/18 09:22 Respiratory Rate 18 12/21/18 09:22 Blood Pressure 103/66 12/21/18 09:22 O2 Sat by Pulse Oximetry (%) Laboratory Last Values WBC 8.6 K/mm3 (4.0-10.0) 12/20/18 07:50 RBC 4.49 M/mm3 (3.60-5.2) 12/20/18 07:50 Hgb 12.3 GM/dL (10.7-15.3) 12/20/18 07:50 Hct 38.5 % (32.4-45.2) 12/20/18 07:50 MCV 85.6 fl (80-96) 12/20/18 07:50 MCH 27.3 pg (25.7-33.7) 12/20/18 07:50 MCHC 31.9 g/dl (32.0-36.0) L 12/20/18 07:50 RDW 17.6 % (11.6-15.6) H 12/20/18 07:50 Plt Count 330 K/MM3 (134-434) 12/20/18 07:50 MPV 9.8 fl (7.5-11.1) 12/20/18 07:50 Sodium 141 mmol/L (136-145) 12/20/18 07:50 Potassium 4.1 mmol/L (3.5-5.1) 12/20/18 07:50 Chloride 109 mmol/L (98-107) H 12/20/18 07:50 Carbon Dioxide 26 mmol/L (21-32) 12/20/18 07:50 Anion Gap 6 MMOL/L (8-16) L 12/20/18 07:50 BUN 24 mg/dL (7-18) H 12/20/18 07:50 Creatinine 0.8 mg/dL (0.55-1.3) 12/20/18 07:50 Est GFR (CKD-EPI)AfAm 92.87 12/20/18 07:50 Est GFR (CKD-EPI)NonAf 80.13 12/20/18 07:50 POC Glucometer 102 UNITS (80-120) 12/21/18 05:53 Random Glucose 76 mg/dL (74-106) 12/20/18 07:50 Calcium 8.8 mg/dL (8.5-10.1) 12/20/18 07:50 Total Bilirubin 0.7 mg/dL (0.2-1) 12/20/18 07:50 AST 15 U/L (15-37) 12/20/18 07:50 ALT 31 U/L (13-61) 12/20/18 07:50 Alkaline Phosphatase 90 U/L (45-117) 12/20/18 07:50 Total Protein 6.6 g/dl (6.4-8.2) 12/20/18 07:50 Albumin 3.7 g/dl (3.4-5.0) 12/20/18 07:50 RPR Titer Nonreactive (NONREACTIVE) 12/20/18 07:50 HIV 1&2 Antibody Screen Negative 12/20/18 09:20 HIV P24 Antigen Negative 12/20/18 09:20 lab noted encourage oral fluid Assessment: 12/21/18 11:57 withdrawal sx Plan: continue detox
[2018-12-21] MEDS ORDERED: chlordiazePOXIDE HCL 10 MG CAPSULE PO PRN (17:00)
[2018-12-21] MEDS: chlordiazePOXIDE HCL 10 MG CAPSULE PO SCH ×2 (18:07→22:00)
[2018-12-21] MEDS: QUEtiapine FUMARATE 25 MG TABLET (FP) PO SCH (22:00)
[2018-12-21] MEDS: ATORVASTATIN CA 20 MG TABLET (FP) PO SCH (22:00)
[2018-12-21] MEDS: THIAMINE HCL 100 MG TABLET (FP) PO SCH (22:00)
[2018-12-21] MEDS: MELATONIN 5 MG TABLETS PO PRN (22:01)
[2018-12-21] MEDS: MAG HYDROX/AL HYDROX/SIMETH 30 ML UNIT-DOSE CUP PO PRN (22:18)
[2018-12-22] MEDS: chlordiazePOXIDE HCL 10 MG CAPSULE PO SCH ×3 (05:28→17:22)
[2018-12-22] MEDS ORDERED: valACYclovir HCL 500 MG TABLET (FP) ONE (09:32)
[2018-12-22] MEDS: amLODIPine BESYLATE 10 MG TABLET (FP) PO SCH (10:16)
[2018-12-22] MEDS: RANITIDINE HCL 150 MG TABLET (FP) PO SCH (10:35)
[2018-12-22] MEDS: PRENATAL VITAMINS W/ FOLIC ACID TABLET (FP) PO SCH (10:35)
[2018-12-22] MEDS: ASPIRIN 81 MG CHEWABLE TABLETS PO SCH (10:35)
[2018-12-22] MEDS: EMTRICITABINE 200MG/TENOFOVIR 300MG PO SCH (10:35)
[2018-12-22] MEDS: valACYclovir HCL 1000 MG TABLET PO SCH (10:37)
--- NOTE | 2018-12-22 15:07 | PN ---
S CIWA - CIWA Score Nausea/Vomitin-Mild Nausea/No Vomiting Muscle Tremors: 2 Anxiety: 2 Agitation: 2 Paroxysmal Sweats: 1-Minimal Palms Moist Orientation: 0-Oriented Tacttile Disturbances: 0-None Auditory Disturbances: 0-None Visual Disturbances: 0-None Headache: 1-Very Mild CIWA-Ar Total Score: 9 S Progress Note (SOAP) Subjective: feeling better today less tremor ambulate on hallway social with peers in day room Objective: 12/22/18 15:04 Vital Signs Temperature 98 F 12/22/18 13:07 Pulse Rate 85 12/22/18 13:07 Respiratory Rate 18 12/22/18 13:07 Blood Pressure 118/68 12/22/18 13:07 O2 Sat by Pulse Oximetry (%) Laboratory Last Values WBC 8.6 K/mm3 (4.0-10.0) 12/20/18 07:50 RBC 4.49 M/mm3 (3.60-5.2) 12/20/18 07:50 Hgb 12.3 GM/dL (10.7-15.3) 12/20/18 07:50 Hct 38.5 % (32.4-45.2) 12/20/18 07:50 MCV 85.6 fl (80-96) 12/20/18 07:50 MCH 27.3 pg (25.7-33.7) 12/20/18 07:50 MCHC 31.9 g/dl (32.0-36.0) L 12/20/18 07:50 RDW 17.6 % (11.6-15.6) H 12/20/18 07:50 Plt Count 330 K/MM3 (134-434) 12/20/18 07:50 MPV 9.8 fl (7.5-11.1) 12/20/18 07:50 Sodium 141 mmol/L (136-145) 12/20/18 07:50 Potassium 4.1 mmol/L (3.5-5.1) 12/20/18 07:50 Chloride 109 mmol/L (98-107) H 12/20/18 07:50 Carbon Dioxide 26 mmol/L (21-32) 12/20/18 07:50 Anion Gap 6 MMOL/L (8-16) L 12/20/18 07:50 BUN 24 mg/dL (7-18) H 12/20/18 07:50 Creatinine 0.8 mg/dL (0.55-1.3) 12/20/18 07:50 Est GFR (CKD-EPI)AfAm 92.87 12/20/18 07:50 Est GFR (CKD-EPI)NonAf 80.13 12/20/18 07:50 POC Glucometer 108 UNITS (80-120) 12/22/18 05:29 Random Glucose 76 mg/dL (74-106) 12/20/18 07:50 Calcium 8.8 mg/dL (8.5-10.1) 12/20/18 07:50 Total Bilirubin 0.7 mg/dL (0.2-1) 12/20/18 07:50 AST 15 U/L (15-37) 12/20/18 07:50 ALT 31 U/L (13-61) 12/20/18 07:50 Alkaline Phosphatase 90 U/L (45-117) 12/20/18 07:50 Total Protein 6.6 g/dl (6.4-8.2) 12/20/18 07:50 Albumin 3.7 g/dl (3.4-5.0) 12/20/18 07:50 RPR Titer Nonreactive (NONREACTIVE) 12/20/18 07:50 HIV 1&2 Antibody Screen Negative 12/20/18 09:20 HIV P24 Antigen Negative 12/20/18 09:20 lab noted Assessment: 12/22/18 15:07 withdrawal sx Plan: continue detox
[2018-12-22] MEDS: MAG HYDROX/AL HYDROX/SIMETH 30 ML UNIT-DOSE CUP PO PRN (20:02)
[2018-12-22] MEDS: ATORVASTATIN CA 20 MG TABLET (FP) PO SCH (21:31)
[2018-12-22] MEDS: QUEtiapine FUMARATE 25 MG TABLET (FP) PO SCH (21:31)
[2018-12-22] MEDS: THIAMINE HCL 100 MG TABLET (FP) PO SCH (21:31)
[2018-12-22] MEDS: MELATONIN 5 MG TABLETS PO PRN (21:32)
[2018-12-23] MEDS: chlordiazePOXIDE HCL 10 MG CAPSULE PO SCH (06:03)
[2018-12-23] MEDS: EMTRICITABINE 200MG/TENOFOVIR 300MG PO SCH (10:09)
[2018-12-23] MEDS: PRENATAL VITAMINS W/ FOLIC ACID TABLET (FP) PO SCH (10:09)
[2018-12-23] MEDS: ASPIRIN 81 MG CHEWABLE TABLETS PO SCH (10:09)
[2018-12-23] MEDS: amLODIPine BESYLATE 10 MG TABLET (FP) PO SCH (10:10)
[2018-12-23] MEDS: RANITIDINE HCL 150 MG TABLET (FP) PO SCH (10:10)
[2018-12-23] MEDS: valACYclovir HCL 1000 MG TABLET PO SCH (10:10)
[2018-12-23 13:51] VITALS: BP 109/69; PULSE 83; TEMP 97.3
--- NOTE | 2018-12-23 14:06 | DS ---
[facility] Detox Discharge Summary Admission Date: 12/19/18 Discharge Date: 12/23/18 - History Present History: Alcohol Dependence Additional Comments: 58 years old female admitted on 12/19/18 for alcohol withdrawal stabilization completed detox regimen aftercare [facility] Physical Exam Results Vital Signs: Vital Signs Temperature 97.3 F L 12/23/18 13:50 Pulse Rate 83 12/23/18 13:50 Respiratory Rate 18 12/23/18 13:50 Blood Pressure 109/69 12/23/18 13:50 O2 Sat by Pulse Oximetry (%) agrees to return to infectious disease specialist for medical and mental issues Pertinent Admission Physical Exam Findings: alcohol withdrawal sx Laboratory Last Values WBC 8.6 K/mm3 (4.0-10.0) 12/20/18 07:50 RBC 4.49 M/mm3 (3.60-5.2) 12/20/18 07:50 Hgb 12.3 GM/dL (10.7-15.3) 12/20/18 07:50 Hct 38.5 % (32.4-45.2) 12/20/18 07:50 MCV 85.6 fl (80-96) 12/20/18 07:50 MCH 27.3 pg (25.7-33.7) 12/20/18 07:50 MCHC 31.9 g/dl (32.0-36.0) L 12/20/18 07:50 RDW 17.6 % (11.6-15.6) H 12/20/18 07:50 Plt Count 330 K/MM3 (134-434) 12/20/18 07:50 MPV 9.8 fl (7.5-11.1) 12/20/18 07:50 Sodium 141 mmol/L (136-145) 12/20/18 07:50 Potassium 4.1 mmol/L (3.5-5.1) 12/20/18 07:50 Chloride 109 mmol/L (98-107) H 12/20/18 07:50 Carbon Dioxide 26 mmol/L (21-32) 12/20/18 07:50 Anion Gap 6 MMOL/L (8-16) L 12/20/18 07:50 BUN 24 mg/dL (7-18) H 12/20/18 07:50 Creatinine 0.8 mg/dL (0.55-1.3) 12/20/18 07:50 Est GFR (CKD-EPI)AfAm 92.87 12/20/18 07:50 Est GFR (CKD-EPI)NonAf 80.13 12/20/18 07:50 POC Glucometer 100 UNITS (80-120) 12/23/18 06:05 Random Glucose 76 mg/dL (74-106) 12/20/18 07:50 Calcium 8.8 mg/dL (8.5-10.1) 12/20/18 07:50 Total Bilirubin 0.7 mg/dL (0.2-1) 12/20/18 07:50 AST 15 U/L (15-37) 12/20/18 07:50 ALT 31 U/L (13-61) 12/20/18 07:50 Alkaline Phosphatase 90 U/L (45-117) 12/20/18 07:50 Total Protein 6.6 g/dl (6.4-8.2) 12/20/18 07:50 Albumin 3.7 g/dl (3.4-5.0) 12/20/18 07:50 RPR Titer Nonreactive (NONREACTIVE) 12/20/18 07:50 HIV 1&2 Antibody Screen Negative 12/20/18 09:20 HIV P24 Antigen Negative 12/20/18 09:20 lab noted - Treatment Hospital Course: Detox Protocol Followed, Detoxed Safely, Responded well, Discharged Condition Good, Rehab Referral Accepted Patient has Accepted [facility] Referral to: [facility] - Medication Discharge Medications: Ambulatory Orders Buspirone HCl [Buspar -] 20 mg PO BID 08/03/18 Loratadine 10 mg PO DAILY #14 tablet 10/07/18 Amlodipine Besylate [Norvasc -] 10 mg PO DAILY #14 tablet 11/12/18 Emtricitabine/Tenofovir [Truvada -] 1 tab PO DAILY #30 tablet 11/12/18 Fluoxetine HCl [Prozac -] 20 mg PO DAILY #30 capsule 11/12/18 Quetiapine Fumarate [Seroquel -] 25 mg PO HS #30 tablet 11/12/18 Ranitidine HCl 150 mg PO HS #14 capsule 11/12/18 Simvastatin 40 mg PO DAILY #14 tablet 11/12/18 Valacyclovir HCl [Valtrex -] 1,000 mg PO DAILY #14 tablet 11/12/18 Aspirin [ASA -] 81 mg PO DAILY 12/19/18 - Diagnosis (1) Alcohol dependence with uncomplicated withdrawal Current Visit: Yes Status: Acute (2) Asthma Current Visit: Yes Status: Chronic Qualifiers: Asthma severity: unspecified severity Asthma persistence: unspecified Asthma complication type: with acute exacerbation Qualified Code(s): J45.901 - Unspecified asthma with (acute) exacerbation (3) COPD (chronic obstructive pulmonary disease) Current Visit: Yes Status: Chronic Qualifiers: COPD type: unspecified COPD Qualified Code(s): J44.9 - Chronic obstructive pulmonary disease, unspecified (4) Chronic GERD Current Visit: Yes Status: Chronic (5) Nicotine dependence, uncomplicated Current Visit: Yes Status: Acute Qualifiers: Nicotine product type: cigarettes Qualified Code(s): F17.210 - Nicotine dependence, cigarettes, uncomplicated (6) Substance induced mood disorder Current Visit: Yes Status: Suspected (7) HIV (human immunodeficiency virus infection) Current Visit: Yes Status: Chronic Qualifiers: HIV symptom status: asymptomatic Qualified Code(s): Z21 - Asymptomatic human immunodeficiency virus [HIV] infection status (8) Substance induced mood disorder Current Visit: No Status: Suspected - AMA Did Patient Leave Against Medical Advice: No
== END 2018-12-23 14:58 | disposition home or self-care (01) | DRG 774 ==
LOC: YASAS 12:38 → Y3N 14:26
PROVIDERS: ADMIT Surgery; ATTEND Surgery
PROC: HZ2ZZZZ Detoxification Services for Substance Abuse Treatment (ICD-10-PCS; principal; 2018-12-19)
DX: F10.230 Alcohol dependence with withdrawal, uncomplicated (principal); F14.20 Cocaine dependence, uncomplicated; F17.210 Nicotine dependence, cigarettes, uncomplicated; F19.24 Other psychoactive substance dependence with psychoactive substance-induced mood disorder; Z21 Asymptomatic human immunodeficiency virus [HIV] infection status; I25.10 Atherosclerotic heart disease of native coronary artery without angina pectoris; I10 Essential (primary) hypertension; Z95.5 Presence of coronary angioplasty implant and graft; Z95.810 Presence of automatic (implantable) cardiac defibrillator; J44.9 Chronic obstructive pulmonary disease, unspecified; J45.901 Unspecified asthma with (acute) exacerbation; R73.03 Prediabetes; K21.9 Gastro-esophageal reflux disease without esophagitis; Z86.73 Personal history of transient ischemic attack (TIA), and cerebral infarction without residual deficits; Z86.19 Personal history of other infectious and parasitic diseases; Z91.89 Other specified personal risk factors, not elsewhere classified
CPT/HCPCS: 36415; 80053; 82962; 85027; 86593; 87389

== ENCOUNTER 2021-10-08 09:45 | Inpatient (IN) | payer OTHER ==
[2021-10-08] MEDS ORDERED: IBUPROFEN 400 MG TABLET (FP) PO PRN (10:18)
[2021-10-08] MEDS ORDERED: NICOTINE 10 MG CARTRIDGE (INHALER) IH PRN (10:18)
[2021-10-08] MEDS ORDERED: BISMUTH SUBSALICYLATE 262 MG/15 ML BTL PO PRN (10:18)
[2021-10-08] MEDS ORDERED: MAGNESIUM CITRATE 300 ML BOTTLE PO PRN (10:18)
[2021-10-08] MEDS ORDERED: MENTHOL/PHENOL 1 EACH UD MM PRN (10:18)
[2021-10-08] MEDS ORDERED: LOPERAMIDE HCL 2 MG CAPSULE PO PRN (10:18)
[2021-10-08] MEDS ORDERED: ONDANSETRON *ODT* 4 MG TABLET SL PRN (10:18)
[2021-10-08] MEDS ORDERED: MAGNESIUM HYDROX 2400MG/30ML ORAL SUSPENSION 30 ML CUP PO PRN (10:18)
[2021-10-08] MEDS ORDERED: ACETAMINOPHEN 325 MG TABLET (FP) PO PRN ×2 (10:18)
[2021-10-08] MEDS ORDERED: MAG HYDROX/AL HYDROX/SIMETH 30 ML UNIT-DOSE CUP PO PRN (10:18)
[2021-10-08 10:48] VITALS: BMI 22.6
[2021-10-08] MEDS: hydrOXYzine PAMOATE 25 MG CAPSULE (FP) PO SCH ×3 (13:35→22:28)
[2021-10-08] MEDS: amLODIPine BESYLATE 10 MG TABLET (FP) PO SCH (13:35)
[2021-10-08 16:44] LABS: HEMATOCRIT 41.1 % (32.4-45.2); HEMOGLOBIN 12.8 GM/dL (10.7-15.3); MCH 26.7 pg (25.7-33.7); MCHC 31.1 g/dl (32.0-36.0); MEAN CELL VOLUME 85.8 fl (80-96); PLATELET COUNT 304 10^3/uL (134-434); RBC 4.79 M/mm3 (3.60-5.2); RDW 15.6 % (11.6-15.6); WHITE BLOOD COUNT 7.2 K/mm3 (4.0-10.0)
[2021-10-08 16:50] LABS: BLOOD UREA NITROGEN 27.6 mg/dL (7-18); CALCIUM 9.2 mg/dL (8.5-10.1)
[2021-10-08 16:51] LABS: ALBUMIN 3.8 g/dl (3.4-5.0)
[2021-10-08 16:54] LABS: CREATININE 0.9 mg/dL (0.55-1.3)
[2021-10-08 16:55] LABS: BILIRUBIN,TOTAL 0.5 mg/dL (0.2-1); TOT PROT 6.8 g/dl (6.4-8.2)
[2021-10-08] MEDS: MELATONIN 5 MG TABLETS PO SCH (22:26)
[2021-10-08] MEDS: METHOCARBAMOL 500 MG TABLET PO PRN (22:27)
[2021-10-08] MEDS: THIAMINE HCL 100 MG TABLET (FP) PO SCH (22:28)
[2021-10-09] MEDS: hydrOXYzine PAMOATE 25 MG CAPSULE (FP) PO SCH ×5 (07:33→22:29)
[2021-10-09] MEDS: PRENATAL VITAMINS W/ FOLIC ACID TABLET (FP) PO SCH (10:23)
[2021-10-09] MEDS: valACYclovir HCL 500 MG TABLET (FP) PO SCH ×2 (10:23→22:30)
[2021-10-09] MEDS: amLODIPine BESYLATE 10 MG TABLET (FP) PO SCH (10:24)
[2021-10-09] MEDS ORDERED: QUEtiapine FUMARATE 25 MG TABLET PO SCH (22:00)
[2021-10-09] MEDS: MELATONIN 5 MG TABLETS PO SCH (22:30)
[2021-10-09] MEDS: THIAMINE HCL 100 MG TABLET (FP) PO SCH (22:30)
[2021-10-09] MEDS: METHOCARBAMOL 500 MG TABLET PO PRN (22:31)
[2021-10-10] MEDS: hydrOXYzine PAMOATE 25 MG CAPSULE (FP) PO SCH ×2 (06:01→10:33)
[2021-10-10 06:08] LABS: SARS-CoV-2 NAA Not Detected (Not Detected)
[2021-10-10 07:29] VITALS: TEMP 97.5
[2021-10-10 09:11] VITALS: BP 113/71; PULSE 73
[2021-10-10] MEDS ORDERED: FLUoxetine HCL 10 MG CAPSULE PO SCH (10:00)
[2021-10-10] MEDS ORDERED: FLUoxetine HCL 10 MG TABLET PO SCH (10:00)
[2021-10-10] MEDS ORDERED: FLUoxetine HCL 20 MG CAPSULE PO SCH (10:00)
[2021-10-10] MEDS: amLODIPine BESYLATE 10 MG TABLET (FP) PO SCH (10:33)
[2021-10-10] MEDS: PRENATAL VITAMINS W/ FOLIC ACID TABLET (FP) PO SCH (10:33)
[2021-10-10] MEDS: valACYclovir HCL 500 MG TABLET (FP) PO SCH (10:33)
== END 2021-10-10 11:15 | disposition other institution (70) | DRG 774 ==
LOC: YASAS 09:45 → UNDOADMIN 11:07 → Y3N 11:07
PROVIDERS: ADMIT Allergy & Immunology; ATTEND Allergy & Immunology
PROC: HZ2ZZZZ Detoxification Services for Substance Abuse Treatment (ICD-10-PCS; principal; 2021-10-08)
DX: F10.230 Alcohol dependence with withdrawal, uncomplicated (principal); F14.20 Cocaine dependence, uncomplicated; F12.20 Cannabis dependence, uncomplicated; F17.210 Nicotine dependence, cigarettes, uncomplicated; F19.24 Other psychoactive substance dependence with psychoactive substance-induced mood disorder; G47.00 Insomnia, unspecified; R56.1 Post traumatic seizures; J44.9 Chronic obstructive pulmonary disease, unspecified; K21.9 Gastro-esophageal reflux disease without esophagitis; I25.10 Atherosclerotic heart disease of native coronary artery without angina pectoris; I10 Essential (primary) hypertension; Z20.6 Contact with and (suspected) exposure to human immunodeficiency virus [HIV]; Z20.2 Contact with and (suspected) exposure to infections with a predominantly sexual mode of transmission; Z86.73 Personal history of transient ischemic attack (TIA), and cerebral infarction without residual deficits; Z87.42 Personal history of other diseases of the female genital tract; Z95.5 Presence of coronary angioplasty implant and graft; Z95.810 Presence of automatic (implantable) cardiac defibrillator
CPT/HCPCS: 36415; 80053; 85027; 86593; 86780; C9803; U0003; U0005